=== PATIENT | male | born 1985 | race Hispanic/Latino ===

== ENCOUNTER 2019-12-12 09:04 | Inpatient (IN) | payer OTHER ==
[2019-12-12] MEDS ORDERED: Naloxone HCl 0.4 mg/ml Vial ONE (09:09)
[2019-12-12] MEDS ORDERED: Ketamine 50 MG/ML (10ML VIAL) ONE (09:19)
[2019-12-12] MEDS ORDERED: Succinylcholine Chloride 20 MG/ML 10 ml SYRINGE FS ONE ×3 (09:19→10:08)
[2019-12-12] MEDS ORDERED: Propofol 1,000 MG/100 ML VIAL IV ONE ×2 (09:27→12:49)
[2019-12-12] MEDS ORDERED: levETIRAcetam In NaCl (Iso-Os) 200 ML ONE (09:36)
[2019-12-12] MEDS ORDERED: Magnesium 2 GM/50 ML BAG (IN WATER) ONE (09:36)
[2019-12-12] MEDS ORDERED: Fentanyl 100 MCG/2 ML VIAL ONE (09:37)
[2019-12-12] MEDS ORDERED: Ondansetron PF 4 MG/2 ML Vial ONE (09:39)
[2019-12-12 10:06] LABS: #Basophils 0.1 thou/uL (0.0-0.2); #Lymphocytes 1.9 thou/uL (1.20-3.40); #Monocytes 0.8 thou/uL (0.11-0.59); #Neutrophils 16.2 thou/uL (1.40-6.50); %Basophils 0.3 % (0.0-1.0); %Eosinophils 0.2 % (0.0-10.0); %Lymphocytes 9.9 % (21.0-51.0); %Monocytes 4.2 % (0.0-10.0); %Neutrophils 85.4 % (42.0-75.0); Hemoglobin 14.1 g/dL (14.0-18.0); Mean Corpuscular HGB CONC 34.3 g/dL (32.0-36.0); Mean Corpuscular Hemoglobin 31.2 pg (27.0-31.0); Mean Corpuscular Volume 90.9 fL (78.0-98.0); Mean Platelet Volume 8.6 fL (7.4-10.4); Platelet Count 277 thou/uL (130-400); RBC Distribution Width 12.5 % (11.5-14.5); Red Blood Cell (RBC) Count 4.52 mill/uL (4.70-6.10); White Blood Cell (WBC) Count 18.9 thou/uL (4.8-10.8)
[2019-12-12] MEDS ORDERED: Labetalol HCl 100 MG/20 ML VIAL ONE (10:07)
[2019-12-12] MEDS ORDERED: fentaNYL Citrate/PF 2,000 MCG in Sodium Chloride 0.9% 60 ML IV SCH (10:15)
[2019-12-12 10:19] LABS: Acetaminophen Less than 6.0 mcg/mL (10.0-30.0); Alcohol Less than 10 mg/dL (Less than 10); CK (CPK) 294 U/L (30-200); Salicylate Less than 8.0 mg/dL (15.0-30.0)
[2019-12-12 10:21] LABS: ALT (SGPT) 56 U/L (8-55); AST (SGOT) 36 U/L (5-34); Albumin 4.1 g/dL (3.5-5.0); Alkaline Phosphatase 82 U/L (40-110); Anion Gap 16 mmol/L (10-20); BUN (Urea Nitrogen) 20 mg/dL (8.9-20.6); Bilirubin, Total 0.6 mg/dL (0.2-1.2); Calc. Creatinine Clearance 0 mL/min (70-130); Calcium 9.1 mg/dL (7.8-10.44); Carbon Dioxide 26 mmol/L (22-29); Chloride 100 mmol/L (98-107); Estimated GFR-MDRD 58; Globulin 4.2 g/dL (2.4-3.5); Glucose 192 mg/dL (70-105); Potassium 3.1 mmol/L (3.5-5.1); Protein, Total 8.3 g/dL (6.0-8.3); Sodium 139 mmol/L (136-145)
[2019-12-12 10:35] LABS: Bilirubin Negative (Negative); Blood, Urine 1+ (Negative); Clarity Turbid (Clear); Glucose, Urine (Dipstick) 70 mg/dL (Negative); Ketone, Urine Trace mg/dL (Negative); Leukocyte Negative Leu/uL (Negative); Nitrite Negative (Negative); Protein, Urine (Dipstick) 600 mg/dL (Neg-Trace); Specific Gravity, Urine 1.024 (1.002-1.036); Squamous Epithelial 0-3 HPF (0-3); Urobilinogen 3 mg/dL (Less than 2)
[2019-12-12 10:40] LABS: Amphetamine Not Detected (NotDetected); Barbiturates Screen Not Detected (NotDetected); Benzodiazepine Screen Not Detected (NotDetected); Cocaine Metabolite Screen Not Detected (NotDetected); Medtox Control Line Valid? VALID (VALID); Medtox Reader # READER 1; Methadone Not Detected (NotDetected); Methamphetamine Not Detected (NotDetected); Opiate Screen Not Detected (NotDetected); Oxycodone Screen Not Detected (NotDetected); Phencyclidine (PCP) Not Detected (NotDetected); THC/Cannabinoid Screen Not Detected (NotDetected); Tricyclic Screen Not Detected (NotDetected)
[2019-12-12 10:41] LABS: CKMB 3.1 ng/mL (0-6.6)
[2019-12-12 10:48] LABS: Bacteria/HPF None Seen HPF (None Seen); Calcium Oxalate Crystals 1+ HPF (None Seen)
--- NOTE | 2019-12-12 10:49 | RAD ---
EXAM: CHEST ONE VIEW HISTORY: Post intubation COMPARISON: None FINDINGS: Endotracheal tube is noted in place with the tip overlying the T4 vertebral body and above the level of the hilda. Nasogastric tube is noted in place which courses in the left upper quadrant, the tip is not imaged. The heart is magnified by projection and depth of inspiration. There is suggestion of mild widening of the mediastinum which may be attributable to technique and depth of inspiration, but repeat chest x-ray is recommended. There are patchy areas of increased density seen in the medial aspect right upper lung zone and at the left lung base which could be related to areas of volume loss. However, given history of trauma, areas of contusion cannot be excluded. No pleural fluid or pn eumothorax is appreciated on this supine chest x-ray.. No obvious fracture is seen. IMPRESSION: 1. Suggested widening of the mediastinum which may be factor of technique and depth of inspiration. R epeat chest x-ray versus CT scan thorax is recommended. 2. Patchy parenchymal densities medial aspect right upper lung zone and at the left lung base and to a lesser extent left perihilar region. These findings may be related to areas of atelectasis. Contusion is a possibility given history of trauma. 3. No pneumothorax or pleural effusion is evident. 4. Endotracheal tube and nasogastric tubes noted in place.
[2019-12-12] MEDS ORDERED: levETIRAcetam 500 MG/100 ML PREMIX BAG ONE (10:53)
--- NOTE | 2019-12-12 11:05 | CT ---
CT HEAD WITHOUT IV CONTRAST COMPARISON: None HISTORY: Decerebrated posturing on seen. Responsive only to pain. TECHNIQUE: Axial CT imaging at 5 mm intervals from vertex through skull base without contrast FINDINGS: There is increased density seen within the christopher measuring 2.8 cm x 1.6 cm compatible with hemorrhage within the christopher. There is mild adjacent edema. There is effacement of the fourth ventricle. No hemorrhage is seen within the cerebral hemispheres bilaterally. There is no evidence of hydrocepha amanda. No acute infarction or midline shift is seen. Skull base has a normal CT appearance. Visualized paranasal sinuses are clear. Osseous structures appear intact.Nasogastric tube is noted in place. On the welder gun image, there is rivka dence of a tracheostomy tube in place. IMPRESSION: 1. 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 There is no evidence of hydrocephalus. 2. Above findings discussed Dr. Miguel in the emergency department on 12/12/2019 at 1102 hours.
[2019-12-12] MEDS ORDERED: niCARdipine 20MG In NaCl 20 MG/200 ML BAG ONE ×2 (11:09→13:42)
--- NOTE | 2019-12-12 11:13 | CT ---
EXAM: CT cervical spine PROVIDED CLINICAL HISTORY: Patient found down with decerebrate posturing on seen. Responsive only to pain. Possible seizure. TECHNIQUE: Contiguous axial CT images are obtained through the cervical spine from the skull base to the T2 leve l. Sagittal and coronal reformatted images are provided. COMPARISON: None FINDINGS: There is partial visualization of a tracheostomy tube terminating in the trachea. Partial visualizati on of a nasogastric tube is noted in place. Visualized upper lung zones demonstrate area of consolidation in the medial right upper lung zone incompletely imaged. This could be related to atele ctasis or aspiration pneumonitis. Pneumonia is a possibility. There are additional minimal groundglass opacities in the right upper lung zone as well. Minimal atelectasis seen in the visualize d left lung apex. No fracture or traumatic subluxation is seen involving the cervical spine. As noted on head CT obtained prior to this examination, there is a large area of hemorrhage within th e central christopher with effacement of the fourth ventricle. There is fluid seen within the posterior nasopharynx and oropharynx likely related to placement trach eostomy device and endotracheal tube. No prevertebral soft tissue swelling apparent. IMPRESSION: 1. Incompletely visualized area of consolidation medial right upper lung zone with additional patchy groundglass densities in the visualized right lung apex. These findings are likely attributable to pneumonia or aspiration pneumonitis. Atelectasis is a possibility. Contusion is thought less likely. 2. Tracheostomy device and nasogastric tube in place. 3. No fracture or subluxation involving the cervical spine. 4. Central pontine hemorrhage..
[2019-12-12 11:25] LABS: SARS-CoV-2 NAA Rapid Test Not Detected (NotDetected)
[2019-12-12 11:33] LABS: INR-International Normal Ratio 1.1; PTT 31.9 sec (22.9-36.1)
[2019-12-12] MEDS ORDERED: Ondansetron PF 4 MG/2 ML Vial IVP PRN (12:15)
[2019-12-12] MEDS ORDERED: Docusate 100 MG CAP PO PRN (12:15)
[2019-12-12] MEDS ORDERED: Milk Of Magnesia 30 ML UDCUP PO PRN (12:15)
[2019-12-12 12:32] LABS: Actual Bicarbonate (HCO3a) 23.4 mEq/L (22-28); Base Excess (BEa) -1.1 mEq/L (-2.0 to +3.0); CO2 Tension 38.6 mmHg (35.0-45.0); Carboxyhemoglobin (COHb) 0.1 gm% (0.0-3.0)
[2019-12-12 12:33] LABS: Analyzer IN Cardio ER; Calcium, Ionized (arterial) 1.13 mmol/L (1.12-1.30); Potassium - ABG Lab 3.39 mmol/L (3.70-5.30); Puncture Site LRA
[2019-12-12] MEDS ORDERED: Ertapenem 1 GM in Sodium Chloride 0.9% 100 ML IVPB SCH (13:15)
[2019-12-12] MEDS ORDERED: Electrolyte Replacement Protoc 1 EACH EACH FS ONE (13:24)
[2019-12-12] MEDS ORDERED: DC Sedation Protocol FS ONE (13:24)
[2019-12-12] MEDS ORDERED: Electrolyte Replacement Protocol FS PRN (13:45)
--- NOTE | 2019-12-12 14:05 | CON ---
DATE OF CONSULTATION: 12/12/2019 CONSULTING PHYSICIAN: [facility]. REASON FOR CONSULTATION: The patient is on a ventilator. HISTORY OF PRESENT ILLNESS: This patient is a 34-year-old male, who has apparently found unresponsive by his father this morning. Initially, he was having some seizure-type activity. He was given some Ativan. He was brought to the ER. He was obtunded. They tried to intubate him, but could not get oropharyngeal airway and the patient ended up having to have a cricothyrotomy with subsequent passage of a size 6 endotracheal tube. This was later revised by the General Surgery Team. The patient was initially very hypertensive. He has been placed on a nicardipine drip. Unfortunately, CT scan has demonstrated a very large hemorrhage in his christopher. PAST MEDICAL HISTORY: Hypertension. PAST SURGICAL HISTORY: Unremarkable. SOCIAL HISTORY: Unremarkable. ALLERGIES: NONE. MEDICATIONS: Prior to admission, he takes some type of antihypertensive. REVIEW OF SYSTEMS: Cannot be obtained because the patient is obtunded. PHYSICAL EXAMINATION: VITAL SIGNS: Temperature is 98; pulse 75; blood pressure 149/80, on nicardipine drip; and O2 saturation 100%. NEUROLOGICAL: The patient has a completely unresponsive exam. His pupils are 2 mm, pinpoint, unreactive to light. He has no ocular movements. He has no blink reflex. He has no gag reflex. He has no response to pain in any of the extremities. No reflexive activity. He has no spontaneous respirations. HEENT: Otherwise, unremarkable. NECK: Remarkable for the cricothyrotomy site. LUNGS: Clear. CARDIAC: S1 and S2, regular. ABDOMEN: Obese. EXTREMITIES: No edema. LABORATORY DATA: Sodium 139, potassium 3.1, chloride 100, CO2 of 26, BUN 20, creatinine 1.4, and glucose 192. CPK 294, troponin 0.031. TSH 0.61. PH of 7.40, pCO2 of 38, pO2 of 64 on SIMV rate 24, tidal volume 500, PEEP 10, pressure support 10, and FiO2 of 100%. White blood cell count 18.9, hematocrit 41, and platelet count 277. Tox screen negative. COVID test negative. I reviewed CT. His chest x-ray shows no evidence of trauma. There may be a subtle right upper lobe and left lower lobe infiltrate. ASSESSMENT: 1. Pontine hemorrhage. 2. 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 3. Status post need for cricothyrotomy for airway. 4. Hypertension. PLAN: He has been started on IV antibiotics. He will remain on mechanical ventilation. He probably need a cerebral blood flow study tomorrow to better assess, but I do not think he is likely to survive this anoxic event. Job ID: [id number]
[2019-12-12] MEDS ORDERED: DISCONTINUE PREVIOUS NARCOTIC PAIN MEDICATIONS AND BENZODIAZEPINES FS SCH (14:15)
[2019-12-12] MEDS ORDERED: Fentanyl BOLUS 250 ML IVPB PRN (14:15)
[2019-12-12] MEDS ORDERED: Propofol BOLUS 1,000 MG/100 ML VIAL IV PRN (14:15)
[2019-12-12] MEDS ORDERED: Potassium Chloride 20 MEQ TAB PER TUBE SCH (14:30)
[2019-12-12] MEDS: Sodium Chloride 0.9% 1,000 ML IV SCH (14:33)
--- NOTE | 2019-12-12 15:26 | CON ---
NEUROLOGY CONSULTATION DATE OF CONSULTATION: 12/12/2019 REASON FOR CONSULTATION: Altered mental status. HISTORY OF PRESENT ILLNESS: Mr. Alanis Kay is a 34-year-old male with history significant for hypertension, who was found down by his father unresponsive this morning. Initially, there was a concern that he had some seizure-like activity on presentation and was given Ativan and brought to the emergency room for further evaluation. He was found obtunded at that time, but they were unable to intubate him because he could not get the oropharyngeal airway and he ended up having cricothyrotomy with subsequent endotracheal tube placement. The patient is unable to provide the history. History is obtained from review of the medical records and also from the who is at bedside. The patient was initially hypertensive and was started on nicardipine drip, and head CT was done, which shows a large hemorrhage in the christopher. REVIEW OF SYSTEMS: Unobtainable due to the patient's medical status. PAST MEDICAL HISTORY: Hypertension. PAST SURGICAL HISTORY: Unremarkable. SOCIAL HISTORY: . Lives with his and 13-year-old son. He works as a local company flatbed truck driver. No documented history of alcohol or drug abuse. ALLERGIES: NKDA PHYSICAL EXAMINATION: VITAL SIGNS: Blood pressure 140/80, pulse 80, respiratory rate 18. CVS: Regular rate and rhythm. CHEST: Clear. ABDOMEN: Soft. NECK: Supple. NEUROLOGIC: Mental status; the patient is intubated and does not follow commands or maintain eye contact. Cranial nerves; pupils 2 mm, round, nonreactive to light. Face symmetric. Tongue midline. Corneals negative. Gag negative. Cough negative. Motor; muscle tone and bulk are normal. Strength, no spontaneous movement of all 4 extremities seen. Sensory, no withdrawal of all 4 extremities to nailbed pressure. Cerebellar, could not be assessed due to the patient's condition. Gait, deferred due to the patient's medical condition. DIAGNOSTIC STUDIES: Data reviewed. I reviewed the head CT, which shows pontine hemorrhage. Other labs were reviewed. ASSESSMENT AND PLAN: Mr. Russell Kay is consulted for altered mental status. The patient has absent brainstem reflexes and long-tract signs, which means the chances of functional poor, recovery grave. Continue neuro checks every 2 hours. Continue medical management per primary team and Pulmonology. The patient is scheduled for cerebral blood flow study tomorrow to assess further prognosis. However, the chances of function, meaningful recovery remain grave based on his present exam. Consider EEG for anoxic brain injury pattern. Plan and findings were discussed with the and the nursing staff in detail. Thank you for the consult. Job ID: [id number] MTDD
[2019-12-12] MEDS: niCARdipine 25 MG in Sodium Chloride 0.9% 250 ML 240 ML IVPB PRN ×3 (15:49→19:26)
--- NOTE | 2019-12-12 17:13 | PRG ---
DATE OF SERVICE: 12/12/2019 I personally interviewed and examined the patient, agreed with documentation of Corbin Molina PA-C, dated 12/12/2019. Briefly, Russell Kay is a 34-year-old obese young man with hypertension and acute neurological decline. He was brought to our emergency department, where airway management was very difficult. A cricothyroidotomy was done and then he was sent for scanning of the brain. The brain scan revealed intracerebral hemorrhage in a very unfortunate location. This was the lower midbrain and upper and middle christopher. He did not develop hydrocephalus as of the first scan. Since that scan and his emergency department evaluation, he has been sent to the ICU. He has not made neurological recovery. On examination, there are pinpoint pupils. The pupils are so small, it is difficult to tell whether they react. There is sluggish corneal reflex on both sides. There is absent doll's eyes reflex. There is a gag and he is breathing over the ventilator. To painful stimulation, he does not want to draw any of his 4 extremities. There is no motion. I had a long discussion with the family sitting outside the hospital and informed them that there is a very poor prognosis with regard to returning to independence. The likely/best case scenario is survival with a marked decrease in independence. It is likely he will be dependent on others for feeding (perhaps feeding tube, tracheostomy care, and mobilization). Ascending and descending pathways through the christopher have been permanently damaged. Other pathways have been stretched and the proportion of speech can only be determined in the months to years that follow. Most likely, he will be discharged to a jail with continued aggressive care. A followup CT scan of the brain will be done tomorrow. Should he develop hydrocephalus, we will revisit with the family whether they would want an external ventricular drain placed or no further intervention. If they want a drain placed, there is a chance that he would become shunt dependent and that would be an operation, we would do at a later date. We briefly discussed all of these things with the family just to prepare them for what comes in the following days to weeks. (15 minutes). Job ID: [id number]
[2019-12-12] MEDS: Labetalol HCl 100 MG/20 ML VIAL SLOW IVP PRN (17:19)
--- NOTE | 2019-12-12 17:27 | CON ---
DATE OF CONSULTATION: 12/12/2019 CHIEF COMPLAINT: Evaluation of unresponsiveness. HISTORY OF PRESENT ILLNESS: Mr. Thapa is a 34-year-old gentleman, who presents to the ED with altered mental status and found by his father down and unresponsive. 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 When EMS arrived, patient was unresponsive and having seizure- like activity. He was given Ativan prior to transportation of the patient to the ED. When he arrived to the emergency room, he was given labetalol for his high blood pressure and was trached because they were unable to intubate him due to his size. Head CT indicated a pontine bleed. It is unconfirmed, but patient is believed not to be on any blood thinners. REVIEW OF SYSTEMS: Unable to obtain review of systems due to patient's unresponsiveness. PAST MEDICAL HISTORY: Unable to confirm with patient. SURGICAL HISTORY: Unable to confirm with patient. SOCIAL HISTORY: Unable to confirm with patient. MEDICATIONS: Unknown. Unable to obtain. ALLERGIES: NO KNOWN ALLERGIES. UNABLE TO CONFIRM WITH PATIENT. PHYSICAL EXAMINATION: VITAL SIGNS: BP 210/136, pulse 82, respiratory rate 26, and temperature 99.8. HEENT: Head, atraumatic, normocephalic. Eyes, pinpoint. Pupils with minimal reactivity. NECK: Normal. NEUROLOGIC: Patient is obtunded on exam. He is not awake or alert. There is no posturing with painful stimuli in any of his extremities. LABORATORY DATA: WBC 18.9, platelets 277. PT 15, INR 1.1, and PTT 31.9. Sodium 139. Toxicology screen, no illicit drugs are noted. Head CT, pontine bleed. ASSESSMENT: 1. Pontine hemorrhage. 2. Unresponsiveness with altered mental status. PLAN: Repeat the CT of the brain tomorrow morning. Supportive care. No intracranial surgery at this time. We will have him followup in 2 to 3 weeks in our clinic and repeat the scan prior to the visit. We will also get an MRI of the brain in 1 to 3 months, hopefully if recovers. Job ID: [id number] MTDD
--- NOTE | 2019-12-12 17:42 | CON ---
DATE OF CONSULTATION: 12/12/2019 CHIEF COMPLAINT: Evaluation of unresponsiveness. HISTORY OF PRESENT ILLNESS: Mr. Thapa is a 34-year-old gentleman, who presents to the ED with altered mental status and found by his father down and unresponsive. 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 When EMS arrived, patient was unresponsive and having seizure-like activity. He was given Ativan prior to transportation of the patient to the ED. When he arrived to the emergency room, he was given labetalol for his high blood pressure and was trached because they were unable to intubate him due to his size. Head CT indicated a pontine bleed. It is unconfirmed, but patient is believed not to be on any blood thinners. REVIEW OF SYSTEMS: Unable to obtain review of systems due to patient's unresponsiveness. PAST MEDICAL HISTORY: Unable to confirm with patient. SURGICAL HISTORY: Unable to confirm with patient. SOCIAL HISTORY: Unable to confirm with patient. MEDICATIONS: Unknown. Unable to obtain. ALLERGIES: NO KNOWN ALLERGIES. UNABLE TO CONFIRM WITH PATIENT. PHYSICAL EXAMINATION: VITAL SIGNS: BP 210/136, pulse 82, respiratory rate 26, and temperature 99.8. HEENT: Head, atraumatic, normocephalic. Eyes, pinpoint. Pupils with minimal reactivity. NECK: Normal. NEUROLOGIC: Patient is obtunded on exam. He is not awake or alert. There is no posturing with painful stimuli in any of his extremities. LABORATORY DATA: WBC 18.9, platelets 277. PT 15, INR 1.1, and PTT 31.9. Sodium 139. Toxicology screen, no illicit drugs are noted. Head CT, pontine bleed. ASSESSMENT: 1. Pontine hemorrhage. 2. Unresponsiveness with altered mental status. PLAN: Repeat the CT of the brain tomorrow morning. Supportive care. No intracranial surgery at this time. We will have him followup in 2 to 3 weeks in our clinic and repeat the scan prior to the visit. We will also get an MRI of the brain in 1 to 3 months, hopefully if recovers. Job ID: [id number]
--- NOTE | 2019-12-12 18:15 | CON ---
DATE OF CONSULTATION: CHIEF COMPLAINT: The patient was found unresponsive. HISTORY OF PRESENT ILLNESS: The patient is a 34-year-old male, with past medical history of hypertension, who was found to be unresponsive by his father this morning inside his vehicle. The patient was brought to the ER by EMS. Some shaking activity was noted and he was given Ativan. In the ER, the patient was completely unresponsive and several trials of oropharyngeal intubation were unsuccessful and the patient subsequently underwent cricothyroidotomy by Anesthesia and Surgical Team. His systolic blood pressure was greater than 200 and he was started on a nicardipine drip. CT scan of the brain without contrast revealed large point hemorrhage. PAST MEDICAL HISTORY: As noted above. PAST SURGICAL HISTORY: Unable to obtain due to altered mental status. REVIEW OF SYSTEMS: Negative, except as noted in the HPI. ALLERGIES: NONE KNOWN. PHYSICAL EXAMINATION: GENERAL: The patient is currently intubated and sedated. HEENT: His pupils are pinpoint bilaterally. Head is normocephalic and atraumatic. CHEST: Auscultation reveals crackles bilaterally. ABDOMEN: Soft and bowel sounds are audible. CARDIOVASCULAR: Examination revealed normal S1, S2. No murmurs, rubs, or gallops. EXTREMITIES: Did not show any edema. NEUROLOGIC EXAMINATION: Cannot be accurately obtained due to sedation. ASSESSMENT: 1. Acute pontine hemorrhagic cerebrovascular accident. 2. Altered mental status due to #1. 3. Intubated for airway protection. 4. Right upper lobe infiltrates with possible pneumonia. 5. Leukocytosis and possible sepsis. 6. Hypertensive emergency. PLAN: The patient will be admitted to the intensive care unit. His cricothyroidectomy will likely be transformed into a tracheostomy at a later date if the patient survived this event. He is on ertapenem for possible sepsis and pneumonia. Continue nicardipine drip to maintain systolic blood pressure less than 150 systolic. The patient is on Keppra for possible seizure related to his acute CVA. Pulmonology, Neurosurgery, and ENT on board. SCDs for DVT prophylaxis. No pharmacologic prophylaxis due to intracranial hemorrhage. Management of mechanical ventilation and sedation per Pulmonology and Critical Care Team. Job ID: [id number]
[2019-12-12] MEDS: niCARdipine 50 MG in Sodium Chloride 0.9% 250 ML 230 ML IVPB PRN (21:19)
[2019-12-12] MEDS: fentaNYL Citrate/PF 2,000 MCG in Sodium Chloride 0.9% 60 ML IV SCH (21:30)
[2019-12-13] MEDS: Acetaminophen 325 MG TAB PO PRN ×3 (00:24→21:53)
[2019-12-13] MEDS: niCARdipine 50 MG in Sodium Chloride 0.9% 250 ML 230 ML IVPB PRN ×4 (01:11→22:02)
[2019-12-13] MEDS: Sodium Chloride 0.9% 1,000 ML IV SCH ×2 (02:51→16:34)
[2019-12-13 04:22] LABS: Anion Gap 16 mmol/L (10-20); BUN (Urea Nitrogen) 30 mg/dL (8.9-20.6); Calc. Creatinine Clearance 66 mL/min (70-130); Calcium 7.9 mg/dL (7.8-10.44); Carbon Dioxide 24 mmol/L (22-29); Chloride 103 mmol/L (98-107); Estimated GFR-MDRD 22; Glucose 141 mg/dL (70-105); Potassium 4.2 mmol/L (3.5-5.1); Sodium 139 mmol/L (136-145)
[2019-12-13 04:23] LABS: Band 27 % (5-11); Hemoglobin 13.5 g/dL (14.0-18.0); Hypochromia SLIGHT = 6-15 cells (100X) (0-5/hpf); Lymphocytes 6 % (21-51); MDiff Complete? YES; Mean Corpuscular HGB CONC 33.5 g/dL (32.0-36.0); Mean Corpuscular Hemoglobin 31.1 pg (27.0-31.0); Mean Corpuscular Volume 92.6 fL (78.0-98.0); Mean Platelet Volume 8.4 fL (7.4-10.4); Metamyelocyte 3 % (0-0); Monocytes 3 % (0-10); Neutrophil 61 % (42-75); Platelet Count 285 thou/uL (130-400); Platelet Morphology Comment Appears Adequate; RBC Distribution Width 12.8 % (11.5-14.5); Red Blood Cell (RBC) Count 4.35 mill/uL (4.70-6.10); White Blood Cell (WBC) Count 28.2 thou/uL (4.8-10.8)
[2019-12-13] MEDS: Propofol 1,000 MG/100 ML VIAL IV PRN (06:38)
[2019-12-13 07:06] LABS: Actual Bicarbonate (HCO3a) 28.1 mEq/L (22-28); Base Excess (BEa) -1.2 mEq/L (-2.0 to +3.0); Calcium, Ionized (arterial) 1.08 mmol/L (1.12-1.30); Carboxyhemoglobin (COHb) 0.7 gm% (0.0-3.0); Hemoglobin (Hb) 15.6 g/dL (14.0-18.0); Potassium - ABG Lab 4.05 mmol/L (3.70-5.30)
[2019-12-13 07:23] LABS: CO2 Tension 67.4 mmHg (35.0-45.0); O2 Tension (PaO2), arterial 53.9 mmHg (80.0-100.0); Puncture Site RRAD; pH, Arterial 7.24 (7.35-7.45)
[2019-12-13] MEDS: Pantoprazole 40 MG VIAL IVP SCH (09:12)
[2019-12-13] MEDS: Piperacillin/Tazobactam 2.25 GM in Sodium Chloride 0.9% 100 ML IVPB SCH ×2 (09:12→16:31)
--- NOTE | 2019-12-13 09:58 | CT ---
PRELIMINARY REPORT/[facility]/EMERGENCY AFTER HOURS PROCEDURE: EXAM: CT Head Without Intravenous Contrast. CLINICAL HISTORY: F/u pontine bleed TECHNIQUE: Axial computed tomography images of the head/brain without intravenous contrast. COMPARISON: December 12, 2019 FINDINGS: BRAIN: Acute pontine hemorrhage noted on prior study is again seen, grossly unchanged. Some effaceme nt of the fourth ventricle and aqueduct again noted which appears slightly less prominent on the curr ent study. VENTRICLES: No hydrocephalus. ORBITS: The orbits are unremarkable. SOFT TISSUES: No significant facial or scalp soft tissue swelling evident. No radiopaque foreign body is seen. BONES: No acute skull fracture. IMPRESSION: Pontine hematoma about the same with a slight decrease in mass-effect. ELECTRONICALLY SIGNED BY: Coribn Rodriguez MD Dec 13, 2019 4:24:14 AM CDT FINAL REPORT EMERGENT AFTER HOURS CT OF BRAIN PERFORMED WITHOUT CONTRAST ENHANCEMENT: HISTORY: Followup of pontine hemorrhage. COMPARISON: Prior day's exam. FINDINGS: The hemorrhage along the more posterior aspect of the christopher region is a stable finding as compared to the prior examination. Ventricles are unchanged in size. No mass effect. IMPRESSION: 1. Stable pontine hemorrhage. 2. This report is in agreement with the temporary report issued by [facility]. POS: OFF
--- NOTE | 2019-12-13 10:11 | PRG ---
DATE OF SERVICE: 12/13/2019 35 minutes of critical care time. SUBJECTIVE: The patient remains on mechanical ventilation through a cricothyrotomy. He is unresponsive to painful stimuli, but does have spontaneous respirations. OBJECTIVE: VITAL SIGNS: Temperature is 103, pulse 108, blood pressure 140/93. 24-hour intake 2785, output 930. HEENT: Pupils pinpoint, difficult to tell if they react. Oropharynx clear. NECK: He had air leaking around his cricothyrotomy. LUNGS: Clear. CARDIAC: S1 and S2. Slightly tachycardic. ABDOMEN: Obese, soft, nontender. EXTREMITIES: No edema. LABORATORY DATA: Sodium 139, potassium 4.2, chloride 103, CO2 of 24, BUN 30, creatinine 3.2, glucose 141. Troponin 0.038. pH 7.24, pCO2 of 67, PO2 of 53 on a SIMV rate 20, tidal volume of 500, PEEP 10, pressure support 10, and FiO2 of 100%. White blood cell count 28.2, hematocrit 40, platelet count 285. His COVID test was negative. Head CT continued to show the pontine bleed. ASSESSMENT: 1. Status post pontine bleed secondary to severe hypertension. 2. Acute respiratory failure requiring mechanical ventilation through tracheostomy. PLAN: The patient is currently undergoing EEG evaluation. He will remain on supportive care with mechanical ventilation. I have added saline to the Bivona cuffed tube so that we can get a better seal and better ventilation. His respiratory rate has been increased. He will be treated with antipyretic medication for his fever. Job ID: [id number]
--- NOTE | 2019-12-13 10:33 | PRG ---
DATE OF SERVICE: 12/13/2019 I saw Mr. Alanis Kay in his ICU room this morning. He is admitted for intracerebral hemorrhage in the brainstem. Since yesterday, he has been on propofol until the early hours of this morning and then it was stopped. No events have been reported. Among the electronically recorded vital signs, I do not see any fevers. Blood pressures have been in the 110s to 130s since his admission. The examination is similar yesterday, although he has a decreased corneal reflex on the right. Preserved corneal reflex on the left. No doll's eyes. Pinpoint pupils. A gag and breathing over the ventilator. There is no motion in the extremities to stimulus. Sodium was 141, the last time it was checked. Video EEG has been done. There is brain activity. 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 This is a difficult situation to communicate the family. His sister realizes that he could remain conscious, but completely disconnected from his body. Some degree of connection could reform if there are fiber tracts that are stretched and not torn, but I doubt he is going to return to independence. Going forward, if want to be aggressive, we will continue to monitor for hydrocephalus and consider putting in the EVD or shunt should it develop. Permanent tracheostomy and permanent feeding tube should be contemplated if we are going to be aggressive. If the family elects not to be aggressive, then those measures do not need to be instituted. We will continue to follow along. (15 min) Job ID: [id number] MTDD
--- NOTE | 2019-12-13 16:05 | PDOC.NEUPN ---
- Subjective Encounter Date: 12/13/19 Subjective: Patient continues to be unresponsive. EEG negative for seizure activity. - Objective Vital Signs & Weight: Vital Signs (12 hours) Temp Pulse Resp Pulse Ox 12/13/19 15:07 87 12/13/19 15:00 98.8 F 12/13/19 14:00 99.1 F 28 H 12/13/19 13:00 100.8 F H 12/13/19 12:00 102.0 F H 28 H 12/13/19 11:00 103.2 F H 12/13/19 10:29 107 H 12/13/19 10:00 28 H 12/13/19 08:00 103.0 F H 28 H 96 12/13/19 07:26 109 H 12/13/19 07:00 103.1 F H 12/13/19 06:00 20 12/13/19 05:00 100.8 F H Weight Weight 316 lb 2.286 oz Most Recent Monitor Data Heart Rate from ECG 88 NIBP 147/85 NIBP BP-Mean 105 Respiration from ECG 0 SpO2 87 I&O: 12/12/19 12/13/19 12/14/19 06:59 06:59 06:59 Intake Total 2785 Output Total 930 150 Balance 1855 -150 Result Diagrams: 12/13/19 03:32 12/13/19 03:32 Radiology Reviewed by me: Yes EKG Reviewed by me: Yes ROS - Review of Systems ROS unobtainable: due to endotracheal tube - Medication Medications: Active Medications Generic Name Dose Route Start Last Admin Trade Name Freq PRN Reason Stop Dose Admin Acetaminophen 650 mg 12/12/19 12:15 12/13/19 05:28 Acetaminophen 325 Mg Tab PO 650 mg Q6H PRN Administration Fever > 101 or Headache Sodium Chloride 1,000 mls @ 75 mls/hr 12/12/19 12:15 12/13/19 02:51 Normal Saline 0.9% IV Not Given .[id number] CHRIS Levetiracetam 500 mg/ Device 100 mls @ 200 mls/hr 12/12/19 21:00 12/13/19 09:11 IVPB 100 mls BID CHRIS Administration Fentanyl Citrate 2,000 mcg/ 100 mls @ 0 mls/hr 12/12/19 14:15 12/12/19 21:30 Sodium Chloride IV 01/11/20 14:15 100 mls INF CHRIS Administration Protocol Per Protocol Nicardipine HCl 50 mg/ Sodium 250 mls @ 0 mls/hr 12/12/19 20:46 12/13/19 01:11 Chloride IVPB 250 mls INF PRN Administration SBP > 140 Protocol Titrate Piperacillin Sod/Tazobactam 100 mls @ 200 mls/hr 12/13/19 09:00 12/13/19 09:12 Sod 2.25 gm/ Sodium Chloride IVPB 100 mls 0100,0900,1700 CHRIS Administration Labetalol HCl 10 mg 12/12/19 12:15 12/12/19 17:19 Labetalol Hcl 100 Mg/20 Ml Vial SLOW IVP 10 mg Q2H PRN Administration SBP > 140 Pantoprazole Sodium 40 mg 12/13/19 09:00 12/13/19 09:12 Pantoprazole 40 Mg Vial IVP 40 mg DAILY CHRIS Administration Propofol 1,000 mg 12/12/19 14:15 12/13/19 06:38 Propofol 1,000 Mg/100 Ml Vial IV 01/11/20 14:15 1,000 mg INF PRN Administration TO ACHIEVE GOAL RASS Protocol - Exam General Appearance: ill appearing Eye - other findings: pupils 2 mm non reactive corneals neg gag neg cough neg ENT: normocephalic atraumatic, no oropharyngeal lesions Neck: supple Respiratory: CTAB Cardiovascular: RRR Gastrointestinal: soft Extremities: no cyanosis Skin: normal turgor Neurological: no new deficit Neurological - other findings: withdrwas all 4 extremities to nailbed pressure TOES upgoing bilaterally Musculoskeletal - other findings: no spontaneous movements of all 4 extremities PSYCH: not oriented Results - Labs Result Diagrams: 12/13/19 03:32 12/13/19 03:32 Lab results: WBC 28.2 thou/uL (4.8-10.8) H 12/13/19 03:32 Hgb 13.5 g/dL (14.0-18.0) L 12/13/19 03:32 Hct 40.3 % (42.0-52.0) L 12/13/19 03:32 MCV 92.6 fL (78.0-98.0) 12/13/19 03:32 Plt Count 285 thou/uL (130-400) 12/13/19 03:32 Neutrophils % 85.4 % (42.0-75.0) H 12/12/19 09:49 Band Neuts % (Manual) 27 % (5-11) H 12/13/19 03:32 ABG pH 7.24 (7.35-7.45) L* 12/13/19 06:55 ABG pCO2 67.4 mmHg (35.0-45.0) H* 12/13/19 06:55 ABG pO2 53.9 mmHg (80.0-100.0) L* 12/13/19 06:55 Sodium 139 mmol/L (136-145) 12/13/19 03:32 Potassium 4.2 mmol/L (3.5-5.1) 12/13/19 03:32 Chloride 103 mmol/L (98-107) 12/13/19 03:32 Carbon Dioxide 24 mmol/L (22-29) 12/13/19 03:32 BUN 30 mg/dL (8.9-20.6) H 12/13/19 03:32 Creatinine 3.25 mg/dL (0.7-1.3) H 12/13/19 03:32 Glucose 141 mg/dL (70-105) H 12/13/19 03:32 Calcium 7.9 mg/dL (7.8-10.44) 12/13/19 03:32 Total Bilirubin 0.6 mg/dL (0.2-1.2) 12/12/19 09:49 AST 36 U/L (5-34) H 12/12/19 09:49 ALT 56 U/L (8-55) H 12/12/19 09:49 Alkaline Phosphatase 82 U/L (40-110) 12/12/19 09:49 Creatine Kinase 294 U/L (30-200) H 12/12/19 09:49 CK-MB (CK-2) 3.1 ng/mL (0-6.6) 12/12/19 09:49 Troponin I 0.038 ng/mL (< 0.028) H 12/12/19 09:49 Serum Total Protein 8.3 g/dL (6.0-8.3) 12/12/19 09:49 Albumin 4.1 g/dL (3.5-5.0) 12/12/19 09:49 Urine Ketones Trace mg/dL (Negative) A 12/12/19 10:04 Urine Blood 1+ (Negative) A 12/12/19 10:04 Urine Nitrite Negative (Negative) 12/12/19 10:04 Ur Leukocyte Esterase Negative Shahram/uL (Negative) 12/12/19 10:04 Urine RBC 4-6 HPF (0-3) A 12/12/19 10:04 Urine WBC 4-6 HPF (0-3) A 12/12/19 10:04 Ur Squamous Epith Cells 0-3 HPF (0-3) 12/12/19 10:04 Urine Bacteria None Seen HPF (None Seen) 12/12/19 10:04 - Radiology Interpretation MRI - head Status: image reviewed by me, report reviewed by me Additional Comment: large central pontine hemorrhage PN A/P (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 Clinical exam changed since yesterday . Propofol off since 7 am. He still has absent brainstem reflexes. Pupils 2 mm nonreactive, corneals, gag and cough negative, Partially preserved long tract signs. No spontaneous movements of all 4 extremities but withdrawal elicited on nailbed pressure. Babinski positive bilaterally. Per nuring staff, he is breathing over vent. EEG reviewed and was negative for seizure activity . 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 Continue Keppra 500 mg IV Q12 for seizute prophylaxis. Ativan 2 mg IV for seizure greater than 2 minutes. Neurochecks every 2 hours. Observe seizure precautions. Strict control of BP. Avoid antiplatelets and anticoagulants due to further risk of bleed. Continue medical management per neurosurgery, medicine and pulmonology. Plan discussed with the nursing staff and the family member.
--- NOTE | 2019-12-13 16:59 | PDOC.HOSPP ---
- Subjective Encounter Date: 12/13/19 Encounter Time: 12:55 Subjective: Pt is stable on the vent. He is not responsive to commands. - Objective Vital Signs & Weight: Vital Signs (12 hours) Temp Pulse Resp Pulse Ox 12/13/19 16:00 30 H 12/13/19 15:07 87 12/13/19 15:00 98.8 F 12/13/19 14:00 99.1 F 28 H 12/13/19 13:00 100.8 F H 12/13/19 12:00 102.0 F H 28 H 12/13/19 11:00 103.2 F H 12/13/19 10:29 107 H 12/13/19 10:00 28 H 12/13/19 08:00 103.0 F H 28 H 96 12/13/19 07:26 109 H 12/13/19 07:00 103.1 F H 12/13/19 06:00 20 12/13/19 05:00 100.8 F H Weight Weight 316 lb 2.286 oz Most Recent Monitor Data Heart Rate from ECG 91 NIBP 143/78 NIBP BP-Mean 99 Respiration from ECG 13 SpO2 88 I&O: 12/12/19 12/13/19 12/14/19 06:59 06:59 06:59 Intake Total 2785 Output Total 930 195 Balance 1855 -195 Result Diagrams: 12/13/19 03:32 12/13/19 03:32 Hospitalist ROS - Review of Systems ROS unobtainable: due to mental status - Medication Medications: Active Medications Generic Name Dose Route Start Last Admin Trade Name Freq PRN Reason Stop Dose Admin Acetaminophen 650 mg 12/12/19 12:15 12/13/19 05:28 Acetaminophen 325 Mg Tab PO 650 mg Q6H PRN Administration Fever > 101 or Headache Sodium Chloride 1,000 mls @ 75 mls/hr 12/12/19 12:15 12/13/19 16:34 Normal Saline 0.9% IV 1,000 mls .[id number] CHRIS Administration Levetiracetam 500 mg/ Device 100 mls @ 200 mls/hr 12/12/19 21:00 12/13/19 09:11 IVPB 100 mls BID CHRIS Administration Fentanyl Citrate 2,000 mcg/ 100 mls @ 0 mls/hr 12/12/19 14:15 12/12/19 21:30 Sodium Chloride IV 01/11/20 14:15 100 mls INF CHRIS Administration Protocol Per Protocol Nicardipine HCl 50 mg/ Sodium 250 mls @ 0 mls/hr 12/12/19 20:46 12/13/19 16:32 Chloride IVPB 250 mls INF PRN Administration SBP > 140 Protocol Titrate Piperacillin Sod/Tazobactam 100 mls @ 200 mls/hr 12/13/19 09:00 12/13/19 16:31 Sod 2.25 gm/ Sodium Chloride IVPB 100 mls 0100,0900,1700 CHRIS Administration Labetalol HCl 10 mg 12/12/19 12:15 12/12/19 17:19 Labetalol Hcl 100 Mg/20 Ml Vial SLOW IVP 10 mg Q2H PRN Administration SBP > 140 Pantoprazole Sodium 40 mg 12/13/19 09:00 12/13/19 09:12 Pantoprazole 40 Mg Vial IVP 40 mg DAILY CHRIS Administration Propofol 1,000 mg 12/12/19 14:15 12/13/19 06:38 Propofol 1,000 Mg/100 Ml Vial IV 01/11/20 14:15 1,000 mg INF PRN Administration TO ACHIEVE GOAL RASS Protocol - Exam General Appearance: ill appearing General - other findings: Pt is intubated, not sedated but does not respond to command. Eye: anicteric sclera ENT: normocephalic atraumatic, no oropharyngeal lesions ENT - other findings: Trach noted Neck: symmetric, no JVD, no thyromegaly Heart: RRR, no murmur, no gallops, no rubs Respiratory: CTAB, no wheezes, no rales Gastrointestinal: soft, non-tender, non-distended, normal bowel sounds Extremities: no cyanosis, no clubbing, no edema Skin: normal turgor, no lesions Neurological - other findings: Non responsive to commands. Withdraws from touch of foot. Musculoskeletal: no muscle wasting Psychiatric: not oriented, somnolent, lethargic Hosp A/P (1) AMS (altered mental status) Code(s): R41.82 - ALTERED MENTAL STATUS, UNSPECIFIED Status: Acute Plan: Pt is not responding to commands off sedation. 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 Prognosis is poor. Will f/u with further neuro recs. (3) Pontine hemorrhage Code(s): I61.3 - NONTRAUMATIC INTRACEREBRAL HEMORRHAGE IN BRAIN STEM Status: Acute Plan: Note on CT scan. provide supportive care. (4) Respiratory failure Code(s): J96.90 - RESPIRATORY FAILURE, UNSP, UNSP W HYPOXIA OR HYPERCAPNIA Status: Acute Qualifiers: Chronicity: acute Respiratory failure complication: hypoxia Qualified Code(s): J96.01 - Acute respiratory failure with hypoxia Plan: Cont vent support via trach per Pulm. (5) Seizure Code(s): R56.9 - UNSPECIFIED CONVULSIONS Status: Acute Plan: No seizures noted, cont prophylactic seizure meds. - Plan DVT proph w/SCDs PPx: SCDs. CODE: Full. Poor prognosis. Dispo: Cont current mgt.
--- NOTE | 2019-12-13 20:18 | OP ---
DATE OF PROCEDURE: 12/12/2019 PREOPERATIVE DIAGNOSIS: Emergency airway potential compromise. PROCEDURE PERFORMED: Emergency tracheostomy. INDICATIONS: This is a 34-year-old male who was found down in a truck on the side of the road, agonal breathing. They were unable to intubate and they did a bag-valve mask. He was brought to the ER where they were having difficulty ventilating, and emergently, he had a cricothyroidotomy. They only had a 6-mm endotracheal tube in there, so they asked for a tracheostomy. FINDINGS: 7-mm Bivona tracheostomy tube placed. DESCRIPTION OF PROCEDURE: On an emergency basis, the patient was oxygenated maximally, suctioned, and then the tracheal bougie was inserted through the existing endotracheal tube. The balloon was deflated, it was removed. The 7-Sudanese Bivona was inserted. I was able to kind of twist it a little bit and get it to pop through the membrane into the trachea, then was able to inflate the balloon and connect to the ventilator. We got good breath sounds bilateral, it was secured. The initial skin incision that had been made was hemorrhaging, so Gelfoam was inserted circumferentially around this as well as a sterile bandage. The patient tolerated the procedure well. Job ID: [id number]
[2019-12-14] MEDS: Piperacillin/Tazobactam 2.25 GM in Sodium Chloride 0.9% 100 ML IVPB SCH ×3 (01:24→17:18)
[2019-12-14] MEDS: Labetalol HCl 100 MG/20 ML VIAL SLOW IVP PRN ×2 (02:16→14:51)
[2019-12-14] MEDS: niCARdipine 50 MG in Sodium Chloride 0.9% 250 ML 230 ML IVPB PRN ×3 (03:19→10:45)
[2019-12-14 03:44] LABS: Band 20 % (5-11); Hemoglobin 11.4 g/dL (14.0-18.0); Lymphocytes 10 % (21-51); MDiff Complete? YES; Mean Corpuscular HGB CONC 34.5 g/dL (32.0-36.0); Mean Corpuscular Hemoglobin 31.7 pg (27.0-31.0); Mean Corpuscular Volume 91.9 fL (78.0-98.0); Mean Platelet Volume 9.3 fL (7.4-10.4); Metamyelocyte 3 % (0-0); Monocytes 4 % (0-10); Neutrophil 63 % (42-75); Platelet Count 228 thou/uL (130-400); Platelet Morphology Comment Appears Adequate; RBC Distribution Width 12.5 % (11.5-14.5); White Blood Cell (WBC) Count 19.3 thou/uL (4.8-10.8)
[2019-12-14 04:04] LABS: Anion Gap 14 mmol/L (10-20); BUN (Urea Nitrogen) 45 mg/dL (8.9-20.6); Calc. Creatinine Clearance 74 mL/min (70-130); Calcium 7.9 mg/dL (7.8-10.44); Carbon Dioxide 19 mmol/L (22-29); Chloride 109 mmol/L (98-107); Estimated GFR-MDRD 25; Glucose 118 mg/dL (70-105); Potassium 3.3 mmol/L (3.5-5.1); Sodium 139 mmol/L (136-145)
[2019-12-14 06:49] LABS: Actual Bicarbonate (HCO3a) 23.9 mEq/L (22-28); Base Excess (BEa) 0.4 mEq/L (-2.0 to +3.0); CO2 Tension 34.5 mmHg (35.0-45.0); Calcium, Ionized (arterial) 1.09 mmol/L (1.12-1.30); Carboxyhemoglobin (COHb) 0.1 gm% (0.0-3.0); Potassium - ABG Lab 3.12 mmol/L (3.70-5.30); pH, Arterial 7.46 (7.35-7.45)
[2019-12-14] MEDS ORDERED: Potassium Chloride 20 MEQ in Premix Bag 1 BAG IVPB SCH (07:00)
[2019-12-14 07:14] LABS: O2 Tension (PaO2), arterial 51.3 mmHg (80.0-100.0)
[2019-12-14 07:15] LABS: ALV-art Gradient 618.575 mmHg (0-20); Puncture Site RR
--- NOTE | 2019-12-14 07:54 | PDOC.HOSPP ---
- Subjective Encounter Date: 12/14/19 Encounter Time: 07:49 Subjective: intubated, unresponsive - Objective Vital Signs & Weight: Vital Signs (12 hours) Temp Pulse Resp BP Pulse Ox 12/14/19 06:00 30 H 12/14/19 04:57 93 12/14/19 04:00 98.9 F 34 H 12/14/19 03:09 83 12/14/19 02:16 91 155/83 H 12/14/19 02:00 28 H 12/14/19 01:20 93 12/14/19 00:00 98.9 F 28 H 12/13/19 22:13 103 H 12/13/19 22:00 28 H 12/13/19 20:00 99.5 F 28 H 90 L Weight Weight 328 lb 0.765 oz Most Recent Monitor Data Heart Rate from ECG 89 NIBP 146/96 NIBP BP-Mean 112 Respiration from ECG 24 SpO2 93 I&O: 12/13/19 12/14/19 12/15/19 06:59 06:59 06:59 Intake Total 2785 3278 Output Total 930 1440 Balance 1855 1838 Result Diagrams: 12/14/19 03:19 12/14/19 03:19 Hospitalist ROS - Medication Medications: Active Medications Generic Name Dose Route Start Last Admin Trade Name Freq PRN Reason Stop Dose Admin Acetaminophen 650 mg 12/12/19 12:15 12/13/19 21:53 Acetaminophen 325 Mg Tab PO 650 mg Q6H PRN Administration Fever > 101 or Headache Sodium Chloride 1,000 mls @ 75 mls/hr 12/12/19 12:15 12/13/19 16:34 Normal Saline 0.9% IV 1,000 mls .[id number] CHRIS Administration Levetiracetam 500 mg/ Device 100 mls @ 200 mls/hr 12/12/19 21:00 12/13/19 21:45 IVPB 100 mls BID CHRIS Administration Fentanyl Citrate 2,000 mcg/ 100 mls @ 0 mls/hr 12/12/19 14:15 12/12/19 21:30 Sodium Chloride IV 01/11/20 14:15 100 mls INF CHRIS Administration Protocol Per Protocol Nicardipine HCl 50 mg/ Sodium 250 mls @ 0 mls/hr 12/12/19 20:46 12/14/19 06:09 Chloride IVPB 250 mls INF PRN Administration SBP > 140 Protocol Titrate Piperacillin Sod/Tazobactam 100 mls @ 200 mls/hr 12/13/19 09:00 12/14/19 01:24 Sod 2.25 gm/ Sodium Chloride IVPB 100 mls 0100,0900,1700 CHRIS Administration Labetalol HCl 10 mg 12/12/19 12:15 12/14/19 02:16 Labetalol Hcl 100 Mg/20 Ml Vial SLOW IVP 10 mg Q2H PRN Administration SBP > 140 Pantoprazole Sodium 40 mg 12/13/19 09:00 12/13/19 09:12 Pantoprazole 40 Mg Vial IVP 40 mg DAILY CHRIS Administration Propofol 1,000 mg 12/12/19 14:15 12/13/19 06:38 Propofol 1,000 Mg/100 Ml Vial IV 01/11/20 14:15 1,000 mg INF PRN Administration TO ACHIEVE GOAL RASS Protocol - Exam Neck: no JVD Heart: RRR, no murmur Respiratory - other findings: coarse BS bilat Gastrointestinal: soft, non-tender, normal bowel sounds Extremities: 1+ LE edema Neurological: no focal deficits Hosp A/P (1) Encephalopathy acute Code(s): G93.40 - ENCEPHALOPATHY, UNSPECIFIED Status: Acute (2) Hypertensive crisis Code(s): I16.9 - HYPERTENSIVE CRISIS, UNSPECIFIED Status: Acute (3) Acute respiratory failure with hypoxemia Code(s): J96.01 - ACUTE RESPIRATORY FAILURE WITH HYPOXIA Status: Acute (4) Acute renal failure Status: Acute Qualifiers: Acute renal failure type: unspecified Qualified Code(s): N17.9 - Acute kidney failure, unspecified (5) Pontine hemorrhage Code(s): I61.3 - NONTRAUMATIC INTRACEREBRAL HEMORRHAGE IN BRAIN STEM Status: Acute - Plan post emergent tracheostomy resp failure requiring mech ventilation cont iv antibx cont iv seizure meds on iv cardene monitor renal fcn, etc discuss with regional company truck driver
--- NOTE | 2019-12-14 07:55 | PRG ---
DATE OF SERVICE: 12/14/2019 I saw Mr. Alanis Kay in his ICU room this morning. No events have been reported overnight. The vitals look relatively stable. There is no fever recorded. On examination, he has a corneal reflex on both sides. He has pinpoint pupils. He does not have a doll's eyes. He does gag. He breathes over the ventilator. To painful stimulus today, he has extensor posturing. Mr. Alanis Kay had a very tiny improvement in his neurological examination, but he is still deeply affected by this pontine hemorrhage. He has extensor posturing, which he did have before. The ring needs to be removed from his left hand before the finger and skin become necrotic. We will continue to follow the case. A followup CT scan of the brain can be done today and tomorrow. (15min) Job ID: [id number] MTDD
--- NOTE | 2019-12-14 08:52 | RAD ---
CHEST 1 VIEW: INDICATION: History of pneumonia. COMPARISON: Prior exam dated 12/12/2019. FINDINGS: There is worsening airspace disease bilaterally, particularly in the right upper lobe, right lower lo be and left lower lobe suspicious for worsening pneumonia. Tracheostomy tube is in place. There is a feeding tube in place. There is a feeding tube in place. No pneumothorax is evident. IMPRESSION: 1. Worsening bilateral pneumonia. 2. Interval placement of a tracheostomy tube and feeding tube. POS: [place]
--- NOTE | 2019-12-14 09:10 | CT ---
CT HEAD WITHOUT IV CONTRAST COMPARISON: 12/13/2019 and 12/12/2019 HISTORY: Follow-up pontine hemorrhage. TECHNIQUE: Axial CT imaging at 5 mm intervals from vertex through skull base without contrast FINDINGS: Again noted is area of increased density seen in the posterior aspect of the christopher compatible with hem orrhage with associated adjacent edema. Hemorrhage has not significantly changed when compared to prior exams. Again there does appear to be slight mass effect on the fourth ventricle. No other areas of hemorrhage are seen. No acute cortical infarct infarction is seen. Nasogastric tube remains in place. There is opacification of the ethmoidal air cells with air-fluid l evels in each maxillary antrum and sphenoid sinus and left frontal sinus. Osseous structures appear intact. IMPRESSION: 1. Overall stable pontine hemorrhage with adjacent edema. There is slight mass effect on the fourth v entricle, but this does appear slightly improved from prior study. Continued follow-up is recommended to ensure expected evolutionary changes in pontine hemorrhage.
[2019-12-14] MEDS ORDERED: Vecuronium 10 MG VIAL IVP ONE (09:11)
[2019-12-14] MEDS ORDERED: Vecuronium 10 MG VIAL ONE (09:13)
[2019-12-14] MEDS ORDERED: Furosemide 40 MG/4 ML VIAL SLOW IVP SCH (09:15)
--- NOTE | 2019-12-14 09:36 | PRG ---
DATE OF SERVICE: 12/14/2019 35 minutes of critical care time. SUBJECTIVE: The patient remains intubated on mechanical ventilation. OBJECTIVE: VITAL SINGS: On exam, temperature 99.7, pulse 96, blood pressure 146/85, and O2 saturation 96%. NEUROLOGIC: Vastly improved. He withdraws all 4 extremities. He has a gag reflex. I thought he was almost squeezing my right hand. HEENT: Otherwise, unremarkable. NECK: Trach in good position. LUNGS: Coarse breath sounds. CARDIOVASCULAR: S1 and S2. Regular. ABDOMEN: Obese, soft, and nontender. EXTREMITIES: Edematous. LABORATORY DATA: Sodium 139, potassium 3.3, chloride 109, CO2 of 19, BUN 45, creatinine 2.8, and glucose 118. White blood cell count 19.3, hematocrit 33.1, and platelet count 228. PH 7.46, pCO2 of 34, pO2 of 51, on SIMV rate of 28, tidal volume 500, PEEP 10, pressure support 10, and FiO2 of 100%. He has some tenacious secretions coming out of his tracheostomy tube. His x-ray shows bilateral infiltrates. Head CT shows pontine hemorrhage. ASSESSMENT: 1. Acute respiratory failure requiring mechanical ventilation. 2. Pontine brain hemorrhage. 3. Fluid overload. 4. Morbid obesity. PLAN: 1. Bronchoscopy to clear out secretions in hopes of improving his oxygenation. 2. Send fluid for culture. 3. Continue antibiotics dose diuretics. 4. Paralyze for bronchoscopy such as not to aggravate coughing and cause worsening of his brain hemorrhage. 5. Initiate tube feeds. 6. Replace potassium. Job ID: [id number]
--- NOTE | 2019-12-14 09:54 | EEG ---
DATE OF SERVICE: 12/13/2019 ATTENDING PHYSICIAN: Tavia Jones MD This EEG was performed using 24-channel [employer] video digital EEG machine with 24-disk electrodes. This was a routine EEG recording. Digital analysis of the EEG was done for spike and seizure detection which revealed no abnormalities. BACKGROUND: The posterior background rhythm was not observed. HYPERVENTILATION: Not performed. PHOTIC STIMULATION: No significant response seen with photic stimulation. SLEEP: No stage change was observed. EEG DIAGNOSES: 1. Generalized irregular theta activity with superimposed beta. 2. Absence of posterior background rhythm. CLINICAL INTERPRETATION: This EEG is consistent with moderate generalized nonspecific cerebral dysfunction. Job ID: [id number]
--- NOTE | 2019-12-14 10:02 | OP ---
DATE OF PROCEDURE: 12/14/2019 PROCEDURE PERFORMED: Bronchoscopy. PREOPERATIVE DIAGNOSIS: Copious secretions. POSTOPERATIVE DIAGNOSIS: Copious secretions. ANESTHESIA: The patient was given Norcuron 10 mg IV one. DESCRIPTION OF PROCEDURE: The patient was on 100% oxygen through the ventilator. A 2.2 Ambu bronchoscope was placed down his tracheostomy through an adapter. The patient had purulent secretions in all lobes of both lungs. These were lavaged with saline and aspirated. The color was chocolate brown. He tolerated the procedure well except for some transient hypoxemia. Job ID: [id number]
[2019-12-14] MEDS: Pantoprazole 40 MG VIAL IVP SCH (10:03)
--- NOTE | 2019-12-14 14:00 | PDOC.PALCO ---
Palliative Care Consult - Consult Details Requesting Physician: Dr Rodriguez Reason for Consult: goals of care, assistance with communication prognosis/disease Family Members Present: Kristen / Austint sister - Pertinent HPI Mr Thapa is a 34 year old male with a known history of hypertension. He is a straight cutter and was found unresponsive by his father, who activated EMS. Initially he was only responsive to pain, with subsequent jerking and posturing that was suspicious for seizures. Given Ativan that mitigated symptoms, however patient was found to also be hypoxic. Secondary to difficulty maintaining a secure airway cricothyroidotomy was done for mechanical ventilation and brain scan identified intracerebral hemorrhage/pontine hemorrhage. Admitted to CCU for medical management. - Pertinent PMH Hypertension, obesity - Social History Smoking Status: Unknown if ever smoked Drug Use History: none Living Situation: independent - Medications MAR Reviewed: Yes - Allergies Allergies/Adverse Reactions: Allergies Allergy/AdvReac Type Severity Reaction Status Date / Time No Allergy Information Allergy Unverified 12/12/19 10:04 Available - Subjective Mechanical ventilation via trach, off sedation, no purposeful movement. Dr Rodriguez preformed a bronchoscopy this morning secondary to copious secretions. Purulent secretions were removed. - ROS Non Response: due to mental status - Objective Vital Signs: Vital Signs - Most Recent Temp Pulse Resp BP Pulse Ox 100.1 F H 101 H 37 H 121/74 90 L 12/14/19 13:00 12/14/19 10:47 12/14/19 10:00 12/14/19 10:47 12/13/19 20:00 Palliative Performance Scale: 20 - Physical Exam Constitutional: encephalitic, ill appearing HEENT: moist MMs, sclera anicteric Deviation from normal: Pin point, Deviation from normal: Secretions jonas trach, adventicious to left, diminished Cardiovascular: RRR Gastrointestinal: soft, non-tender Deviation from normal: Obese Genitourinary: ling catheter Deviation from normal: No purposeful movement, gag reflex Skin: no lesions, no rash - Problem List (1) Acute renal failure Current Visit: Yes Status: Acute Qualifiers: Acute renal failure type: unspecified Qualified Code(s): N17.9 - Acute kidney failure, unspecified (2) Encephalopathy acute Code(s): G93.40 - ENCEPHALOPATHY, UNSPECIFIED Current Visit: Yes Status: Acute (3) Hypertensive crisis Code(s): I16.9 - HYPERTENSIVE CRISIS, UNSPECIFIED Current Visit: Yes Status: Acute (4) 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 He has a younger brother as well and both parents are living and [place] speaking only. His sister had several questions related to transferring her brother to [place], insurance, prognosis, and his son who is 14 visiting. Also requesting family meeting. Answered above questions, will place case management consult for assistance with insurance and transition as he is private pay. Teaching in relation to Pontine Hemorrhage, locked in state, potential complications secondary to assault on brain and decreased functional state. Reminded patient sister that she and her parents/family are to be the "voice" for Mr Thapa and act on behalf of what he would wish, not their own desires. In the conversation Kristen stated that her brother recently told her that he would never desire to live in a "vegetative state" and would want to "be let go". Attempting to arrange a family meeting for 9 or 10 am Saturday. Communicated with Dr Rodriguez, Dr Webster, Dr Westbrook, and Lindsey Molina PA-C [90] minutes spent on this encounter with >50% of the time in counseling and coordination of care. Thank you for this very appropriate consult.
[2019-12-14] MEDS: Sodium Chloride 0.9% 1,000 ML IV SCH (19:18)
[2019-12-14] MEDS: Morphine 2 MG/ML VIAL SLOW IVP PRN (23:58)
[2019-12-15] MEDS: Labetalol HCl 100 MG/20 ML VIAL SLOW IVP PRN ×3 (00:02→15:05)
[2019-12-15] MEDS: Piperacillin/Tazobactam 2.25 GM in Sodium Chloride 0.9% 100 ML IVPB SCH ×3 (00:26→16:04)
[2019-12-15] MEDS: Lorazepam 2 MG/ML VIAL SLOW IVP PRN ×5 (00:27→19:27)
[2019-12-15] MEDS: Morphine 2 MG/ML VIAL SLOW IVP PRN ×4 (03:49→20:52)
[2019-12-15 04:23] LABS: Anion Gap 17 mmol/L (10-20); BUN (Urea Nitrogen) 52 mg/dL (8.9-20.6); Calc. Creatinine Clearance 92 mL/min (70-130); Calcium 8.2 mg/dL (7.8-10.44); Carbon Dioxide 18 mmol/L (22-29); Chloride 112 mmol/L (98-107); Estimated GFR-MDRD 31; Glucose 127 mg/dL (70-105); Potassium 4.1 mmol/L (3.5-5.1); Sodium 143 mmol/L (136-145)
[2019-12-15 04:47] LABS: Band 9 % (5-11); Hypochromia SLIGHT = 6-15 cells (100X) (0-5/hpf); Lymphocytes 17 % (21-51); MDiff Complete? YES; Mean Corpuscular HGB CONC 32.3 g/dL (32.0-36.0); Mean Corpuscular Hemoglobin 29.9 pg (27.0-31.0); Mean Corpuscular Volume 92.7 fL (78.0-98.0); Mean Platelet Volume 8.5 fL (7.4-10.4); Metamyelocyte 2 % (0-0); Monocytes 3 % (0-10); Neutrophil 69 % (42-75); Platelet Count 223 thou/uL (130-400); Platelet Morphology Comment Appears Adequate; RBC Distribution Width 12.6 % (11.5-14.5); Red Blood Cell (RBC) Count 3.67 mill/uL (4.70-6.10)
[2019-12-15 07:23] LABS: Actual Bicarbonate (HCO3a) 22.9 mEq/L (22-28); Base Excess (BEa) -0.8 mEq/L (-2.0 to +3.0); CO2 Tension 34.7 mmHg (35.0-45.0); Carboxyhemoglobin (COHb) 0.3 gm% (0.0-3.0); Hemoglobin (Hb) 11.7 g/dL (14.0-18.0); Potassium - ABG Lab 3.37 mmol/L (3.70-5.30); pH, Arterial 7.44 (7.35-7.45)
[2019-12-15 07:26] LABS: O2 Tension (PaO2), arterial 58.1 mmHg (80.0-100.0); Puncture Site L.R.
[2019-12-15 07:27] LABS: ALV-art Gradient 611.525 mmHg (0-20)
--- NOTE | 2019-12-15 07:52 | PRG ---
DATE OF SERVICE: 12/15/2019 I saw Mr. Alanis Kay in the ICU this morning. No events have been reported overnight and he has a new CT to review this morning. Highest temperature I see recorded in the last 24 hours is 100.2 degrees Fahrenheit. This fever curve is down from the 12 of December. Blood pressures have been in the 140s to 150s. On examination, there is a corneal reflex. The pupils are pinpoint, but reactive. The doll's eyes are absent, but he does gag and breathe over the ventilator. On extremity examination, he is now extending the arms, but he has some purposeful withdrawal in the lower extremities. Today, CT scan does not show significant hydrocephalus. The clot is the same size as it has been before. Mr. Alanis Kay has made a subtle, but real improvement from the weekend. Sensory information from the legs is making it to the brain and some motor information is returning. The leg reaction is not triple flexion mediated at the level of spinal cord, but more of a purposeful reaction indicating some connection. Undoubtedly, he will have some permanent neurological deficit, but there has been slight improvement since the weekend. There is no surgical intervention that is warranted so far. We will get another CT scan of the brain tomorrow and in the absence of any developing hydrocephalus, we will stop scanning thereafter. We will continue to follow the case. A permanent feeding apparatus and a permanent tracheostomy would be considered if the family wants to continue. If this is a cricothyroidotomy, it is not a permanent solution. We will continue to follow the case. (15 min) Job ID: [id number] MTDD
--- NOTE | 2019-12-15 08:34 | CT ---
PRELIMINARY REPORT/[facility]/EMERGENCY AFTER HOURS PROCEDURE: EXAM: CT Head Without Intravenous Contrast. CLINICAL HISTORY: F/U pontine bleed TECHNIQUE: Axial computed tomography images of the head/brain without intravenous contrast. COMPARISON: December 14, 2019 FINDINGS: BRAIN: Pontine infarct again noted, not significantly changed in size or appearance in the interval. Stable mass-effect on the fourth ventricle and aqueduct. VENTRICLES: No hydrocephalus. IMPRESSION: Stable pontine hemorrhage. ELECTRONICALLY SIGNED BY: Corbin Rodriguez MD Dec 15, 2019 4:49:21 AM CDT This report is intended for review by the ordering physician only, in accordance of law. If you recei ve this report in error, please call [facility] at [phone]. FINAL REPORT CT BRAIN WITHOUT CONTRAST: I agree with the preliminary report given by Dr. Corbin Rodriguez [facility]. POS: OFF
--- NOTE | 2019-12-15 08:48 | RAD ---
PORTABLE CHEST: HISTORY: Pneumonia followup. COMPARISON: 12/14/2019. FINDINGS: There are bilateral confluent infiltrates. Right upper lobe and right lower lobe infiltrates with le ft mid and lower lung field infiltrates. Tracheostomy device. IMPRESSION: Bilateral infiltrates without evidence of significant change. POS: AGW
[2019-12-15] MEDS ORDERED: Furosemide 40 MG/4 ML VIAL SLOW IVP SCH (09:30)
[2019-12-15] MEDS: Pantoprazole 40 MG VIAL IVP SCH (09:36)
[2019-12-15] MEDS ORDERED: Furosemide 40 MG/4 ML VIAL ONE (09:41)
--- NOTE | 2019-12-15 09:45 | PRG ---
DATE OF SERVICE: 12/15/2019 35 minutes of critical care time. SUBJECTIVE: The patient remains intubated, on mechanical ventilation. PHYSICAL EXAMINATION: VITAL SIGNS: His pulse is 90; blood pressure 144/93; O2 saturation 99%; respiratory rate 31; temperature 100.1, it has been as high as 100.2. HEENT: Unchanged. NECK: Trach in place. LUNGS: Coarse breath sounds. CARDIAC: S1, S2. Regular. ABDOMEN: Soft and nontender. EXTREMITIES: Edematous. LABORATORY DATA: White blood cell count 16, hematocrit 34, and platelet count 223. PH 7.44, pCO2 of 34, pO2 of 58 on SIMV rate 28, tidal volume 500, PEEP 13, pressure support 10, and FiO2 of 100%. Sodium 143, potassium 4.1, chloride 112, CO2 of 18, BUN 52, creatinine 2.4, and glucose 127. His x-ray shows bilateral pulmonary congestion, right greater than left; bilateral pleural effusions. Head CT is unchanged. ASSESSMENT: 1. Acute respiratory failure, requiring mechanical ventilation. 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 3. Fluid overload. 4. Morbid obesity. PLAN: I will try to diurese the patient again. He is continued on antibiotics for aspiration coverage. He is not weanable from mechanical ventilation and probably never will be. When he becomes more stable and a feeding tube needs to be placed with continued care. His long-term prognosis is dismal. Job ID: [id number]
[2019-12-15] MEDS: Acetaminophen 325 MG TAB PO PRN ×3 (09:48→21:59)
--- NOTE | 2019-12-15 09:50 | PDOC.HOSPP ---
- Subjective Encounter Date: 12/15/19 Encounter Time: 09:38 Subjective: intubated, mech ventilation, unresponsive - Objective Vital Signs & Weight: Vital Signs (12 hours) Temp Pulse Resp BP 12/15/19 07:08 86 140/92 H 12/15/19 05:59 28 H 12/15/19 04:00 28 H 12/15/19 03:36 92 155/92 H 12/15/19 03:00 100.1 F H 12/15/19 02:32 82 152/99 H 12/15/19 02:00 28 H 12/15/19 00:02 98 170/95 H 12/15/19 00:00 100.2 F H 36 H 12/14/19 22:00 28 H 12/14/19 21:58 81 149/87 H Weight Admit Weight 328 lb Weight 319 lb 10.724 oz Most Recent Monitor Data Heart Rate from ECG 86 NIBP 150/91 NIBP BP-Mean 110 Respiration from ECG 29 SpO2 96 I&O: 12/14/19 12/15/19 12/16/19 06:59 06:59 06:59 Intake Total 3278 1941 Output Total 1440 2240 Balance 1838 -299 Result Diagrams: 12/15/19 03:55 12/15/19 03:55 Radiology Reviewed by me: Yes (cxr- trach, bilat infiltrates) Hospitalist ROS - Medication Medications: Active Medications Generic Name Dose Route Start Last Admin Trade Name Freq PRN Reason Stop Dose Admin Acetaminophen 650 mg 12/12/19 12:15 12/13/19 21:53 Acetaminophen 325 Mg Tab PO 650 mg Q6H PRN Administration Fever > 101 or Headache Levetiracetam 500 mg/ Device 100 mls @ 200 mls/hr 12/12/19 21:00 12/14/19 20:27 IVPB 100 mls BID CHRIS Administration Fentanyl Citrate 2,000 mcg/ 100 mls @ 0 mls/hr 12/12/19 14:15 12/12/19 21:30 Sodium Chloride IV 01/11/20 14:15 100 mls INF CHRIS Administration Protocol Per Protocol Nicardipine HCl 50 mg/ Sodium 250 mls @ 0 mls/hr 12/12/19 20:46 12/14/19 10:45 Chloride IVPB 250 mls INF PRN Administration SBP > 140 Protocol Titrate Piperacillin Sod/Tazobactam 100 mls @ 200 mls/hr 12/13/19 09:00 12/15/19 00:26 Sod 2.25 gm/ Sodium Chloride IVPB 100 mls 0100,0900,1700 CHRIS Administration Labetalol HCl 10 mg 12/12/19 12:15 12/15/19 03:36 Labetalol Hcl 100 Mg/20 Ml Vial SLOW IVP 10 mg Q2H PRN Administration SBP > 140 Lorazepam 2 mg 12/12/19 14:15 12/15/19 04:32 Lorazepam 2 Mg/Ml Vial SLOW IVP 01/11/20 14:15 2 mg Q1H PRN Administration Breakthrough agitation Morphine Sulfate 2 mg 12/12/19 14:15 12/15/19 03:49 Morphine 2 Mg/Ml Vial SLOW IVP 01/11/20 14:15 2 mg Q1H PRN Administration Breakthrough Pain/Agitation Pantoprazole Sodium 40 mg 12/13/19 09:00 12/14/19 10:03 Pantoprazole 40 Mg Vial IVP 40 mg DAILY CHRIS Administration Propofol 1,000 mg 12/12/19 14:15 12/13/19 06:38 Propofol 1,000 Mg/100 Ml Vial IV 01/11/20 14:15 1,000 mg INF PRN Administration TO ACHIEVE GOAL RASS Protocol - Exam Neck: no JVD Heart: RRR, no murmur Respiratory: CTAB Gastrointestinal: soft, non-tender Extremities: 1+ LE edema Neurological - other findings: posturing, pinpoint pupils, non-focal reflex exam Hosp A/P (1) Encephalopathy acute Code(s): G93.40 - ENCEPHALOPATHY, UNSPECIFIED Status: Acute (2) Hypertensive crisis Code(s): I16.9 - HYPERTENSIVE CRISIS, UNSPECIFIED Status: Acute (3) Acute respiratory failure with hypoxemia Code(s): J96.01 - ACUTE RESPIRATORY FAILURE WITH HYPOXIA Status: Acute (4) Acute renal failure Status: Acute Qualifiers: Acute renal failure type: unspecified Qualified Code(s): N17.9 - Acute kidney failure, unspecified (5) Pontine hemorrhage Code(s): I61.3 - NONTRAUMATIC INTRACEREBRAL HEMORRHAGE IN BRAIN STEM Status: Acute (6) Aspiration pneumonia Code(s): J69.0 - PNEUMONITIS DUE TO INHALATION OF FOOD AND VOMIT Status: Acute - Plan post emergent tracheostomy resp failure requiring mech ventilation cont iv antibx cont iv seizure meds on iv cardene monitor renal fcn, etc discuss with political theory professor
--- NOTE | 2019-12-15 11:57 | EEG ---
DATE OF SERVICE: 12/15/2019 ATTENDING: Tavia Jones MD This EEG was performed using 24-channel Vhoto video digital EEG machine with 24 disk electrodes. This was an extended 2 hours 4 minutes of inpatient video EEG recording. Digital analysis of the EEG was done for spike and seizure detection, which revealed no abnormalities. BACKGROUND: The posterior background rhythm was not observed. HYPERVENTILATION: Not performed. PHOTIC STIMULATION: No significant response seen with photic stimulation. SLEEP: No stage change was observed. EEG DIAGNOSES: 1. Generalized irregular delta theta activity seen throughout the recording. 2. Absence of posterior background rhythm. CLINICAL INTERPRETATION: This EEG is consistent with moderate generalized nonspecific cerebral dysfunction. Job ID: [id number]
--- NOTE | 2019-12-15 12:18 | PDOC.NEUPN ---
- Subjective Encounter Date: 12/15/19 Subjective: Patient continues to be unresponsive. Follow up EEG negative for seizure activity. - Objective Vital Signs & Weight: Vital Signs (12 hours) Temp Pulse Resp BP 12/15/19 11:26 95 12/15/19 07:08 86 140/92 H 12/15/19 05:59 28 H 12/15/19 04:00 28 H 12/15/19 03:36 92 155/92 H 12/15/19 03:00 100.1 F H 12/15/19 02:32 82 152/99 H 12/15/19 02:00 28 H Weight Admit Weight 328 lb Weight 319 lb 10.724 oz Most Recent Monitor Data Heart Rate from ECG 86 NIBP 150/91 NIBP BP-Mean 110 Respiration from ECG 29 SpO2 96 I&O: 12/14/19 12/15/19 12/16/19 06:59 06:59 06:59 Intake Total 3278 1941 Output Total 1440 2240 Balance 1838 -299 Result Diagrams: 12/15/19 03:55 12/15/19 03:55 Radiology Reviewed by me: Yes EKG Reviewed by me: Yes ROS - Review of Systems ROS unobtainable: due to mental status - Medication Medications: Active Medications Generic Name Dose Route Start Last Admin Trade Name Freq PRN Reason Stop Dose Admin Acetaminophen 650 mg 12/12/19 12:15 12/15/19 09:48 Acetaminophen 325 Mg Tab PO 650 mg Q6H PRN Administration Fever > 101 or Headache Levetiracetam 500 mg/ Device 100 mls @ 200 mls/hr 12/12/19 21:00 12/15/19 09:35 IVPB 100 mls BID CHRIS Administration Fentanyl Citrate 2,000 mcg/ 100 mls @ 0 mls/hr 12/12/19 14:15 12/12/19 21:30 Sodium Chloride IV 01/11/20 14:15 100 mls INF CHRIS Administration Protocol Per Protocol Nicardipine HCl 50 mg/ Sodium 250 mls @ 0 mls/hr 12/12/19 20:46 12/14/19 10:45 Chloride IVPB 250 mls INF PRN Administration SBP > 140 Protocol Titrate Piperacillin Sod/Tazobactam 100 mls @ 200 mls/hr 12/13/19 09:00 10/06/20 09:36 Sod 2.25 gm/ Sodium Chloride IVPB 100 mls 0100,0900,1700 CHRIS Administration Labetalol HCl 10 mg 12/12/19 12:15 12/15/19 03:36 Labetalol Hcl 100 Mg/20 Ml Vial SLOW IVP 10 mg Q2H PRN Administration SBP > 140 Lorazepam 2 mg 12/12/19 14:15 12/15/19 04:32 Lorazepam 2 Mg/Ml Vial SLOW IVP 01/11/20 14:15 2 mg Q1H PRN Administration Breakthrough agitation Morphine Sulfate 2 mg 12/12/19 14:15 12/15/19 09:46 Morphine 2 Mg/Ml Vial SLOW IVP 01/11/20 14:15 2 mg Q1H PRN Administration Breakthrough Pain/Agitation Pantoprazole Sodium 40 mg 12/13/19 09:00 12/15/19 09:36 Pantoprazole 40 Mg Vial IVP 40 mg DAILY CHRIS Administration Propofol 1,000 mg 12/12/19 14:15 12/13/19 06:38 Propofol 1,000 Mg/100 Ml Vial IV 01/11/20 14:15 1,000 mg INF PRN Administration TO ACHIEVE GOAL RASS Protocol - Exam General Appearance: NAD Eye - other findings: pupils pinpoint sluggishly reactive, corneals positive ENT - other findings: gag and cough positive Neck: supple Respiratory: CTAB Cardiovascular: RRR Gastrointestinal: soft, non-tender Extremities: no cyanosis, no clubbing Skin: normal turgor Neurological - other findings: Withdraws all 4 extremities to nailbed pressure Musculoskeletal: normal tone, no muscle wasting PSYCH: not oriented Results - Labs Result Diagrams: 12/15/19 03:55 12/15/19 03:55 Lab results: WBC 16.0 thou/uL (4.8-10.8) H 12/15/19 03:55 Hgb 11.0 g/dL (14.0-18.0) L 12/15/19 03:55 Hct 34.1 % (42.0-52.0) L 12/15/19 03:55 MCV 92.7 fL (78.0-98.0) 12/15/19 03:55 Plt Count 223 thou/uL (130-400) 12/15/19 03:55 Neutrophils % 85.4 % (42.0-75.0) H 12/12/19 09:49 Band Neuts % (Manual) 9 % (5-11) 12/15/19 03:55 ABG pH 7.44 (7.35-7.45) 12/15/19 07:15 ABG pCO2 34.7 mmHg (35.0-45.0) L 12/15/19 07:15 ABG pO2 58.1 mmHg (80.0-100.0) L* 12/15/19 07:15 Sodium 143 mmol/L (136-145) 12/15/19 03:55 Potassium 4.1 mmol/L (3.5-5.1) 12/15/19 03:55 Chloride 112 mmol/L (98-107) H 12/15/19 03:55 Carbon Dioxide 18 mmol/L (22-29) L 12/15/19 03:55 BUN 52 mg/dL (8.9-20.6) H 12/15/19 03:55 Creatinine 2.40 mg/dL (0.7-1.3) H 12/15/19 03:55 Glucose 127 mg/dL (70-105) H 12/15/19 03:55 Calcium 8.2 mg/dL (7.8-10.44) 12/15/19 03:55 Total Bilirubin 0.6 mg/dL (0.2-1.2) 12/12/19 09:49 AST 36 U/L (5-34) H 12/12/19 09:49 ALT 56 U/L (8-55) H 12/12/19 09:49 Alkaline Phosphatase 82 U/L (40-110) 12/12/19 09:49 Creatine Kinase 294 U/L (30-200) H 12/12/19 09:49 CK-MB (CK-2) 3.1 ng/mL (0-6.6) 12/12/19 09:49 Troponin I 0.038 ng/mL (< 0.028) H 12/12/19 09:49 Serum Total Protein 8.3 g/dL (6.0-8.3) 12/12/19 09:49 Albumin 4.1 g/dL (3.5-5.0) 12/12/19 09:49 Urine Ketones Trace mg/dL (Negative) A 12/12/19 10:04 Urine Blood 1+ (Negative) A 12/12/19 10:04 Urine Nitrite Negative (Negative) 12/12/19 10:04 Ur Leukocyte Esterase Negative Shahram/uL (Negative) 12/12/19 10:04 Urine RBC 4-6 HPF (0-3) A 12/12/19 10:04 Urine WBC 4-6 HPF (0-3) A 12/12/19 10:04 Ur Squamous Epith Cells 0-3 HPF (0-3) 12/12/19 10:04 Urine Bacteria None Seen HPF (None Seen) 12/12/19 10:04 - Radiology Interpretation CT scan - head Status: image reviewed by me, report reviewed by me Additional Comment: stable pontine hemorrhage PN A/P (1) Locked in syndrome Code(s): G83.5 - LOCKED-IN STATE Status: Acute (2) Pontine hemorrhage Code(s): I61.3 - NONTRAUMATIC INTRACEREBRAL HEMORRHAGE IN BRAIN STEM Status: Acute (3) AMS (altered mental status) Code(s): R41.82 - ALTERED MENTAL STATUS, UNSPECIFIED Status: Acute (4) Seizure Code(s): R56.9 - UNSPECIFIED CONVULSIONS Status: Acute - Plan Daily Plan: DVT proph w/SCDs Consults: Palliative Care 34 year old presented with altered mental status and seizure activity. No se izures since admission. Follow up EEG today reviewed which showed slow brain wave activity without any evidence of seizures or cortical irritabilty He has brainstem reflexes now . Pupils 2 mm sluggishly reactive, corneals, gag and cough positive, Partially preserved long tract signs. No spontaneous movements of all 4 extremities but withdrawal elicited on nailbed pressure. Babinski positive bi laterally. Per nuring staff, he is breathing over vent. Minimal neurological improvement will unfortunately will not improve nursing home prognosis. 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 He can remain in persistent vegetative state Continue Keppra 500 mg IV Q12 for seizute prophylaxis. Ativan 2 mg IV for seizure greater than 2 minutes. Neurochecks every 2 hours. Observe seizure precautions. Strict control of BP and BG. Avoid antiplatelets and anticoagulants due to further risk of bleed. Continue medical management per neurosurgery, medicine and pulmonology. Palliative care team on board. Plan discussed with the nursing staff
--- NOTE | 2019-12-15 15:08 | PDOC.PALPN ---
Palliative Progress Note - Subjective Mechanical ventilation via trach. Not sedated - Objective Vital Signs: Vital Signs - Most Recent Temp Pulse Resp BP Pulse Ox 101.2 F H 96 36 H 158/108 H 92 L 12/15/19 11:00 12/15/19 14:38 12/15/19 12:00 12/15/19 14:38 12/14/19 20:00 - Physical Exam Constitutional: NAD, ill appearing HEENT: moist MMs Deviation from normal: Pin point pupils Deviation from normal: trach, dimished to bases, mildly coarse to upper Cardiovascular: RRR Gastrointestinal: soft Deviation from normal: Obese Genitourinary: ling catheter Musculoskeletal: edema present Deviation from normal: No purposeful movement Skin: cap refill <2 seconds Deviation from normal: non responsive - Assessment (1) Acute renal failure Current Visit: Yes Status: Acute Qualifiers: Acute renal failure type: unspecified Qualified Code(s): N17.9 - Acute kidney failure, unspecified (2) Encephalopathy acute Code(s): G93.40 - ENCEPHALOPATHY, UNSPECIFIED Current Visit: Yes Status: Acute (3) Hypertensive crisis Code(s): I16.9 - HYPERTENSIVE CRISIS, UNSPECIFIED Current Visit: Yes Status: Acute (4) Locked in syndrome Code(s): G83.5 - LOCKED-IN STATE Current Visit: Yes Status: Acute (5) Pontine hemorrhage Code(s): I61.3 - NONTRAUMATIC INTRACEREBRAL HEMORRHAGE IN BRAIN STEM Current Visit: Yes Status: Acute - Plan Plan: No seizure activity. Continues with intermittent fever. Continue to discuss with patient sister Kristen who communicates to her parents poor meaningful recovery. Family meeting arranged 12/16/2019 at 10 am to discuss Goal of Care/Permanent trach, PEG [30] minutes spent on this encounter with >50% of the time in counseling and coordination of care. - ROS Non Response: due to endotracheal tube, due to mental status
[2019-12-15] MEDS: niCARdipine 50 MG in Sodium Chloride 0.9% 250 ML 230 ML IVPB PRN ×2 (16:03→21:59)
[2019-12-15] MEDS: Propofol 1,000 MG/100 ML VIAL IV PRN (19:27)
[2019-12-16] MEDS: Piperacillin/Tazobactam 2.25 GM in Sodium Chloride 0.9% 100 ML IVPB SCH ×4 (00:28→20:45)
[2019-12-16] MEDS: Morphine 2 MG/ML VIAL SLOW IVP PRN ×6 (02:34→22:05)
[2019-12-16] MEDS: Lorazepam 2 MG/ML VIAL SLOW IVP PRN ×5 (02:35→22:07)
[2019-12-16] MEDS: Acetaminophen 325 MG TAB PO PRN ×2 (03:39→08:56)
[2019-12-16 04:12] LABS: ALT (SGPT) 37 U/L (8-55); AST (SGOT) 36 U/L (5-34); Alkaline Phosphatase 56 U/L (40-110); Anion Gap 18 mmol/L (10-20); BUN (Urea Nitrogen) 54 mg/dL (8.9-20.6); Bilirubin, Total 0.8 mg/dL (0.2-1.2); Calc. Creatinine Clearance 100 mL/min (70-130); Calcium 8.1 mg/dL (7.8-10.44); Carbon Dioxide 20 mmol/L (22-29); Chloride 113 mmol/L (98-107); Estimated GFR-MDRD 36; Globulin 3.9 g/dL (2.4-3.5); Glucose 121 mg/dL (70-105); Potassium 3.6 mmol/L (3.5-5.1); Protein, Total 6.9 g/dL (6.0-8.3); Sodium 147 mmol/L (136-145)
[2019-12-16 04:22] LABS: Base Excess (BEa) -1.2 mEq/L (-2.0 to +3.0); Calcium, Ionized (arterial) 1.08 mmol/L (1.12-1.30); Carboxyhemoglobin (COHb) 0.2 gm% (0.0-3.0); Hemoglobin (Hb) 11.9 g/dL (14.0-18.0); O2 Tension (PaO2), arterial 48.9 mmHg (80.0-100.0); Potassium - ABG Lab 3.51 mmol/L (3.70-5.30); pH, Arterial 7.37 (7.35-7.45)
[2019-12-16 04:23] LABS: Puncture Site RRA
[2019-12-16] MEDS: Vancomycin 1 GM in Premix Bag 1 BAG IVPB SCH ×2 (04:55→17:30)
[2019-12-16] MEDS ORDERED: Furosemide 40 MG/4 ML VIAL SLOW IVP SCH ×2 (05:00→12:00)
[2019-12-16 05:05] LABS: Band 22 % (5-11); Eosinophils 2 % (0-10); Hemoglobin 11.4 g/dL (14.0-18.0); Lymphocytes 20 % (21-51); MDiff Complete? YES; Mean Corpuscular HGB CONC 31.7 g/dL (32.0-36.0); Mean Corpuscular Volume 94.6 fL (78.0-98.0); Mean Platelet Volume 8.8 fL (7.4-10.4); Monocytes 6 % (0-10); Neutrophil 50 % (42-75); Platelet Count 240 thou/uL (130-400); Platelet Morphology Comment Appears Adequate; Red Blood Cell (RBC) Count 3.81 mill/uL (4.70-6.10); White Blood Cell (WBC) Count 17.2 thou/uL (4.8-10.8)
[2019-12-16] MEDS: niCARdipine 50 MG in Sodium Chloride 0.9% 250 ML 230 ML IVPB PRN (05:21)
[2019-12-16] MEDS: Propofol 1,000 MG/100 ML VIAL IV PRN ×7 (06:08→23:22)
--- NOTE | 2019-12-16 08:14 | RAD ---
PORTABLE CHEST: HISTORY: Pneumonia and CCU followup. COMPARISON: 12/15/2019. FINDINGS: There are bilateral fluffy infiltrates in the right mid and lower lung and patchy infiltrates in the left mid and lower lung. Tracheostomy device. IMPRESSION: No significant interval change. POS: AGW
--- NOTE | 2019-12-16 08:32 | PRG ---
DATE OF SERVICE: 12/16/2019 Neurosurgery progress note I saw Mr. Alanis Kay in the ICU this morning. He is back on propofol. Cultures yesterday from sputum grew out both Gram-positive and Gram-negative organisms. The vitals have been relatively stable with ventilatory support and on propofol. The neurological examination is blunted by propofol. Palliative care meeting with the family will be arranged for today. Yesterday, Mr. Alanis Kay had slight improvement with some purposeful motion in the lower extremities. Undoubtedly, he will have some portion of a disconnection syndrome where he is conscious, but unable to control his body as well as he would want to. If the family wants to press forward and see what improvement can be had, a permanent tracheostomy and gastrostomy will need to be placed and then ought to be in the care home for some time. Job ID: [id number]
--- NOTE | 2019-12-16 08:49 | PRG ---
DATE OF SERVICE: 12/16/2019 35 minutes of critical care time. SUBJECTIVE: The patient remains on mechanical ventilation, hypoxic. OBJECTIVE: VITAL SIGNS: His temperature is 101.5 with a T-max of 102, pulse 99, blood pressure 126/84, O2 saturation 96% on pressure control ventilation. Total intake for 24 hours 2366, output 2560. HEENT: Pupils are 2 mm, unreactive. Oropharynx clear. NECK: Trach in good position. Did not have a gag on suctioning today. CARDIAC: S1 and S2, regular. LUNGS: Diminished breath sounds throughout bilaterally. ABDOMEN: Obese, soft. EXTREMITIES: I cannot get him to withdrawal today. LABORATORY DATA: Sodium 147, potassium 3.6, chloride 113, CO2 of 20, BUN 54, creatinine 2.1, and glucose 121. White blood cell count 17.2, hematocrit 36, platelet count 240 with 50 neutrophils, 22% bands. PH of 7.37, pCO2 of 42, pO2 of 48 on SIMV rate 28, tidal volume 500, PEEP 13, pressure support 10, and FiO2 of 100%. His x-ray showed diffuse bilateral infiltrates, right greater than left. His previous bronch has grown out staph and E coli. The Staph did not have a sensitivity to piperacillin/tazobactam. ASSESSMENT: 1. Pneumonia secondary to aspiration. 2. Acute respiratory failure, requiring mechanical ventilation. 3. Pontine hemorrhage with grossly altered mental status and neurologic exam. 4. 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 PLAN: 1. I have added vancomycin to his antibiotic regimen of Zosyn. 2. We have changed him to pressure control ventilation with improvement in his oxygen saturation. 3. I will go ahead and add some steroids to reduce inflammation in his lungs. 4. He was COVID negative at the time of admission, and I have no reason to think that he has developed COVID pneumonia since that time. 5. Prognosis is poor secondary to the brain hemorrhage. 6. I will give an additional dose of diuretics today. Job ID: [id number]
[2019-12-16] MEDS: Pantoprazole 40 MG VIAL IVP SCH (08:56)
--- NOTE | 2019-12-16 09:42 | PDOC.HOSPP ---
- Subjective Encounter Date: 12/16/19 Encounter Time: 09:40 Subjective: intubated, unresponsive - Objective Vital Signs & Weight: Vital Signs (12 hours) Pulse Resp BP 12/16/19 07:11 100 12/16/19 06:00 45 H 12/16/19 04:00 43 H 12/16/19 02:15 97 138/97 H 12/16/19 02:00 39 H 12/16/19 00:00 37 H 12/15/19 22:18 104 H 128/80 12/15/19 22:00 32 H Weight Admit Weight 328 lb Weight 324 lb 1.272 oz Most Recent Monitor Data Heart Rate from ECG 99 NIBP 126/84 NIBP BP-Mean 98 Respiration from ECG 32 SpO2 96 I&O: 12/15/19 12/16/19 12/17/19 06:59 06:59 06:59 Intake Total 1941 2366 Output Total 2240 2560 275 Balance -299 -194 -275 Result Diagrams: 12/16/19 03:18 12/16/19 03:18 Radiology Reviewed by me: Yes (cxr- ET tube adverse R side infiltrate) Hospitalist ROS - Medication Medications: Active Medications Generic Name Dose Route Start Last Admin Trade Name Freq PRN Reason Stop Dose Admin Acetaminophen 650 mg 12/12/19 12:15 12/16/19 08:56 Acetaminophen 325 Mg Tab PO 650 mg Q6H PRN Administration Fever > 101 or Headache Levetiracetam 500 mg/ Device 100 mls @ 200 mls/hr 12/12/19 21:00 12/16/19 08:56 IVPB 100 mls BID CHRIS Administration Fentanyl Citrate 2,000 mcg/ 100 mls @ 0 mls/hr 12/12/19 14:15 12/12/19 21:30 Sodium Chloride IV 01/11/20 14:15 100 mls INF CHRIS Administration Protocol Per Protocol Nicardipine HCl 50 mg/ Sodium 250 mls @ 0 mls/hr 12/12/19 20:46 12/16/19 05:21 Chloride IVPB 250 mls INF PRN Administration SBP > 140 Protocol Titrate Piperacillin Sod/Tazobactam 100 mls @ 200 mls/hr 12/13/19 09:00 12/16/19 08:54 Sod 2.25 gm/ Sodium Chloride IVPB 100 mls 0100,0900,1700 CHRIS Administration Vancomycin HCl 1 gm/ Device 200 mls @ 200 mls/hr 12/16/19 06:00 12/16/19 04:55 IVPB 200 mls 0600,1800 CHRIS Administration Labetalol HCl 10 mg 12/12/19 12:15 12/15/19 15:05 Labetalol Hcl 100 Mg/20 Ml Vial SLOW IVP 10 mg Q2H PRN Administration SBP > 140 Lorazepam 2 mg 12/12/19 14:15 12/16/19 09:40 Lorazepam 2 Mg/Ml Vial SLOW IVP 01/11/20 14:15 2 mg Q1H PRN Administration Breakthrough agitation Morphine Sulfate 2 mg 12/12/19 14:15 12/16/19 05:38 Morphine 2 Mg/Ml Vial SLOW IVP 01/11/20 14:15 2 mg Q1H PRN Administration Breakthrough Pain/Agitation Pantoprazole Sodium 40 mg 12/13/19 09:00 12/16/19 08:56 Pantoprazole 40 Mg Vial IVP 40 mg DAILY CHRIS Administration Propofol 1,000 mg 12/12/19 14:15 12/16/19 06:08 Propofol 1,000 Mg/100 Ml Vial IV 01/11/20 14:15 1,000 mg INF PRN Administration TO ACHIEVE GOAL RASS Protocol Sodium Chloride 10 ml 12/12/19 12:15 12/16/19 08:57 Flush - Normal Saline 10 Ml Syringe IVF 10 ml PRN PRN Administration Saline Flush - Exam Neck: no JVD Heart: RRR, no murmur Respiratory - other findings: coarse BS with diffuse rhonchi Gastrointestinal: soft, non-tender, normal bowel sounds Extremities: 1+ LE edema Hosp A/P (1) Encephalopathy acute Code(s): G93.40 - ENCEPHALOPATHY, UNSPECIFIED Status: Acute (2) Hypertensive crisis Code(s): I16.9 - HYPERTENSIVE CRISIS, UNSPECIFIED Status: Acute (3) Acute respiratory failure with hypoxemia Code(s): J96.01 - ACUTE RESPIRATORY FAILURE WITH HYPOXIA Status: Acute (4) Acute renal failure Status: Acute Qualifiers: Acute renal failure type: unspecified Qualified Code(s): N17.9 - Acute kidney failure, unspecified (5) Pontine hemorrhage Code(s): I61.3 - NONTRAUMATIC INTRACEREBRAL HEMORRHAGE IN BRAIN STEM Status: Acute (6) Aspiration pneumonia Code(s): J69.0 - PNEUMONITIS DUE TO INHALATION OF FOOD AND VOMIT Status: Acute - Plan post emergent tracheostomy resp failure requiring mech ventilation cont iv antibx cont iv seizure meds on iv cardene monitor renal fcn, requing cooling blanket for 1o2 temp hyperventilates without sedation prognosis guarded discuss with material attendant
[2019-12-16] MEDS: methylPREDNISolone Sod Succ 40 MG VIAL IVP SCH ×3 (12:26→23:12)
--- NOTE | 2019-12-16 14:04 | PDOC.NEUPN ---
- Subjective Encounter Date: 12/16/19 Subjective: Patient continues to be sedated and on mechanical ventilation - Objective Vital Signs & Weight: Vital Signs (12 hours) Pulse Resp BP 12/16/19 10:31 93 117/76 12/16/19 07:11 100 12/16/19 06:00 45 H 12/16/19 04:00 43 H 12/16/19 02:15 97 138/97 H Weight Admit Weight 328 lb Weight 324 lb 1.272 oz Most Recent Monitor Data Heart Rate from ECG 87 NIBP 109/71 NIBP BP-Mean 83 Respiration from ECG 28 SpO2 93 I&O: 12/15/19 12/16/19 12/17/19 06:59 06:59 06:59 Intake Total 1941 2366 90 Output Total 7560 2564 790 Balance -082 -096 -664 Result Diagrams: 12/16/19 03:18 12/16/19 03:18 Radiology Reviewed by me: Yes EKG Reviewed by me: Yes ROS - Review of Systems ROS unobtainable: due to mental status (Intubated and sedated) - Medication Medications: Active Medications Generic Name Dose Route Start Last Admin Trade Name Freq PRN Reason Stop Dose Admin Acetaminophen 650 mg 12/12/19 12:15 12/16/19 08:56 Acetaminophen 325 Mg Tab PO 650 mg Q6H PRN Administration Fever > 101 or Headache Levetiracetam 500 mg/ Device 100 mls @ 200 mls/hr 12/12/19 21:00 12/16/19 08:56 IVPB 100 mls BID CHRIS Administration Fentanyl Citrate 2,000 mcg/ 100 mls @ 0 mls/hr 12/12/19 14:15 12/12/19 21:30 Sodium Chloride IV 01/11/20 14:15 100 mls INF CHRIS Administration Protocol Per Protocol Nicardipine HCl 50 mg/ Sodium 250 mls @ 0 mls/hr 12/12/19 20:46 12/16/19 05:21 Chloride IVPB 250 mls INF PRN Administration SBP > 140 Protocol Titrate Piperacillin Sod/Tazobactam 100 mls @ 200 mls/hr 12/13/19 09:00 12/16/19 08:54 Sod 2.25 gm/ Sodium Chloride IVPB 100 mls 0100,0900,1700 CHRIS Administration Vancomycin HCl 1 gm/ Device 200 mls @ 200 mls/hr 12/16/19 06:00 12/16/19 04:55 IVPB 200 mls 0600,1800 CHRIS Administration Labetalol HCl 10 mg 12/12/19 12:15 12/15/19 15:05 Labetalol Hcl 100 Mg/20 Ml Vial SLOW IVP 10 mg Q2H PRN Administration SBP > 140 Lorazepam 2 mg 12/12/19 14:15 12/16/19 13:28 Lorazepam 2 Mg/Ml Vial SLOW IVP 01/11/20 14:15 2 mg Q1H PRN Administration Breakthrough agitation Methylprednisolone Sodium Succinate 40 mg 12/16/19 12:00 12/16/19 12:26 Methylprednisolone Sod Succ 40 Mg Vial IVP 40 mg Q6HR CHRIS Administration Morphine Sulfate 2 mg 12/12/19 14:15 12/16/19 13:27 Morphine 2 Mg/Ml Vial SLOW IVP 01/11/20 14:15 2 mg Q1H PRN Administration Breakthrough Pain/Agitation Pantoprazole Sodium 40 mg 12/13/19 09:00 12/16/19 08:56 Pantoprazole 40 Mg Vial IVP 40 mg DAILY CHRIS Administration Propofol 1,000 mg 12/12/19 14:15 12/16/19 13:54 Propofol 1,000 Mg/100 Ml Vial IV 01/11/20 14:15 1,000 mg INF PRN Administration TO ACHIEVE GOAL RASS Protocol Sodium Chloride 10 ml 12/12/19 12:15 12/16/19 08:57 Flush - Normal Saline 10 Ml Syringe IVF 10 ml PRN PRN Administration Saline Flush - Exam General Appearance: NAD, ill appearing Eye - other findings: Pupils pinpoint 2 mm ENT: normocephalic atraumatic Neck: supple Respiratory: CTAB Cardiovascular: RRR Gastrointestinal: soft Skin: normal turgor, no lesions Neurological: no new deficit Musculoskeletal: no muscle wasting PSYCH: not oriented Results - Labs Result Diagrams: 12/16/19 03:18 12/16/19 03:18 Lab results: WBC 17.2 thou/uL (4.8-10.8) H 12/16/19 03:18 Hgb 11.4 g/dL (14.0-18.0) L 12/16/19 03:18 Hct 36.0 % (42.0-52.0) L 12/16/19 03:18 MCV 94.6 fL (78.0-98.0) 12/16/19 03:18 Plt Count 240 thou/uL (130-400) 12/16/19 03:18 Neutrophils % 85.4 % (42.0-75.0) H 12/12/19 09:49 Band Neuts % (Manual) 22 % (5-11) H 12/16/19 03:18 ABG pH 7.37 (7.35-7.45) 12/16/19 04:16 ABG pCO2 42.0 mmHg (35.0-45.0) 12/16/19 04:16 ABG pO2 48.9 mmHg (80.0-100.0) L* 12/16/19 04:16 Sodium 147 mmol/L (136-145) H 12/16/19 03:18 Potassium 3.6 mmol/L (3.5-5.1) 12/16/19 03:18 Chloride 113 mmol/L (98-107) H 12/16/19 03:18 Carbon Dioxide 20 mmol/L (22-29) L 12/16/19 03:18 BUN 54 mg/dL (8.9-20.6) H 12/16/19 03:18 Creatinine 2.15 mg/dL (0.7-1.3) H 12/16/19 03:18 Glucose 121 mg/dL (70-105) H 12/16/19 03:18 Calcium 8.1 mg/dL (7.8-10.44) 12/16/19 03:18 Total Bilirubin 0.8 mg/dL (0.2-1.2) 12/16/19 03:18 AST 36 U/L (5-34) H 12/16/19 03:18 ALT 37 U/L (8-55) 12/16/19 03:18 Alkaline Phosphatase 56 U/L (40-110) 12/16/19 03:18 Creatine Kinase 294 U/L (30-200) H 12/12/19 09:49 CK-MB (CK-2) 3.1 ng/mL (0-6.6) 12/12/19 09:49 Troponin I 0.038 ng/mL (< 0.028) H 12/12/19 09:49 Serum Total Protein 6.9 g/dL (6.0-8.3) 12/16/19 03:18 Albumin 3.0 g/dL (3.5-5.0) L 12/16/19 03:18 Urine Ketones Trace mg/dL (Negative) A 12/12/19 10:04 Urine Blood 1+ (Negative) A 12/12/19 10:04 Urine Nitrite Negative (Negative) 12/12/19 10:04 Ur Leukocyte Esterase Negative Shahram/uL (Negative) 12/12/19 10:04 Urine RBC 4-6 HPF (0-3) A 12/12/19 10:04 Urine WBC 4-6 HPF (0-3) A 12/12/19 10:04 Ur Squamous Epith Cells 0-3 HPF (0-3) 12/12/19 10:04 Urine Bacteria None Seen HPF (None Seen) 12/12/19 10:04 - Radiology Interpretation CT scan - head Status: image reviewed by me, report reviewed by me Additional Comment: 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 Prognosis discussed with the family in detail in the presence of the primary attending and the palliative care team staff) 34 year old presented with altered mental status and seizure activity. No seizures since admission. 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 He can remain in persistent vegetative state. His condition was discussed in detail with the family Continue Keppra 500 mg IV Q12 for seizute prophylaxis. Ativan 2 mg IV for seizure greater than 2 minutes. Neurochecks every 2 hours. Observe seizure precautions. Strict control of BP and BG. Avoid antiplatelets and anticoagulants due to further risk of bleed. Continue medical management per neurosurgery, medicine and pulmonology. Palliative care team on board. Prognosis was discussed in detail with the sister and the family member during the family meeting. Plan discussed with the nursing staff
--- NOTE | 2019-12-16 14:40 | PDOC.FMACP ---
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 Patient mother, sister, and two cousins via phone/ patient not decisional secondary to devastating pontine hemorrhage. Adult Nurse Practitioner used for as needed for patient mother. The diagnosis, prognosis and goals of care were discussed. Appropriate forms and documentation to accomplish the goals of care were discussed. All questions were answered. Discussed resuscitation status and transition to DNAR, discussed outcomes. Further discussed Goal of care and Trach/PEG with LTAC verses compassionate extubation. Family having difficulty making a decision and grasping the poor prognosis. Spiritual care involved in conversation. The Palliative Care Team will continue to assist with completion of forms/documentation as appropriate. Family discussing aggressive care verses comfort measures. Palliative Care will continue to assist with goal of care, family support, and education in relation to trajectory/poor prognosis and lack of meaningful recovery related to pontine hemorrhage Dr Webster and Dr Jones also present for initial aspect of conversation with family Time Spent (mins): 60
--- NOTE | 2019-12-16 14:48 | PDOC.FMACP ---
Advance Care Planning - Problem (1) Encephalopathy acute Status: Acute Code(s): G93.40 - ENCEPHALOPATHY, UNSPECIFIED (2) Hypertensive crisis Status: Acute Code(s): I16.9 - HYPERTENSIVE CRISIS, UNSPECIFIED (3) Acute respiratory failure with hypoxemia Status: Acute Code(s): J96.01 - ACUTE RESPIRATORY FAILURE WITH HYPOXIA (4) Acute renal failure Status: Acute Qualifiers: Acute renal failure type: unspecified Qualified Code(s): N17.9 - Acute kidney failure, unspecified (5) Pontine hemorrhage Status: Acute Code(s): I61.3 - NONTRAUMATIC INTRACEREBRAL HEMORRHAGE IN BRAIN STEM (6) Aspiration pneumonia Status: Acute Code(s): J69.0 - PNEUMONITIS DUE TO INHALATION OF FOOD AND VOMIT - Note Summary: Advanced Care Planning was discussed. The diagnosis, prognosis and goals of care were discussed. Appropriate forms and documentation to accomplish the goals of care were discussed. All questions were answered. The Palliative Care Team will be engaged to assist with completion of any outstanding forms that are needed. met with multiple family members. flying i instructor was involved. discussed severity of brain injury, lack of optimism for signifant improvement. continuing care would involve tracheostomy, PEG, and shelter care. Resuscitation status also discussed Time Spent (mins): 45
[2019-12-17] MEDS: Lorazepam 2 MG/ML VIAL SLOW IVP PRN ×4 (03:30→11:44)
[2019-12-17] MEDS: Morphine 2 MG/ML VIAL SLOW IVP PRN ×4 (03:38→16:25)
[2019-12-17 06:30] LABS: #Monocytes 0.4 thou/uL (0.11-0.59); %Basophils 0.1 % (0.0-1.0); %Eosinophils 0.2 % (0.0-10.0); %Lymphocytes 9.3 % (21.0-51.0); %Monocytes 3.9 % (0.0-10.0); %Neutrophils 86.5 % (42.0-75.0); Hemoglobin 10.7 g/dL (14.0-18.0); Mean Corpuscular HGB CONC 32.2 g/dL (32.0-36.0); Mean Corpuscular Hemoglobin 30.7 pg (27.0-31.0); Mean Corpuscular Volume 95.5 fL (78.0-98.0); Mean Platelet Volume 9.1 fL (7.4-10.4); Platelet Count 232 thou/uL (130-400); RBC Distribution Width 12.9 % (11.5-14.5); Red Blood Cell (RBC) Count 3.48 mill/uL (4.70-6.10); White Blood Cell (WBC) Count 10.4 thou/uL (4.8-10.8)
[2019-12-17] MEDS: Piperacillin/Tazobactam 2.25 GM in Sodium Chloride 0.9% 100 ML IVPB SCH ×3 (06:31→20:46)
[2019-12-17] MEDS: Vancomycin 1 GM in Premix Bag 1 BAG IVPB SCH (06:32)
[2019-12-17] MEDS: methylPREDNISolone Sod Succ 40 MG VIAL IVP SCH ×3 (06:32→17:12)
[2019-12-17] MEDS: Propofol 1,000 MG/100 ML VIAL IV PRN ×6 (06:40→22:21)
--- NOTE | 2019-12-17 07:10 | PRG ---
DATE OF SERVICE: 12/17/2019 I saw Mr. Alanis Kay in the ICU today. Yesterday, he was on a propofol drip complicating his neurological examination, but today there is no such sedating medication being administered while I examine him. There was a family meeting yesterday with palliative care. The mother expressed interest in taking the ventilator home with her and taking her son to her home. No other definitive plans were suggested by the family. Among the electronically recorded vital signs, I see a maximum temperature of 100.4 degrees Fahrenheit, on the 6th the maximum temperature was 102.4 degrees Fahrenheit. Blood pressures have ranged in the 110s to 140s. I find Mr. Alanis Kay's examination has deteriorated slightly. I do not get a response in the lower extremities. We are back to an exam that he had at the beginning with the lack of doll's eyes, but has present corneal reflex, gag, and breathing. Staph aureus and E. coli are growing out of his bronchioloalveolar lavage. White blood cell count 17.2 yesterday and his sodium was 147. We will continue to follow Mr. Alanis Kay. Due to neurological change, we will order CT scan for sometime today. Again, prognosis for complete independence is quite poor. Life in a diminished capacity is possible and consciousness is possible with some degree of disconnection at the level of the brainstem. (15 min) Job ID: [id number] MTDD
--- NOTE | 2019-12-17 08:03 | RAD ---
CHEST 1 VIEW: Date: 12/17/2019 INDICATION: History of pneumonia. COMPARISON: Prior exam dated 12/16/2019. FINDINGS: The air space disease diffusely throughout the right lung persists. There is worsening opacity in the left lower lobe. Cardiomegaly persists. Tracheostomy tube and gastric catheter are unchanged. No pne umothorax is evident. IMPRESSION: Worsening pneumonia. POS: BH
[2019-12-17] MEDS: Pantoprazole 40 MG VIAL IVP SCH (08:09)
[2019-12-17 08:49] LABS: Anion Gap 17 mmol/L (10-20); BUN (Urea Nitrogen) 67 mg/dL (8.9-20.6); Calc. Creatinine Clearance 92 mL/min (70-130); Calcium 8.3 mg/dL (7.8-10.44); Carbon Dioxide 24 mmol/L (22-29); Chloride 111 mmol/L (98-107); Estimated GFR-MDRD 32; Glucose 171 mg/dL (70-105); Potassium 4.1 mmol/L (3.5-5.1); Sodium 148 mmol/L (136-145)
[2019-12-17 08:50] LABS: Actual Bicarbonate (HCO3a) 23.3 mEq/L (22-28); Base Excess (BEa) -1.6 mEq/L (-2.0 to +3.0); CO2 Tension 39.8 mmHg (35.0-45.0); Carboxyhemoglobin (COHb) 0.3 gm% (0.0-3.0); Hemoglobin (Hb) 10.9 g/dL (14.0-18.0); Potassium - ABG Lab 3.76 mmol/L (3.70-5.30); pH, Arterial 7.39 (7.35-7.45)
[2019-12-17 08:52] LABS: O2 Tension (PaO2), arterial 49.4 mmHg (80.0-100.0)
[2019-12-17 08:53] LABS: Puncture Site L.R.
--- NOTE | 2019-12-17 09:42 | PDOC.HOSPP ---
- Subjective Encounter Date: 12/17/19 Encounter Time: 09:34 Subjective: unresponsive, intubated, - Objective Vital Signs & Weight: Vital Signs (12 hours) Temp Pulse Resp BP 12/17/19 09:00 97.7 F 12/17/19 08:36 66 130/92 H 12/17/19 08:00 99.5 F 28 H 12/17/19 07:00 100.0 F H 12/17/19 00:00 97.3 F L 28 H 12/16/19 23:00 98.8 F 12/16/19 22:11 93 129/83 12/16/19 22:00 100.4 F H 44 H Weight Admit Weight 328 lb Weight 324 lb 1.272 oz Most Recent Monitor Data Heart Rate from ECG 64 NIBP 127/89 NIBP BP-Mean 101 Respiration from ECG 28 SpO2 92 I&O: 12/16/19 12/17/19 12/18/19 06:59 06:59 06:59 Intake Total 2366 2119 Output Total 2560 1521 6 Balance -194 598 -6 Result Diagrams: 12/17/19 03:11 12/17/19 03:11 Radiology Reviewed by me: Yes (cxr- trach, bilat infiltrates) Hospitalist ROS - Medication Medications: Active Medications Generic Name Dose Route Start Last Admin Trade Name Freq PRN Reason Stop Dose Admin Acetaminophen 650 mg 12/12/19 12:15 12/16/19 08:56 Acetaminophen 325 Mg Tab PO 650 mg Q6H PRN Administration Fever > 101 or Headache Levetiracetam 500 mg/ Device 100 mls @ 200 mls/hr 12/12/19 21:00 12/17/19 08:09 IVPB 100 mls BID CHRIS Administration Fentanyl Citrate 2,000 mcg/ 100 mls @ 0 mls/hr 12/12/19 14:15 12/12/19 21:30 Sodium Chloride IV 01/11/20 14:15 100 mls INF CHRIS Administration Protocol Per Protocol Nicardipine HCl 50 mg/ Sodium 250 mls @ 0 mls/hr 12/12/19 20:46 12/16/19 05:21 Chloride IVPB 250 mls INF PRN Administration SBP > 140 Protocol Titrate Vancomycin HCl 1 gm/ Device 200 mls @ 200 mls/hr 12/16/19 06:00 12/17/19 06:32 IVPB 200 mls 0600,1800 CHRIS Administration Piperacillin Sod/Tazobactam 100 mls @ 200 mls/hr 12/16/19 20:00 12/17/19 06:31 Sod 2.25 gm/ Sodium Chloride IVPB 100 mls 0400,1200,2000 CHRIS Administration Labetalol HCl 10 mg 12/12/19 12:15 12/15/19 15:05 Labetalol Hcl 100 Mg/20 Ml Vial SLOW IVP 10 mg Q2H PRN Administration SBP > 140 Lorazepam 2 mg 12/12/19 14:15 12/17/19 07:33 Lorazepam 2 Mg/Ml Vial SLOW IVP 01/11/20 14:15 2 mg Q1H PRN Administration Breakthrough agitation Methylprednisolone Sodium Succinate 40 mg 12/16/19 12:00 12/17/19 06:32 Methylprednisolone Sod Succ 40 Mg Vial IVP 40 mg Q6HR CHRIS Administration Morphine Sulfate 2 mg 12/12/19 14:15 12/17/19 05:55 Morphine 2 Mg/Ml Vial SLOW IVP 01/11/20 14:15 2 mg Q1H PRN Administration Breakthrough Pain/Agitation Pantoprazole Sodium 40 mg 12/13/19 09:00 12/17/19 08:09 Pantoprazole 40 Mg Vial IVP 40 mg DAILY CHRIS Administration Propofol 1,000 mg 12/12/19 14:15 12/17/19 07:41 Propofol 1,000 Mg/100 Ml Vial IV 01/11/20 14:15 1,000 mg INF PRN Administration TO ACHIEVE GOAL RASS Protocol Sodium Chloride 10 ml 12/12/19 12:15 12/16/19 08:57 Flush - Normal Saline 10 Ml Syringe IVF 10 ml PRN PRN Administration Saline Flush - Exam Neck: no JVD Heart: RRR, no murmur Respiratory - other findings: coarse BS with rhonchi Gastrointestinal: soft, normal bowel sounds Extremities: 1+ LE edema Neurological - other findings: non-focal Hosp A/P (1) Encephalopathy acute Code(s): G93.40 - ENCEPHALOPATHY, UNSPECIFIED Status: Acute (2) Hypertensive crisis Code(s): I16.9 - HYPERTENSIVE CRISIS, UNSPECIFIED Status: Acute (3) Acute respiratory failure with hypoxemia Code(s): J96.01 - ACUTE RESPIRATORY FAILURE WITH HYPOXIA Status: Acute (4) Acute renal failure Status: Acute Qualifiers: Acute renal failure type: unspecified Qualified Code(s): N17.9 - Acute kidney failure, unspecified (5) Pontine hemorrhage Code(s): I61.3 - NONTRAUMATIC INTRACEREBRAL HEMORRHAGE IN BRAIN STEM Status: Acute (6) Aspiration pneumonia Code(s): J69.0 - PNEUMONITIS DUE TO INHALATION OF FOOD AND VOMIT Status: Acute Qualifiers: Laterality: bilateral Lung location: lower lobe of lung - Plan post emergent tracheostomy resp failure requiring mech ventilation, requiring high pressure support 100% FiO2 cont iv antibx cont iv seizure meds on iv cardene monitor renal fcn, temp labile hyperventilates without sedation prognosis guarded discuss with speeder worker
[2019-12-17] MEDS ORDERED: Furosemide 40 MG/4 ML VIAL SLOW IVP SCH (10:00)
--- NOTE | 2019-12-17 10:32 | PRG ---
DATE OF SERVICE: 12/17/2019 TIME SPENT: 35 minutes of critical time. SUBJECTIVE: The patient remains intubated on mechanical ventilation continued to have severe oxygenation issues. OBJECTIVE: VITAL SIGNS: Temperature is 100, blood pressure 127/89, heart rate 64, 24-hour intake 2119, output 1521. HEENT: Unremarkable. NECK: No JVD. LUNGS: Coarse breath sounds. CARDIAC: S1 and S2. Regular. ABDOMEN: Soft. EXTREMITIES: Edematous. LABORATORY DATA: Sodium 140, potassium 4.1, chloride 111, CO2 of 24, BUN 67, creatinine 2.3, glucose 171. White blood cell count 10.4, hematocrit 33.2, and platelet count 232. IMAGING: X-ray continues to show pulmonary vascular congestion. ABG, pH 7.39, pCO2 of 39, pO2 of 49. ASSESSMENT: 1. Aspiration pneumonia. 2. Status post pontine hemorrhage. 3. 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 PLAN: I will try to put him on BiPAP, bilevel. Continue the antibiotics. PROGNOSIS: Quite poor. Job ID: [id number]
[2019-12-17] MEDS: Acetaminophen 325 MG TAB PO PRN (16:25)
--- NOTE | 2019-12-17 16:28 | PDOC.PALPN ---
Palliative Progress Note - Subjective Trach with mechanical ventilation. Required increase in ventilatory support, back on pressure support, febrile, poor urine output. - Objective Vital Signs: Vital Signs - Most Recent Temp Pulse Resp BP Pulse Ox 99.7 F H 66 25 H 146/104 H 93 L 12/17/19 16:00 12/17/19 14:33 12/17/19 16:00 12/17/19 14:33 12/17/19 08:00 - Physical Exam Constitutional: encephalitic, ill appearing HEENT: moist MMs Respiratory: no wheezing, diminished lung sound Deviation from normal: Trach/adventicious lung sounds Cardiovascular: RRR Deviation from normal: obese Genitourinary: ling catheter Musculoskeletal: edema present Deviation from normal: no purposeful movement Skin: cap refill <2 seconds Deviation from normal: non responsive - Assessment (1) Acute renal failure Current Visit: Yes Status: Acute Qualifiers: Acute renal failure type: unspecified Qualified Code(s): N17.9 - Acute kidney failure, unspecified (2) Encephalopathy acute Code(s): G93.40 - ENCEPHALOPATHY, UNSPECIFIED Current Visit: Yes Status: Acute (3) Hypertensive crisis Code(s): I16.9 - HYPERTENSIVE CRISIS, UNSPECIFIED Current Visit: Yes Status: Acute (4) 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 They have designated Lillian as surrogate decision maker. Lengthy conversation again in relation to resuscitation status and goal of care. Discussed decline in condition today, teaching again in relation to poor meaningful recovery. Revisited that patient had expressed to Lillian recently that he would not desire to live in a "Vegetative state". Reminded her that she and her family are only to be the voice for Mr Thapa. *She is contemplating transition to DNAR status. *Discussed harm verses care and poor outcome should the need for resuscitation need to be carried out. *Further states that she does not believe that the family will elect to withdraw care. Spiritual care involved with patient, she expressed Father Moe had met with her also today for support. [60] minutes spent on this encounter with >50% of the time in counseling and coordination of care. - ROS Non Response: due to endotracheal tube, due to mental status
[2019-12-17 17:47] LABS: Vancomycin, Trough 29.9 ug/mL
[2019-12-17] MEDS: niCARdipine 50 MG in Sodium Chloride 0.9% 250 ML 230 ML IVPB PRN (18:42)
[2019-12-18] MEDS: methylPREDNISolone Sod Succ 40 MG VIAL IVP SCH ×5 (01:14→23:44)
[2019-12-18] MEDS: Propofol 1,000 MG/100 ML VIAL IV PRN ×8 (01:16→23:05)
[2019-12-18] MEDS: niCARdipine 50 MG in Sodium Chloride 0.9% 250 ML 230 ML IVPB PRN ×4 (01:41→20:18)
[2019-12-18 04:12] LABS: #Lymphocytes 1.2 thou/uL (1.20-3.40); #Monocytes 0.6 thou/uL (0.11-0.59); #Neutrophils 11.1 thou/uL (1.40-6.50); %Basophils 0.1 % (0.0-1.0); %Eosinophils 0.2 % (0.0-10.0); %Lymphocytes 9.3 % (21.0-51.0); %Monocytes 4.8 % (0.0-10.0); %Neutrophils 85.6 % (42.0-75.0); Hemoglobin 11.1 g/dL (14.0-18.0); Mean Corpuscular HGB CONC 34.5 g/dL (32.0-36.0); Mean Corpuscular Hemoglobin 31.9 pg (27.0-31.0); Mean Corpuscular Volume 92.4 fL (78.0-98.0); Mean Platelet Volume 9.7 fL (7.4-10.4); Platelet Count 252 thou/uL (130-400); RBC Distribution Width 12.7 % (11.5-14.5); Red Blood Cell (RBC) Count 3.49 mill/uL (4.70-6.10); White Blood Cell (WBC) Count 12.9 thou/uL (4.8-10.8)
[2019-12-18] MEDS: Piperacillin/Tazobactam 2.25 GM in Sodium Chloride 0.9% 100 ML IVPB SCH ×3 (04:52→20:19)
[2019-12-18 05:11] LABS: Anion Gap 18 mmol/L (10-20); BUN (Urea Nitrogen) 103 mg/dL (8.9-20.6); Calc. Creatinine Clearance 50 mL/min (70-130); Calcium 8.5 mg/dL (7.8-10.44); Carbon Dioxide 22 mmol/L (22-29); Chloride 110 mmol/L (98-107); Estimated GFR-MDRD 15; Glucose 208 mg/dL (70-105); Potassium 3.8 mmol/L (3.5-5.1); Sodium 146 mmol/L (136-145)
[2019-12-18 05:12] LABS: Vancomycin, Random 24.1 ug/mL (See Comment)
[2019-12-18] MEDS ORDERED: Vancomycin 1.5 GRAM/300 ML BAG 1.5 GM in Premix Bag 1 BAG IVPB SCH ×2 (06:00→11:00)
[2019-12-18 06:48] LABS: Base Excess (BEa) -1.9 mEq/L (-2.0 to +3.0); CO2 Tension 34.3 mmHg (35.0-45.0); Calcium, Ionized (arterial) 1.09 mmol/L (1.12-1.30); Carboxyhemoglobin (COHb) 0.2 gm% (0.0-3.0); Hemoglobin (Hb) 11.1 g/dL (14.0-18.0); pH, Arterial 7.43 (7.35-7.45)
[2019-12-18 06:59] LABS: O2 Tension (PaO2), arterial 54.1 mmHg (80.0-100.0)
[2019-12-18 07:00] LABS: ALV-art Gradient 616.025 mmHg (0-20); Puncture Site RR
--- NOTE | 2019-12-18 07:05 | PRG ---
DATE OF SERVICE: 12/18/2019 I saw Russell Kay in his ICU room this morning. Discussions are ongoing with the palliative care team and the family. Right now, it is the feeling of the family not to withdraw support and they are contemplating whether to make him DNR. Among the electronically recorded vital signs, the maximum temperature I see is 99.8 degrees Fahrenheit. Blood pressures have been in the 130s and 120s. On examination, there is less response to the stimulus applied to the extremities. There is a corneal reflex. There is a gag reflex. Pupils are small, but I believe they react. CT examination of the brain scheduled for yesterday was canceled. Mr. Alanis Kay's pontine hemorrhage which will likely disconnect the conscious brain from the remainder of the body to some extent. There may be a connection that comes back on line after the blood is resolved. However, he will have deficit that requires care for activities of daily living, almost assuredly. The amount of reconnection possible is much greater than in larger pontine hemorrhages, but I doubt that he will return to the life he knew before. The family is thinking about how they would like to proceed with care. There is no neurosurgical intervention warranted at this time. In my view, if he were to develop hydrocephalus, it would be earlier than now. If the team would like to get a CT scan of the brain and call for neurosurgical opinion on that scan in the future, we will always be available. Job ID: [id number] MTDD
[2019-12-18] MEDS: Pantoprazole 40 MG VIAL IVP SCH (08:22)
--- NOTE | 2019-12-18 09:49 | RAD ---
PORTABLE CHEST: HISTORY: Pneumonia followup. COMPARISON: Prior day's exam. FINDINGS: Heart size is enlarged. The interstitial alveolar lung changes are similar to the prior examination. Tracheostomy tube and NG tubes appear unchanged. IMPRESSION: Stable exam. POS: MARCO
--- NOTE | 2019-12-18 10:05 | PRG ---
DATE OF SERVICE: 12/18/2019 35 minutes of critical care time. SUBJECTIVE: The patient remains intubated, on mechanical ventilation. He is still requiring high amounts of O2 and he is on bilevel. OBJECTIVE: VITAL SIGNS: Temperature 97.7, pulse 63, blood pressure 130/93, O2 saturation 93%. 24-hour intake 3066, output 402. HEENT: Unchanged. NECK: Trach in good position. No gag reflex. CARDIAC: S1 and S2. Regular. ABDOMEN: Soft, obese, nontender. EXTREMITIES: Mildly edematous. LUNGS: Breath sounds diminished bilaterally. LABORATORY DATA: White blood cell count 12.9, hematocrit 32.2, and platelet count 252. PH 7.43, pCO2 of 34, pO2 of 54 on bilevel 38/15, FiO2 of 100%. Sodium 146, potassium 3.8, chloride 110, CO2 of 22, BUN 103, creatinine 4.5, and glucose 208. ASSESSMENT: 1. Locked-in syndrome. 2. Acute renal failure, now developing oliguria. 3. Acute respiratory distress syndrome. 4. Status post pontine brain hemorrhage. PLAN: 1. We are having a hard time getting him down to CT scan because he requires bilevel and cannot tolerate transport on regular ventilator. 2. Not weanable at this time. 3. We will ask Nephrology to see as the patient may need dialysis. Job ID: [id number]
[2019-12-18] MEDS: Lorazepam 2 MG/ML VIAL SLOW IVP PRN ×5 (11:49→23:44)
--- NOTE | 2019-12-18 12:06 | CON ---
DATE OF CONSULTATION: REASON FOR CONSULTATION: Acute kidney injury and oliguria. HISTORY OF PRESENT ILLNESS: This is a very pleasant 34-year-old gentleman, who presented to the hospital with pontine hemorrhage with progressive renal failure. His creatinine was 1.4 on admission and it is 4.5 today. The patient has not received any nephrotoxic medication, but has had respiratory failure. PAST MEDICAL HISTORY: Hypertension, CKD stage 3, obesity. SURGICAL HISTORY: Unremarkable. SOCIOECONOMIC HISTORY: No alcohol or drug use. FAMILY HISTORY: Negative for ESRD. ALLERGIES: REVIEWED. HOME MEDICATIONS: List reviewed. HOSPITAL MEDICATIONS: List reviewed. REVIEW OF SYSTEMS: Unobtainable. PHYSICAL EXAMINATION: On exam, the patient is resting. General: The patient is awake and alert. Vital Signs: Afebrile, pulse 75, breathing at 16, blood pressure 130/93. HEENT: Head normocephalic and atraumatic. Eyes intact, no ulcers. Nose intact, no ulcers. Ears intact, no ulcers. Neck: Supple. No JVD. Chest: Symmetrical and clear. Cardiovascular: Shows S1 and S2, no rub, no murmur. Gastrointestinal: Abdomen is soft, bowel sounds positive. Extremities: Show no edema or ulcers. Skin: Shows no rash or petechiae. Musculoskeletal: Shows no joint swelling or stiffness. Genitourinary: Shows no Rob or CVA tenderness. Neurologic: The patient is resting. LABORATORY DATA: Showed sodium 146, creatinine 4.5. ASSESSMENT AND PLAN: Acute kidney injury with chronic kidney disease with rising BUN and creatinine, most likely progression of chronic kidney disease in the setting of multiple other comorbidities. I will change the IV fluid to D5 water and plan for dialysis. His urine output and edema are getting worse. Anemia, stable. Hypertension, stable. Medication based on GFR, appropriate. Job ID: [id number]
[2019-12-18] MEDS: Dextrose 5% in Water 1,000 ML IV SCH (12:20)
[2019-12-18] MEDS: Labetalol HCl 100 MG/20 ML VIAL SLOW IVP PRN ×2 (13:29→15:15)
--- NOTE | 2019-12-18 13:49 | PDOC.PALPN ---
Palliative Progress Note - Subjective Tachypnea, mechanical ventilation via trach. Renal failure requiring dialysis. Remains non responsive, diastolic BP remains elevated. - Objective Vital Signs: Vital Signs - Most Recent Temp Pulse Resp BP Pulse Ox 99.0 F 94 25 H 165/95 H 91 L 12/17/19 18:00 12/18/19 13:29 12/18/19 06:00 12/18/19 13:29 12/17/19 20:00 - Physical Exam Constitutional: encephalitic, mild distress HEENT: moist MMs Respiratory: no wheezing, diminished lung sound, tachypnea Cardiovascular: RRR Gastrointestinal: soft, incontinent Deviation from normal: obese Genitourinary: ling catheter Musculoskeletal: edema present Deviation from normal: no purposeful movement Skin: cap refill <2 seconds, no lesions, no rash - Assessment (1) Acute renal failure Current Visit: Yes Status: Acute Qualifiers: Acute renal failure type: unspecified Qualified Code(s): N17.9 - Acute kidney failure, unspecified (2) Encephalopathy acute Code(s): G93.40 - ENCEPHALOPATHY, UNSPECIFIED Current Visit: Yes Status: Acute (3) Hypertensive crisis Code(s): I16.9 - HYPERTENSIVE CRISIS, UNSPECIFIED Current Visit: Yes Status: Acute (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 Transitioned to DNAR, document completed. Dr Dockery and Dr Rodriguez notified. Family would like to pursue dialysis. Kristen says that her parents are having a difficult time grasping the poor prognosis and "want to keep doing everything". Revisited Mr Thapa expressed wishes Palliative care and family will revisit Goal of Care Saturday12/21/2019 [40] minutes spent on this encounter with >50% of the time in counseling and coordination of care. - ROS Non Response: due to mental status
[2019-12-18] MEDS: Morphine 2 MG/ML VIAL SLOW IVP PRN ×2 (15:19→20:31)
--- NOTE | 2019-12-18 17:54 | PDOC.HOSPP ---
- Subjective Encounter Date: 12/18/19 Encounter Time: 16:00 non-verbal Subjective: Pt seen in follow-up regarding pontine hemorrhage. Patient is nonverbal. - Objective Vital Signs & Weight: Vital Signs (12 hours) Pulse Resp BP 12/18/19 14:51 85 12/18/19 13:29 94 165/95 H 12/18/19 12:18 88 12/18/19 07:56 64 12/18/19 06:00 25 H Weight Admit Weight 328 lb Weight 331 lb 2.149 oz Most Recent Monitor Data Heart Rate from ECG 88 NIBP 151/103 NIBP BP-Mean 119 Respiration from ECG 36 SpO2 87 I&O: 12/17/19 12/18/19 12/19/19 06:59 06:59 06:59 Intake Total 2119 3066 Output Total 1521 402 Balance 595 1504 Result Diagrams: 12/18/19 03:44 12/18/19 03:43 Additional Labs: I reviewed patient's labs and MAR EKG Reviewed by me: Yes (Telemetry: NSR) Hospitalist ROS - Review of Systems ROS unobtainable: due to endotracheal tube - Medication Medications: Active Medications Generic Name Dose Route Start Last Admin Trade Name Freq PRN Reason Stop Dose Admin Acetaminophen 650 mg 12/12/19 12:15 12/17/19 16:25 Acetaminophen 325 Mg Tab PO 650 mg Q6H PRN Administration Fever > 101 or Headache Levetiracetam 500 mg/ Device 100 mls @ 200 mls/hr 12/12/19 21:00 12/18/19 08:23 IVPB 100 mls BID CHRIS Administration Fentanyl Citrate 2,000 mcg/ 100 mls @ 0 mls/hr 12/12/19 14:15 12/12/19 21:30 Sodium Chloride IV 01/11/20 14:15 100 mls INF CHRIS Administration Protocol Per Protocol Nicardipine HCl 50 mg/ Sodium 250 mls @ 0 mls/hr 12/12/19 20:46 12/18/19 15:18 Chloride IVPB 250 mls INF PRN Administration SBP > 140 Protocol Titrate Piperacillin Sod/Tazobactam 100 mls @ 200 mls/hr 12/16/19 20:00 12/18/19 11:35 Sod 2.25 gm/ Sodium Chloride IVPB 100 mls 0400,1200,2000 CHRIS Administration Dextrose/Water 1,000 mls @ 30 mls/hr 12/18/19 12:15 12/18/19 12:20 D5w IV 1,000 mls .Q24H CHRIS Administration Labetalol HCl 10 mg 12/12/19 12:15 12/18/19 13:29 Labetalol Hcl 100 Mg/20 Ml Vial SLOW IVP 10 mg Q2H PRN Administration SBP > 140 Lorazepam 2 mg 12/12/19 14:15 12/18/19 17:34 Lorazepam 2 Mg/Ml Vial SLOW IVP 01/11/20 14:15 2 mg Q1H PRN Administration Breakthrough agitation Methylprednisolone Sodium Succinate 40 mg 12/16/19 12:00 12/18/19 17:34 Methylprednisolone Sod Succ 40 Mg Vial IVP 40 mg Q6HR CHRIS Administration Morphine Sulfate 2 mg 12/12/19 14:15 12/18/19 15:19 Morphine 2 Mg/Ml Vial SLOW IVP 01/11/20 14:15 2 mg Q1H PRN Administration Breakthrough Pain/Agitation Pantoprazole Sodium 40 mg 12/13/19 09:00 12/18/19 08:22 Pantoprazole 40 Mg Vial IVP 40 mg DAILY CHRIS Administration Propofol 1,000 mg 12/12/19 14:15 12/18/19 17:34 Propofol 1,000 Mg/100 Ml Vial IV 01/11/20 14:15 1,000 mg INF PRN Administration TO ACHIEVE GOAL RASS Protocol Sodium Chloride 10 ml 12/12/19 12:15 12/16/19 08:57 Flush - Normal Saline 10 Ml Syringe IVF 10 ml PRN PRN Administration Saline Flush - Exam General - other findings: Intubated, morbidly obese. 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 IN BRAIN STEM Status: Acute (2) Encephalopathy acute Code(s): G93.40 - ENCEPHALOPATHY, UNSPECIFIED Status: Acute (3) Acute respiratory failure with hypoxemia Code(s): J96.01 - ACUTE RESPIRATORY FAILURE WITH HYPOXIA Status: Acute (4) Hypertensive crisis Code(s): I16.9 - HYPERTENSIVE CRISIS, UNSPECIFIED Status: Acute (5) Acute renal failure Status: Acute Qualifiers: Acute renal failure type: unspecified Qualified Code(s): N17.9 - Acute kidney failure, unspecified (6) Aspiration pneumonia Code(s): J69.0 - PNEUMONITIS DUE TO INHALATION OF FOOD AND VOMIT Status: Acute Qualifiers: Laterality: bilateral Lung location: lower lobe of lung (7) Morbid obesity Status: Chronic - Plan Patient is currently intubated. Nephrology service consulted for oliguria and acute kidney injury. cont iv Zosyn and vancomycin. cont iv Keppra prognosis guarded Patient has been made DNAR.
[2019-12-18 20:49] LABS: Actual Bicarbonate (HCO3a) 20.9 mEq/L (22-28); Base Excess (BEa) -7.5 mEq/L (-2.0 to +3.0); Calcium, Ionized (arterial) 1.09 mmol/L (1.12-1.30); Carboxyhemoglobin (COHb) 0.4 gm% (0.0-3.0); Hemoglobin (Hb) 12.6 g/dL (14.0-18.0); Potassium - ABG Lab 4.52 mmol/L (3.70-5.30)
[2019-12-18 20:50] LABS: O2 Tension (PaO2), arterial 33.2 mmHg (80.0-100.0)
[2019-12-18 20:51] LABS: Puncture Site R RADIAL
[2019-12-18] MEDS: fentaNYL Citrate/PF 2,000 MCG in Sodium Chloride 0.9% 60 ML IV SCH (21:13)
[2019-12-18] MEDS ORDERED: Sterile Water 10 ML VIAL FS PRN (21:14)
[2019-12-18] MEDS ORDERED: Vecuronium 10 MG VIAL IV SCH (21:15)
[2019-12-19] MEDS: Morphine 2 MG/ML VIAL SLOW IVP PRN (00:08)
[2019-12-19] MEDS: Piperacillin/Tazobactam 2.25 GM in Sodium Chloride 0.9% 100 ML IVPB SCH ×3 (03:37→20:34)
[2019-12-19] MEDS: Propofol 1,000 MG/100 ML VIAL IV PRN ×5 (03:56→22:27)
[2019-12-19 04:41] LABS: BUN (Urea Nitrogen) 135 mg/dL (8.9-20.6)
[2019-12-19 04:43] LABS: Anion Gap 26 mmol/L (10-20); Calc. Creatinine Clearance 33 mL/min (70-130); Calcium 7.8 mg/dL (7.8-10.44); Carbon Dioxide 19 mmol/L (22-29); Chloride 105 mmol/L (98-107); Estimated GFR-MDRD 9; Glucose 200 mg/dL (70-105); Potassium 6.4 mmol/L (3.5-5.1); Sodium 144 mmol/L (136-145)
[2019-12-19 05:01] LABS: Hemoglobin 12.2 g/dL (14.0-18.0); Mean Corpuscular HGB CONC 32.6 g/dL (32.0-36.0); Mean Corpuscular Hemoglobin 31.1 pg (27.0-31.0); Mean Corpuscular Volume 95.4 fL (78.0-98.0); Platelet Count 351 thou/uL (130-400); RBC Distribution Width 12.9 % (11.5-14.5); Red Blood Cell (RBC) Count 3.93 mill/uL (4.70-6.10); White Blood Cell (WBC) Count 31.4 thou/uL (4.8-10.8)
[2019-12-19 05:02] LABS: Band 32 % (5-11); Eosinophils 1 % (0-10); Lymphocytes 12 % (21-51); MDiff Complete? YES; Monocytes 3 % (0-10); Myelocyte 2 % (0-0); Neutrophil 48 % (42-75); Reactive Lymphocytes 2 % (0-10)
[2019-12-19] MEDS: methylPREDNISolone Sod Succ 40 MG VIAL IVP SCH ×4 (06:09→23:10)
[2019-12-19 07:34] LABS: Actual Bicarbonate (HCO3a) 22.2 mEq/L (22-28); Base Excess (BEa) -10.3 mEq/L (-2.0 to +3.0); Calcium, Ionized (arterial) 1.02 mmol/L (1.12-1.30); Carboxyhemoglobin (COHb) 0.7 gm% (0.0-3.0); Hemoglobin (Hb) 13.5 g/dL (14.0-18.0); Potassium - ABG Lab 6.48 mmol/L (3.70-5.30)
[2019-12-19 08:11] LABS: CO2 Tension 86.9 mmHg (35.0-45.0); O2 Tension (PaO2), arterial 36.5 mmHg (80.0-100.0); pH, Arterial 7.03 (7.35-7.45)
[2019-12-19 08:12] LABS: ALV-art Gradient 567.875 mmHg (0-20); Puncture Site RRAD
[2019-12-19 08:23] LABS: Vancomycin, Random 15.7 ug/mL (See Comment)
--- NOTE | 2019-12-19 08:33 | RAD ---
Chest one view HISTORY: Pneumonia. Follow-up. COMPARISON: 12/18/2019. FINDINGS: Upper cardiac margin is now completely obscured by very dense infiltrates within each upper lobe. Infiltrate involving the left lower lobe is similar in appearance to the prior study. Mediastinum remains midline with lines and tubes unchanged in position. No evidence of pneumothorax. IMPRESSION : Severe interval worsening in consolidation of each upper lobe.
[2019-12-19] MEDS: Pantoprazole 40 MG VIAL IVP SCH (09:30)
--- NOTE | 2019-12-19 10:46 | PRG ---
DATE OF SERVICE: 12/19/2019 SUBJECTIVE: Russell Thapa is a 34-year-old gentleman, tachypneic in the 30s, hypoxemic, last night he was paralyzed, and started on a fentanyl drip. X-ray this morning shows rather extensive diffuse ground-glass opacity, both lungs. His blood gas shows severe hypoxemia. He is clearly unresponsive. OBJECTIVE: VITAL SIGNS: Pulse 85, blood pressure 101/80, saturations 70% on bilevel 100%, and respirations 25 . CHEST: No rhonchi. CARDIAC: Sinus tachycardia. ABDOMEN: Massive, soft. LABORATORY DATA: His white count is 31,000, hemoglobin and hematocrit of 12 and 37, and platelet count 351. His PO2 was 36, pCO2 of 86, and pH 7.03. His previous pH was 7.20. Creatinine is 8, BUN is 135. X-ray: Diffuse infiltrates. ASSESSMENT: 1. 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 2. Multiorgan failure. 3. Speech disorder. As per the family, he is a DNR. I am discontinuing daily lab, blood gas, and x-rays. Comfort care. . One-half hour of critical time. Job ID: [id number]
[2019-12-19] MEDS ORDERED: Vancomycin HCl 750 MG in Sodium Chloride 0.9% 250 ML 250 ML IVPB SCH (11:00)
[2019-12-19] MEDS ORDERED: Calcium Gluconate 4.6 MEQ in Sodium Chloride 0.9% 100 ML IVPB SCH ×2 (11:00→21:45)
[2019-12-19] MEDS: fentaNYL Citrate/PF 2,000 MCG in Sodium Chloride 0.9% 60 ML IV SCH (11:04)
--- NOTE | 2019-12-19 11:08 | PRG ---
DATE OF SERVICE: 12/19/2019 SUBJECTIVE: A 34-year-old gentleman being seen for acute kidney injury. The patient has developed hyperkalemia. Last night, the family had decided to defer dialysis. This morning at 8 o'clock, the family again deciding about doing dialysis. At the time of dictation at 10:30 a.m., the family still does not want to do dialysis, but is talking to other family members. The patient has developed progressive renal failure and hyperkalemia. PHYSICAL EXAMINATION: GENERAL: The patient is resting and nonresponsive. VITAL SIGNS: Show blood pressure 130/86, pulse of 83, oxygen saturation 67% on maximum oxygenation. HEAD: Normocephalic. NECK: No JVD. CHEST: Symmetrical. EXTREMITY: Shows 4+ edema. Labs show potassium is 6.4. Acute kidney injury with progressive CKD and uremia. Risks versus benefits of dialysis were discussed. Surgery consult has been placed, but the family has not decided to pursue dialysis at this time. They will call me as soon as possible. We will give calcium gluconate. Start Kayexalate and insulin and D50. Overall, prognosis is poor. This was discussed and conveyed to the family. Job ID: [id number]
[2019-12-19] MEDS ORDERED: Dextrose 50% Abboject 50 ML SYRINGE SLOW IVP PRN (14:33)
--- NOTE | 2019-12-19 14:44 | PDOC.HOSPP ---
- Subjective Encounter Date: 12/19/19 Encounter Time: 14:43 Subjective: The patient is intubated. He has no corneal or gag reflex. He does no respond to painful stimuli, but per nursing when he is weaned off the ventilator he appears to be in distress. DIscussed with sister extensively, who is HCP. She does not want him to be extubated. She does not want him to have dialysis. SHe does not want family members to see him actively dying. She wants to continue labs and chest X ray for her peace of mind that we are trying. She understands in the bigger picture, his mental status would still be poor despite his respiratory status She does want him to be comfortable otherwise and is okay with morphine prn even if it happens to make him pass - Objective Vital Signs & Weight: Vital Signs (12 hours) Pulse Resp BP Pulse Ox 12/19/19 14:00 50 H 12/19/19 12:00 50 H 12/19/19 10:05 85 12/19/19 10:00 50 H 12/19/19 08:12 84 12/19/19 08:00 50 H 67 L 12/19/19 06:00 50 H 12/19/19 04:57 84 114/78 12/19/19 04:00 50 H Weight Admit Weight 328 lb Weight 5.072 oz Most Recent Monitor Data Heart Rate from ECG 78 NIBP 128/85 NIBP BP-Mean 99 Respiration from ECG 25 SpO2 78 I&O: 12/18/19 12/19/19 12/20/19 06:59 06:59 06:59 Intake Total 3066 3357.3 344.4 Output Total 402 312 100 Balance 2664 3045.3 244.4 Result Diagrams: 12/19/19 03:55 12/19/19 03:55 Hospitalist ROS - Review of Systems Constitutional: denies: fever, chills - Medication Medications: Active Medications Generic Name Dose Route Start Last Admin Trade Name Freq PRN Reason Stop Dose Admin Acetaminophen 650 mg 12/12/19 12:15 12/17/19 16:25 Acetaminophen 325 Mg Tab PO 650 mg Q6H PRN Administration Fever > 101 or Headache Levetiracetam 500 mg/ Device 100 mls @ 200 mls/hr 12/12/19 21:00 12/19/19 09:30 IVPB 100 mls BID CHRIS Administration Fentanyl Citrate 2,000 mcg/ 100 mls @ 0 mls/hr 12/12/19 14:15 12/19/19 11:04 Sodium Chloride IV 01/11/20 14:15 100 mls INF CHRIS Administration Protocol Per Protocol Nicardipine HCl 50 mg/ Sodium 250 mls @ 0 mls/hr 12/12/19 20:46 12/18/19 20:18 Chloride IVPB 250 mls INF PRN Administration SBP > 140 Protocol Titrate Piperacillin Sod/Tazobactam 100 mls @ 200 mls/hr 12/16/19 20:00 12/19/19 11:21 Sod 2.25 gm/ Sodium Chloride IVPB 100 mls 0400,1200,2000 CHRIS Administration Dextrose/Water 1,000 mls @ 30 mls/hr 12/18/19 12:15 12/18/19 12:20 D5w IV 1,000 mls .Q24H CHRIS Administration Vancomycin HCl 750 mg/ Sodium 250 mls @ 250 mls/hr 12/19/19 11:00 12/19/19 14:23 Chloride IVPB 250 mls WILLCALL CHRIS Administration Labetalol HCl 10 mg 12/12/19 12:15 12/18/19 15:15 Labetalol Hcl 100 Mg/20 Ml Vial SLOW IVP 10 mg Q2H PRN Administration SBP > 140 Lorazepam 2 mg 12/12/19 14:15 12/18/19 23:44 Lorazepam 2 Mg/Ml Vial SLOW IVP 01/11/20 14:15 2 mg Q1H PRN Administration Breakthrough agitation Methylprednisolone Sodium Succinate 40 mg 12/16/19 12:00 12/19/19 11:21 Methylprednisolone Sod Succ 40 Mg Vial IVP 40 mg Q6HR CHRIS Administration Morphine Sulfate 2 mg 12/12/19 14:15 12/19/19 00:08 Morphine 2 Mg/Ml Vial SLOW IVP 01/11/20 14:15 2 mg Q1H PRN Administration Breakthrough Pain/Agitation Pantoprazole Sodium 40 mg 12/13/19 09:00 12/19/19 09:30 Pantoprazole 40 Mg Vial IVP 40 mg DAILY CHRIS Administration Propofol 1,000 mg 12/12/19 14:15 12/19/19 14:27 Propofol 1,000 Mg/100 Ml Vial IV 01/11/20 14:15 1,000 mg INF PRN Administration TO ACHIEVE GOAL RASS Protocol Sodium Chloride 10 ml 12/12/19 12:15 12/16/19 08:57 Flush - Normal Saline 10 Ml Syringe IVF 10 ml PRN PRN Administration Saline Flush - Exam General - other findings: intubated Eye - other findings: pinpoint pupils, sluggish reactive to light. No corneal reflex Neck: no JVD Heart: RRR, no murmur, no gallops, no rubs Respiratory: rales Respiratory - other findings: bilaterally Gastrointestinal: soft, normal bowel sounds, no rigidity, distended Extremities: no cyanosis, 2+ LE edema Skin: normal turgor, no lesions, no rashes Neurological: no new deficit Neurological - other findings: not responsive, no response to pain Musculoskeletal: normal tone, normal strength, no muscle wasting Hosp A/P - Plan Chest X ray 12/18: worsening consolidation in each upper lobe CT brain 12/11: 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 CT brain 12/13: stable pontine hemorrhage This is a 34 year old male who presetned with hypertensive emergency and admitted for hemorrhagic stroke. Intubated and has bilateral pneumonia #Acute encephalopathy secondary to hypertensive emergency with hemorrhagic stroke - presented with a BP Of 250/123. CT scan of the brain show large central pontine hemorrhage. Repeat CT 12/14 is stable - neurosurgery recommended no intervention - he is off nicardipine drip currently - he is on mild sedation, but off sedation does not follow commands. He has no corneal or gag reflex. Poor prognosis neurologically - continue keppra for seizure prophylaxis #Acute hypoxic respiratory failure secondary to bilateral pneumonia and volume overload - he is on IV vancomycin and zosyn. Will add IV levaquin. He is on 100% FiO2 with worsening acidosis on ABG today with PH 7.03 - he was on IV lasix BID. His creatinine has worsened. Dialysis was discussed and patient does not want that - continue IV steroids and IV protonix #Leukocytosis - WBC up to 31. Contiue vanc and zosyn. Add levaquin #Hyperkalemia #Acute renal failure - potassium up to 6.4. He was given insulin, dextrose, kayexelate and calcium gl uconate - will repeat potassium per sister's request Hypernatremia - resolved, sodium down to 144 Code status: DNR
[2019-12-19] MEDS ORDERED: Insulin Regular 300 UNITS/3 ML VIAL IVP SCH ×2 (14:45→21:45)
[2019-12-19] MEDS: Dextrose 5% in Water 1,000 ML IV SCH (18:24)
[2019-12-19] MEDS ORDERED: Sodium Bicarb 50 MEQ/50 ML Abboject 8.4% SYRINGE IVP SCH (21:45)
[2019-12-19] MEDS ORDERED: Dextrose 50% Abboject 50 ML SYRINGE SLOW IVP SCH (21:45)
[2019-12-20] MEDS: Propofol 1,000 MG/100 ML VIAL IV PRN ×4 (02:13→19:20)
[2019-12-20 03:56] LABS: Hemoglobin 11.3 g/dL (14.0-18.0); Mean Corpuscular HGB CONC 30.8 g/dL (32.0-36.0); Mean Corpuscular Hemoglobin 29.9 pg (27.0-31.0); Mean Corpuscular Volume 96.9 fL (78.0-98.0); Mean Platelet Volume 9.8 fL (7.4-10.4); Platelet Count 227 thou/uL (130-400); RBC Distribution Width 12.9 % (11.5-14.5); White Blood Cell (WBC) Count 29.6 thou/uL (4.8-10.8)
[2019-12-20] MEDS: Piperacillin/Tazobactam 2.25 GM in Sodium Chloride 0.9% 100 ML IVPB SCH ×3 (04:02→20:21)
[2019-12-20 04:08] LABS: ALT (SGPT) 60 U/L (8-55); AST (SGOT) 50 U/L (5-34); Alkaline Phosphatase 60 U/L (40-110); Anion Gap 31 mmol/L (10-20); Bilirubin, Total 0.8 mg/dL (0.2-1.2); Calc. Creatinine Clearance 0 mL/min (70-130); Calcium 6.9 mg/dL (7.8-10.44); Carbon Dioxide 12 mmol/L (22-29); Chloride 105 mmol/L (98-107); Estimated GFR-MDRD 8; Globulin 4.1 g/dL (2.4-3.5); Glucose 166 mg/dL (70-105); Protein, Total 7.1 g/dL (6.0-8.3); Sodium 141 mmol/L (136-145)
[2019-12-20 04:12] LABS: Potassium 6.9 mmol/L (3.5-5.1)
[2019-12-20 04:20] LABS: BUN (Urea Nitrogen) 159 mg/dL (8.9-20.6)
[2019-12-20] MEDS: methylPREDNISolone Sod Succ 40 MG VIAL IVP SCH ×4 (05:11→21:17)
[2019-12-20] MEDS: fentaNYL Citrate/PF 2,000 MCG in Sodium Chloride 0.9% 60 ML IV SCH (06:58)
[2019-12-20] MEDS ORDERED: Heparin 10,000 UNITS/ 10 ML VIAL ONE (09:05)
[2019-12-20] MEDS ORDERED: Dextrose 50% Abboject 50 ML SYRINGE SLOW IVP PRN (09:05)
[2019-12-20] MEDS ORDERED: Calcium Gluconate 4.6 MEQ in Sodium Chloride 0.9% 100 ML IVPB SCH ×2 (09:05→12:15)
[2019-12-20] MEDS ORDERED: Insulin Regular 300 UNITS/3 ML VIAL IVP SCH (09:15)
[2019-12-20] MEDS: Pantoprazole 40 MG VIAL IVP SCH (09:21)
--- NOTE | 2019-12-20 10:07 | PRG ---
DATE OF SERVICE: 12/20/2019 SUBJECTIVE: Alanis Kay this morning remains unresponsive in the ICU. He is on fentanyl and Diprivan. OBJECTIVE: VITAL SIGNS: His respiratory rate is about 30. His temperature is 97. Blood pressure 137/93, pulse 83. CHEST: Rhonchi. CARDIAC: Normal S1 and S2. No gallops. ABDOMEN: No masses. LABORATORY DATA: I discontinued all his labs. [facility] has recently ordered the lab on the patient. His white count is 29,000. His creatinine and BUN are elevated. ASSESSMENT: Multiorgan failure, renal failure, cerebrovascular accident, pontine hemorrhage, locked-in syndrome, acute respiratory distress syndrome. PLAN: 1. Comfort care. 2. Not much else to add at this time. Job ID: [id number]
[2019-12-20 10:16] LABS: Vancomycin, Random 21.7 ug/mL (See Comment)
[2019-12-20] MEDS: Dextrose 5% in Water 1,000 ML IV SCH (11:20)
[2019-12-20] MEDS ORDERED: Sodium Bicarb 50 MEQ/50 ML Abboject 8.4% SYRINGE IVP SCH (12:15)
--- NOTE | 2019-12-20 12:45 | PRG ---
DATE OF SERVICE: SUBJECTIVE: This is a 34-year-old gentleman, who I saw yesterday and the family did not want to pursue dialysis, but this morning I was called when the family decided to get dialysis again. The patient's potassium is 6.9, bicarbonate is 12, so I am seeing the patient again. PHYSICAL EXAMINATION: General: The patient is resting and comatose. Vital Signs: Afebrile, pulse 80, breathing at 25, blood pressure 140/93. HEENT: Head normocephalic and atraumatic. Eyes intact, no ulcers. Nose intact, no ulcers. Ears intact, no ulcers. Neck: Supple. No JVD. Chest: Symmetrical and clear. Cardiovascular: Shows S1 and S2, no rub, no murmur. Gastrointestinal: Abdomen is soft, bowel sounds positive. Extremities: Show no edema or ulcers. Skin: Shows no rash or petechiae. Musculoskeletal: Shows no joint swelling or stiffness. Genitourinary: Shows no Rob or CVA tenderness. Neurologic: The patient is comatose. ASSESSMENT AND RECOMMENDATION: Acute kidney injury with progressive chronic kidney disease. We will plan dialysis. Overall, the patient is a poor candidate due to underlying multiple comorbidities. Risks versus benefits of dialysis were discussed and dialysis will be initiated. Hyperkalemia, plan dialysis. Metabolic acidosis, we will give sodium bicarbonate and calcium gluconate. Uremia, plan dialysis. Overall prognosis is poor. I would recommend an ethics consult. Job ID: [id number]
--- NOTE | 2019-12-20 13:55 | RAD ---
Chest one view HISTORY: Pneumonia. Follow-up. COMPARISON: 12/19/2019. FINDINGS: Cardiac silhouette is magnified by projection. Lungs are now well and aerated. No significa nt residual infiltrate. Mediastinum is midline with tracheostomy appliance in place. IMPRESSION : Complete resolution of upper lobe infiltrates. No new abnormalities are demonstrated.
[2019-12-20 17:31] LABS: HBSAg Index 0.15 S/CO (0-0.99); Hep B Surf Ag Non-Reactive S/CO (NonReactive)
--- NOTE | 2019-12-20 18:01 | PDOC.HOSPP ---
- Subjective Encounter Date: 12/20/19 Encounter Time: 11:00 Subjective: The patient is still intubated. Does not follow any commands. Spoke to sister today who stated she had changed her mind about dialysis and wanted to try 1-2 sessions to see if it would make him more comfortable breathing luo. She understood risks of endocarditis, retroperitoneal hemorrhage , embolism and understood he would not be candidate for surgery if he were to bleed. She does not want to extubate him She understands his body is shutting down but she wants to have tried everything she could to avoid feeling guilt before giving up. I explained that mental status will not improve given severe brain bleed but she still has hope She is agreeable to keep him comfortable if here were to get worst and decline rapidliy - Objective Vital Signs & Weight: Vital Signs (12 hours) Pulse Resp Pulse Ox 12/20/19 14:27 81 12/20/19 14:00 50 H 12/20/19 12:00 50 H 12/20/19 10:23 78 12/20/19 10:00 50 H 12/20/19 08:00 50 H 84 L 12/20/19 07:43 71 12/20/19 06:00 25 H Weight Admit Weight 328 lb Weight 317 lb 7.45 oz Most Recent Monitor Data Heart Rate from ECG 81 NIBP 124/75 NIBP BP-Mean 91 Respiration from ECG 14 SpO2 87 I&O: 12/19/19 12/20/19 12/21/19 06:59 06:59 06:59 Intake Total 3357.3 2704.1 Output Total 312 1293 60 Balance 3045.3 1411.1 -60 Result Diagrams: 12/20/19 03:08 12/20/19 03:08 Additional Labs: Accuchecks 12/19/19 21:46 POC Glucose 173 H Hospitalist ROS - Review of Systems Constitutional: denies: fever, chills - Medication Medications: Active Medications Generic Name Dose Route Start Last Admin Trade Name Freq PRN Reason Stop Dose Admin Acetaminophen 650 mg 12/12/19 12:15 12/17/19 16:25 Acetaminophen 325 Mg Tab PO 650 mg Q6H PRN Administration Fever > 101 or Headache Dextrose/Water 25 gm 12/20/19 09:05 12/20/19 10:25 Dextrose 50% Abboject 50 Ml Syringe SLOW IVP 12/20/19 23:00 25 gm ONE PRN Administration Hypoglycemia Levetiracetam 500 mg/ Device 100 mls @ 200 mls/hr 12/12/19 21:00 12/20/19 09:20 IVPB 100 mls BID CHRIS Administration Fentanyl Citrate 2,000 mcg/ 100 mls @ 0 mls/hr 12/12/19 14:15 12/20/19 06:58 Sodium Chloride IV 01/11/20 14:15 100 mls INF CHRIS Administration Protocol Per Protocol Nicardipine HCl 50 mg/ Sodium 250 mls @ 0 mls/hr 12/12/19 20:46 12/18/19 20:18 Chloride IVPB 250 mls INF PRN Administration SBP > 140 Protocol Titrate Piperacillin Sod/Tazobactam 100 mls @ 200 mls/hr 12/16/19 20:00 12/20/19 11:18 Sod 2.25 gm/ Sodium Chloride IVPB 100 mls 0400,1200,2000 CHRIS Administration Dextrose/Water 1,000 mls @ 30 mls/hr 12/18/19 12:15 12/20/19 11:20 D5w IV 1,000 mls .Q24H CHRIS Administration Levofloxacin 750 mg/ Device 150 mls @ 100 mls/hr 12/19/19 15:00 12/20/19 17:50 IVPB 150 mls Q24HR CHRIS Administration Labetalol HCl 10 mg 12/12/19 12:15 12/18/19 15:15 Labetalol Hcl 100 Mg/20 Ml Vial SLOW IVP 10 mg Q2H PRN Administration SBP > 140 Lorazepam 2 mg 12/12/19 14:15 12/18/19 23:44 Lorazepam 2 Mg/Ml Vial SLOW IVP 01/11/20 14:15 2 mg Q1H PRN Administration Breakthrough agitation Methylprednisolone Sodium Succinate 40 mg 12/16/19 12:00 12/20/19 17:49 Methylprednisolone Sod Succ 40 Mg Vial IVP 40 mg Q6HR CHRIS Administration Morphine Sulfate 2 mg 12/12/19 14:15 12/19/19 00:08 Morphine 2 Mg/Ml Vial SLOW IVP 01/11/20 14:15 2 mg Q1H PRN Administration Breakthrough Pain/Agitation Pantoprazole Sodium 40 mg 12/13/19 09:00 12/20/19 09:21 Pantoprazole 40 Mg Vial IVP 40 mg DAILY CHRIS Administration Propofol 1,000 mg 12/12/19 14:15 12/20/19 13:45 Propofol 1,000 Mg/100 Ml Vial IV 01/11/20 14:15 1,000 mg INF PRN Administration TO ACHIEVE GOAL RASS Protocol Sodium Chloride 10 ml 12/12/19 12:15 12/16/19 08:57 Flush - Normal Saline 10 Ml Syringe IVF 10 ml PRN PRN Administration Saline Flush - Exam General - other findings: intubated Eye - other findings: pinpoint pupils. No corneal reflex Heart: RRR, no murmur, no gallops, no rubs Respiratory - other findings: improvement in rales Gastrointestinal: soft, non-tender, non-distended Extremities: 2+ LE edema Skin: normal turgor, no lesions, no rashes Skin - other findings: face appears pale and clammy Neurological - other findings: does not follow commands. No gag reflex Psychiatric: lethargic Hosp A/P - Plan Chest X ray 12/18: worsening consolidation in each upper lobe CT brain 12/11: 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 CT brain 12/13: stable pontine hemorrhage Chest X ray 12/19: complete resolution of upper lobe infiltrates This is a 34 year old male who presetned with hypertensive emergency and admitted for hemorrhagic stroke. Intubated and has bilateral pneumonia #Acute encephalopathy secondary to hypertensive emergency with hemorrhagic stroke - presented with a BP Of 250/123. CT scan of the brain show large central pontine hemorrhage. Repeat CT 12/14 is stable - neurosurgery recommended no intervention - he is off nicardipine drip currently - he is on mild sedation, but off sedation does not follow commands. He has no corneal or gag reflex. Poor prognosis neurologically - continue kera for seizure prophylaxis - 12/19: explained to sister he may be brain but cannot do definitive testing for that due to respiratory status #Acute hypoxic respiratory failure secondary to bilateral pneumonia and volume overload - he is on IV vancomycin and zosyn. Levaquin IV added 12/19. WBC improved to 29. Repeat chest X ray 12/19 shows complete resolution of infiltrates - will repeat ABG today . He is still on ventilator and not weanable due to mental status - wean steroids to 20 mg IV q6 hours #Hyperkalemia #Acute renal failure - potassium up to 7 this morning. He was given insulin, dextrose, kayexelate and calcium gluconate again this morning. Started on dialysis - recheck potassium after dialysis #Leukocytosis - WBC improved to 29. Continue vancomycin, zosyn and levaquin Hypernatremia - resolved, sodium down to 144 Anemia - Hb 11, likely from brain bleed and anemia of chronic disease. TSh normal Code status: DNR
--- NOTE | 2019-12-20 19:27 | OP ---
DATE OF PROCEDURE: 12/20/2019 PREOPERATIVE DIAGNOSIS: Renal failure with high potassium. POSTOPERATIVE DIAGNOSIS: Renal failure with high potassium. PROCEDURE PERFORMED: Right femoral Trialysis catheter placement. ANESTHESIA: Local. ESTIMATED BLOOD LOSS: 100 mL. COMPLICATIONS: None, although was very difficult given his body habitus. DESCRIPTION OF PROCEDURE: The patient was taken to the operating room and laid supine on the operating room table. After the right groin was shaved, prepped, and draped in a sterile fashion, local anesthetic was infiltrated over the right femoral vein. Femoral vein was cannulated using a Seldinger needle. Wire was passed under no tension. The wire was used as a guide to dilate the femoral vein at first attempt at passing the Trialysis catheter was unsuccessful given the deep nature of his vein, the angle of the wire going into the vein, so the Trialysis had to be backed to back out and the groin was dilated. The femoral vein was dilated even more. Finally, the Trialysis catheter was able to be threaded to its fullest extent. All ports were flushed and cassidy blood without difficulties, flushed with a saline solution. The Trialysis was sutured to the skin of the groin using close nylon. Sterile dressings were placed. The patient will undergo emergent immediate dialysis. Job ID: [id number]
[2019-12-20 22:15] LABS: Vancomycin, Random 14.1 ug/mL (See Comment)
[2019-12-20 23:04] LABS: Anion Gap 25 mmol/L (10-20); BUN (Urea Nitrogen) 114 mg/dL (8.9-20.6); Calc. Creatinine Clearance 35 mL/min (70-130); Calcium 7.1 mg/dL (7.8-10.44); Carbon Dioxide 18 mmol/L (22-29); Chloride 100 mmol/L (98-107); Estimated GFR-MDRD 11; Glucose 149 mg/dL (70-105); Potassium 4.4 mmol/L (3.5-5.1); Sodium 139 mmol/L (136-145)
[2019-12-20] MEDS ORDERED: Vancomycin 1 GM in Premix Bag 1 BAG IVPB SCH (23:59)
[2019-12-21] MEDS: fentaNYL Citrate/PF 2,000 MCG in Sodium Chloride 0.9% 60 ML IV SCH ×2 (03:03→21:35)
[2019-12-21] MEDS: Piperacillin/Tazobactam 2.25 GM in Sodium Chloride 0.9% 100 ML IVPB SCH (03:51)
[2019-12-21] MEDS: Propofol 1,000 MG/100 ML VIAL IV PRN ×6 (03:57→21:58)
[2019-12-21 03:58] LABS: Hemoglobin 9.1 g/dL (14.0-18.0); Mean Corpuscular HGB CONC 35.3 g/dL (32.0-36.0); Mean Corpuscular Hemoglobin 31.8 pg (27.0-31.0); Mean Corpuscular Volume 90.1 fL (78.0-98.0); Mean Platelet Volume 9.2 fL (7.4-10.4); Platelet Count 214 thou/uL (130-400); RBC Distribution Width 12.6 % (11.5-14.5); Red Blood Cell (RBC) Count 2.86 mill/uL (4.70-6.10); White Blood Cell (WBC) Count 19.6 thou/uL (4.8-10.8)
[2019-12-21 04:15] LABS: ALT (SGPT) 48 U/L (8-55); AST (SGOT) 31 U/L (5-34); Albumin 2.7 g/dL (3.5-5.0); Alkaline Phosphatase 54 U/L (40-110); Anion Gap 25 mmol/L (10-20); Bilirubin, Total 0.8 mg/dL (0.2-1.2); Calc. Creatinine Clearance 31 mL/min (70-130); Calcium 6.7 mg/dL (7.8-10.44); Carbon Dioxide 17 mmol/L (22-29); Chloride 100 mmol/L (98-107); Estimated GFR-MDRD 9; Globulin 3.2 g/dL (2.4-3.5); Glucose 170 mg/dL (70-105); Potassium 4.2 mmol/L (3.5-5.1); Protein, Total 5.9 g/dL (6.0-8.3); Sodium 138 mmol/L (136-145)
[2019-12-21 04:29] LABS: BUN (Urea Nitrogen) 118 mg/dL (8.9-20.6)
[2019-12-21] MEDS: methylPREDNISolone Sod Succ 40 MG VIAL IVP SCH ×3 (05:47→21:00)
[2019-12-21] MEDS ORDERED: Heparin 10,000 UNITS/ 10 ML VIAL ONE (08:52)
[2019-12-21] MEDS: Pantoprazole 40 MG VIAL IVP SCH (08:55)
--- NOTE | 2019-12-21 09:17 | RAD ---
XR Chest 1 View Portable History: Intubated Comparison: Radiograph prior day Findings: Tracheostomy and patient is present. Extensive airspace opacities throughout the lungs. No pneumothorax. No effusion. No acute osseous abnormality. Enteric tube tip below diaphragm although out of field of view. Impression: New severe airspace opacification throughout the lungs from the comparison examination hi story. Given this rapid increase, atypical pulmonary edema versus atelectasis is favored. ARDS is also a possibility.
--- NOTE | 2019-12-21 10:12 | PRG ---
DATE OF SERVICE: 12/21/2019 SUBJECTIVE: Alanis Kay is a 34-year-old morbidly obese gentleman, who this morning is off all sedation, but still pretty much unresponsive. He is on BiLevel. His sats are slightly improved. X-ray still shows left-sided infiltrate. He has made a DNR. Surprisingly, they agreed for dialysis, which was done yesterday. OBJECTIVE: VITAL SIGNS: His pulse is 68, his blood pressure 139/96, sats temperature 99. CHEST: No wheezing, no crackles. CARDIAC: Normal S1, S2. No gallops. ABDOMEN: Distended, soft. LABORATORY DATA: White count 19,000, H and H 9 and 28, platelet count 214. Creatinine is 6, BUN is 18, and bicarb is 17. ASSESSMENT AND PLAN: Pontine hemorrhage, locked-in syndrome, seizures, encephalopathy, respiratory failure, acute respiratory distress syndrome, renal failure. Supportive care. We discussed with family that once able to dial his vent down, he may be able to be transported for a CT of his head. He had methicillin-resistant Staphylococcus aureus in his lung, on adequate antibiotic. Antibiotics . One-half hour of critical care time. Job ID: [id number]
[2019-12-21] MEDS: Lorazepam 2 MG/ML VIAL SLOW IVP PRN ×5 (10:45→19:17)
[2019-12-21] MEDS: Cefepime 0.5 GM in Sodium Chloride 0.9% 100 ML IVPB SCH ×2 (10:53→21:58)
[2019-12-21] MEDS: Dextrose 5% in Water 1,000 ML IV SCH (10:54)
--- NOTE | 2019-12-21 11:55 | PRG ---
DATE OF SERVICE: 12/21/2019 SUBJECTIVE: The patient is seen in ICU. No family members available. The patient apparently had dialysis yesterday. Family wants to have a few more sessions of dialysis per the nurses, double checking with the family. PHYSICAL EXAMINATION: GENERAL: This is a morbidly obese male, not responding. VITAL SIGNS: Temperature 99.8, pulse 85, respirations 16, blood pressure . CV: S1 and S2 heard. RESPIRATORY: GI: Obese. MUSCULOSKELETAL: 1+ edema. NEUROLOGICAL: Not responding. LABORATORY DATA: Potassium is 4.2, BUN is 118, creatinine is 6.8. ASSESSMENT AND PLAN: 1. Acute kidney injury on chronic kidney disease with no significant improvement in renal function. BUN and creatinine are rising. Plan for dialysis if family agrees. 2. 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 3. History of hypertension. 4. Hyperkalemia, better. 5. Acidosis and morbid obesity. 6. Hypoalbuminemia. Overall prognosis is very poor. We will have dialysis today if family wishes to do so. We will follow. Job ID: [id number]
[2019-12-21] MEDS: Vancomycin 1 GM in Premix Bag 1 BAG IVPB SCH (13:22)
[2019-12-21] MEDS: Acetaminophen 325 MG TAB PO PRN (14:54)
[2019-12-21 16:08] LABS: CO2 Tension 49.3 mmHg (35.0-45.0); pH, Arterial 7.29 (7.35-7.45)
[2019-12-21 16:09] LABS: Actual Bicarbonate (HCO3a) 23.4 mEq/L (22-28); Base Excess (BEa) -3.3 mEq/L (-2.0 to +3.0); Calcium, Ionized (arterial) 0.95 mmol/L (1.12-1.30); Carboxyhemoglobin (COHb) 0.1 gm% (0.0-3.0); Hemoglobin (Hb) 11.2 g/dL (14.0-18.0); Potassium - ABG Lab 4.31 mmol/L (3.70-5.30)
[2019-12-21 16:52] LABS: O2 Tension (PaO2), arterial 55.4 mmHg (80.0-100.0)
[2019-12-21 16:53] LABS: ALV-art Gradient 489.025 mmHg (0-20); Puncture Site RRA
--- NOTE | 2019-12-21 18:18 | PDOC.HOSPP ---
- Subjective Encounter Date: 12/21/19 Encounter Time: 09:00 Subjective: The patient is unresponsive still. SEdation was weaned off and he followed no commands. He had dys-synchronous ventilation so had to be put back on sedation He did receive dialysis today. Vent settings were adjusted. Repeat ABG shows some improvement with pH to 7.2 - Objective Vital Signs & Weight: Vital Signs (12 hours) Temp Pulse Resp BP Pulse Ox 12/21/19 18:11 80 153/97 H 12/21/19 17:57 27 H 12/21/19 15:25 31 H 12/21/19 15:15 69 157/95 H 12/21/19 14:00 32 H 12/21/19 12:00 36 H 12/21/19 10:49 87 155/91 H 12/21/19 10:00 32 H 12/21/19 08:24 61 134/90 12/21/19 08:00 99.8 F H 25 H 94 L Weight Admit Weight 328 lb Weight 330 lb 11.094 oz Most Recent Monitor Data Heart Rate from ECG 82 NIBP 153/97 NIBP BP-Mean 115 Respiration from ECG 25 SpO2 96 I&O: 12/20/19 12/21/19 12/22/19 06:59 06:59 06:59 Intake Total 2704.1 1616 1148.7 Output Total 1293 240 545 Balance 1411.1 1376 603.7 Result Diagrams: 12/21/19 03:33 12/21/19 03:33 Hospitalist ROS - Medication Medications: Active Medications Generic Name Dose Route Start Last Admin Trade Name Freq PRN Reason Stop Dose Admin Acetaminophen 650 mg 12/12/19 12:15 12/21/19 14:54 Acetaminophen 325 Mg Tab PO 650 mg Q6H PRN Administration Fever > 101 or Headache Levetiracetam 500 mg/ Device 100 mls @ 200 mls/hr 12/12/19 21:00 12/21/19 08:55 IVPB 100 mls BID CHRIS Administration Fentanyl Citrate 2,000 mcg/ 100 mls @ 0 mls/hr 12/12/19 14:15 12/21/19 03:03 Sodium Chloride IV 01/11/20 14:15 100 mls INF CHRIS Administration Protocol Per Protocol Nicardipine HCl 50 mg/ Sodium 250 mls @ 0 mls/hr 12/12/19 20:46 10/09/20 20:18 Chloride IVPB 250 mls INF PRN Administration SBP > 140 Protocol Titrate Dextrose/Water 1,000 mls @ 30 mls/hr 12/18/19 12:15 12/21/19 10:54 D5w IV 1,000 mls .Q24H CHRIS Administration Levofloxacin 750 mg/ Device 150 mls @ 100 mls/hr 12/19/19 15:00 12/21/19 15: 30 IVPB 150 mls Q24HR CHRIS Administration Cefepime HCl 0.5 gm/ Sodium 100 mls @ 200 mls/hr 12/21/19 11:00 12/21/19 10:53 Chloride IVPB 100 mls Q12H CHRIS Administration Labetalol HCl 10 mg 12/12/19 12:15 12/18/19 15:15 Labetalol Hcl 100 Mg/20 Ml Vial SLOW IVP 10 mg Q2H PRN Administration SBP > 140 Lorazepam 2 mg 12/12/19 14:15 12/21/19 17:37 Lorazepam 2 Mg/Ml Vial SLOW IVP 01/11/20 14:15 2 mg Q1H PRN Administration Breakthrough agitation Methylprednisolone Sodium Succinate 20 mg 12/20/19 22:00 12/21/19 14:49 Methylprednisolone Sod Succ 40 Mg Vial IVP 20 mg Q8HR CHRIS Administration Morphine Sulfate 2 mg 12/12/19 14:15 12/19/19 00:08 Morphine 2 Mg/Ml Vial SLOW IVP 01/11/20 14:15 2 mg Q1H PRN Administration Breakthrough Pain/Agitation Pantoprazole Sodium 40 mg 12/13/19 09:00 12/21/19 08:55 Pantoprazole 40 Mg Vial IVP 40 mg DAILY CHRIS Administration Propofol 1,000 mg 12/12/19 14:15 12/21/19 14:49 Propofol 1,000 Mg/100 Ml Vial IV 01/11/20 14:15 1,000 mg INF PRN Administration TO ACHIEVE GOAL RASS Protocol Sodium Chloride 10 ml 12/12/19 12:15 12/16/19 08:57 Flush - Normal Saline 10 Ml Syringe IVF 10 ml PRN PRN Administration Saline Flush - Exam General - other findings: trach in place Eye - other findings: pinpoint pupils Neck: no JVD Heart: RRR, no murmur, no gallops, no rubs Respiratory: rales Gastrointestinal: soft, non-tender, non-distended Extremities: 2+ LE edema Skin: normal turgor, no lesions, no rashes Skin - other findings: flushed face and clammy skin Neurological - other findings: no gag or corneal reflex Musculoskeletal: normal tone, normal strength, no muscle wasting Hosp A/P - Plan Chest X ray 12/18: worsening consolidation in each upper lobe CT brain 12/11: 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 CT brain 12/13: stable pontine hemorrhage Chest X ray 12/19: complete resolution of upper lobe infiltrates Chest X Xray 12/20: new severe airspace consolidation, appears worst on left. This is a 34 year old male who presetned with hypertensive emergency and admitted for hemorrhagic stroke. Intubated and has bilateral pneumonia #Acute encephalopathy secondary to hypertensive emergency with hemorrhagic stroke - presented with a BP Of 250/123. CT scan of the brain show large central pontine hemorrhage. Repeat CT 12/14 is stable - neurosurgery recommended no intervention . Family wants to repeat CT head, but currently not stable enough to do that - continue keppra - likely is close to brain , poor prognosis #Acute hypoxic respiratory failure secondary to bilateral pneumonia and volume overload - he is on IV vancomycin and zosyn. Levaquin IV added 12/19. WBC improved to 19. Repeat chest X ray 12/19 shows complete resolution of infiltrates, but chest X ray today shows recurrence of opacity, worst on left side - bronchoscopy cultures grew MRSA and E coli (sensitive to zosyn) - antibiotics switched to cefepime by pulmonary - steroids weaned to 20 mg IV q8 hours #Acute renal failure - continue with dialysis today for comfort measures Hyperkalemia - resolved Hypernatremia - resolved, sodium down to 144 Anemia - Hb down to 9.1, possibly from brain bleed and anemia of chronic disease. TSh normal . Unable to repeat head CT today Dispo: poor prognosis, treating comfortably Code status: DNR
[2019-12-21 23:14] LABS: Vancomycin, Random 17.5 ug/mL (See Comment)
[2019-12-21] MEDS ORDERED: Vancomycin HCl 750 MG in Sodium Chloride 0.9% 250 ML 250 ML IVPB SCH (23:59)
[2019-12-22] MEDS: Propofol 1,000 MG/100 ML VIAL IV PRN ×4 (00:14→12:48)
[2019-12-22] MEDS: Lorazepam 2 MG/ML VIAL SLOW IVP PRN (01:09)
[2019-12-22] MEDS: methylPREDNISolone Sod Succ 40 MG VIAL IVP SCH ×3 (05:11→21:44)
[2019-12-22] MEDS: Labetalol HCl 100 MG/20 ML VIAL SLOW IVP PRN (08:35)
[2019-12-22] MEDS: Pantoprazole 40 MG VIAL IVP SCH (08:37)
[2019-12-22] MEDS ORDERED: Cefepime 0.5 GM, Admixture Fee 1 EACH in Sodium Chloride 0.9% 100 ML IVPB SCH (08:45)
--- NOTE | 2019-12-22 09:51 | PRG ---
DATE OF SERVICE: 12/22/2019 SUBJECTIVE: Alanis Kay is a 34-year-old gentleman, who remains on the vent, off sedation. OBJECTIVE: VITAL SIGNS: Pulse 77, blood pressure 159/98, respiratory rate 27, saturations are 95% on 85%, PEEP of 13. CHEST: Anterior rhonchi. CARDIAC: Normal S1, S2. No gallops. LABORATORY DATA: Blood gas was ordered yesterday, pO2 is 55, pCO2 85%, PEEP of 13. X-ray showed bilateral infiltrates. No additional lab was ordered. ASSESSMENT AND PLAN: Multiorgan failure, pontine hemorrhage, locked-in syndrome, renal failure, aspiration pneumonia, morbid obesity. I discussed with the patient's sister, Alanis Peterson, [phone]. She is a power of ip technology transactions attorney. They are going to come over here today to make additional recommendations. He is not weanable. Continue with supportive care. One-half hour of critical care time. Job ID: [id number]
--- NOTE | 2019-12-22 11:44 | PRG ---
DATE OF SERVICE: 12/22/2019 SUBJECTIVE: The patient is seen and examined in ICU. No family members available. The patient is not responding and he had dialysis yesterday, tolerated it well. OBJECTIVE: GENERAL: This is a morbidly obese male, not responding and ventilated. VITAL SIGNS: Temperature 100.8, pulse 76, respiratory rate 20, and blood pressure 170/99. CHEST: Clear anteriorly. CVS: S1 and S2 heard. GASTROINTESTINAL: Obese. MUSCULOSKELETAL: 1+ edema. NEUROLOGICAL: Not responsive. LABORATORY DATA: No labs done today. ASSESSMENT AND PLAN: 1. Acute kidney injury on chronic kidney disease with no significant neurological improvement and poor prognosis per Neurosurgical Team. The patient had 2 dialyses, which is not helping his mentation either and I hear that the plan is to have family meeting later this evening. 2. Pontine hemorrhage with very poor prognosis. 3. Altered mentation. 4. History of hypertension. 5. Acidosis and morbid obesity. 6. Hypoalbuminemia. It seems like his overall neurological prognosis is poor. No benefit in doing dialysis if he carries a very poor prognosis. He is tolerating dialysis so far, but no acute indication for dialysis. Monitor labs if family wishes to do. We will continue discussion with the family. We will follow the case along with other specialists. Job ID: [id number]
[2019-12-22] MEDS: fentaNYL Citrate/PF 2,000 MCG in Sodium Chloride 0.9% 60 ML IV SCH (11:46)
[2019-12-22] MEDS: Dextrose 5% in Water 1,000 ML IV SCH (14:43)
--- NOTE | 2019-12-22 15:21 | PDOC.HOSPP ---
- Subjective Encounter Date: 12/22/19 Encounter Time: 10:00 Subjective: The patient still has trach in place. He is still not responsive to commands. He has been off sedation but his respiratory rate would go up to 50 when weaned off sedation Family decided not to dialysis today. There is family meeting supposedly happening before 5 pm - Objective Vital Signs & Weight: Vital Signs (12 hours) Temp Pulse Resp BP Pulse Ox 12/22/19 14:00 100.2 F H 28 H 12/22/19 13:42 72 141/88 H 12/22/19 13:00 100.4 F H 12/22/19 12:00 25 H 12/22/19 11:00 100.8 F H 12/22/19 10:42 75 12/22/19 10:00 25 H 12/22/19 09:00 100.2 F H 12/22/19 07:40 27 H 94 L 12/22/19 07:30 77 159/98 H 12/22/19 06:00 25 H 12/22/19 04:00 99.7 F H 25 H Weight Admit Weight 328 lb Weight 328 lb 7.82 oz Most Recent Monitor Data Heart Rate from ECG 72 NIBP 140/88 NIBP BP-Mean 105 Respiration from ECG 26 SpO2 99 I&O: 12/21/19 12/22/19 12/23/19 06:59 06:59 06:59 Intake Total 1616 2344.7 Output Total 240 639 400 Balance 1376 1705.7 -400 Result Diagrams: 12/21/19 03:33 12/21/19 03:33 Hospitalist ROS - Review of Systems ROS unobtainable: due to mental status - Medication Medications: Active Medications Generic Name Dose Route Start Last Admin Trade Name Freq PRN Reason Stop Dose Admin Acetaminophen 650 mg 12/12/19 12:15 12/21/19 14:54 Acetaminophen 325 Mg Tab PO 650 mg Q6H PRN Administration Fever > 101 or Headache Levetiracetam 500 mg/ Device 100 mls @ 200 mls/hr 12/12/19 21:00 12/22/19 08:37 IVPB 100 mls BID CHRIS Administration Nicardipine HCl 50 mg/ Sodium 250 mls @ 0 mls/hr 12/12/19 20:46 12/18/19 20:18 Chloride IVPB 250 mls INF PRN Administration SBP > 140 Protocol Titrate Dextrose/Water 1,000 mls @ 30 mls/hr 12/18/19 12:15 12/22/19 14:43 D5w IV 1,000 mls .Q24H CHRIS Administration Labetalol HCl 10 mg 12/12/19 12:15 12/22/19 08:35 Labetalol Hcl 100 Mg/20 Ml Vial SLOW IVP 10 mg Q2H PRN Administration SBP > 140 Methylprednisolone Sodium Succinate 20 mg 12/20/19 22:00 12/22/19 14:43 Methylprednisolone Sod Succ 40 Mg Vial IVP 20 mg Q8HR CHRIS Administration Pantoprazole Sodium 40 mg 12/13/19 09:00 12/22/19 08:37 Pantoprazole 40 Mg Vial IVP 40 mg DAILY CHRIS Administration Propofol 1,000 mg 12/12/19 14:15 12/22/19 12:48 Propofol 1,000 Mg/100 Ml Vial IV 01/11/20 14:15 1,000 mg INF PRN Administration TO ACHIEVE GOAL RASS Protocol Sodium Chloride 10 ml 12/12/19 12:15 12/16/19 08:57 Flush - Normal Saline 10 Ml Syringe IVF 10 ml PRN PRN Administration Saline Flush - Exam General - other findings: Trach in place. Lethargic, not following commands Eye - other findings: pinpoint pupils Neck: no JVD Heart: RRR, no murmur, no gallops, no rubs Respiratory: rales Gastrointestinal: soft, distended Extremities: 2+ LE edema Skin: normal turgor, no lesions, no rashes Neurological - other findings: does not follow commands off sedation Musculoskeletal: normal tone, normal strength, no muscle wasting Hosp A/P - Plan Chest X ray 12/18: worsening consolidation in each upper lobe CT brain 12/11: 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 CT brain 12/13: stable pontine hemorrhage Chest X ray 12/19: complete resolution of upper lobe infiltrates Chest X Xray 12/20: new severe airspace consolidation, appears worst on left. This is a 34 year old male who presetned with hypertensive emergency and admitted for hemorrhagic stroke. Intubated and has bilateral pneumonia #Acute encephalopathy secondary to hypertensive emergency with hemorrhagic stroke - presented with a BP Of 250/123. CT scan of the brain show large central pontine hemorrhage. Repeat CT 12/14 is stable - neurosurgery recommended no intervention . Family wants to repeat CT head, but currently not stable enough to do that - continue keppra - he is not responsive off of sedation . Family meeting to be held regarding goals of care, appreciate palliative input - likely is close to brain , poor prognosis #Acute hypoxic respiratory failure secondary to bilateral pneumonia and volume overload #Acute respiratory acidosis - he was on vancomycin, zosyn and levaquin. Levaquin IV added 12/19. Chest X ray 12/19 showed resolution of infiltrate, but repeat chest X ray 12/20 showed new severe airspace consolidation , worst on the left - Antibiotics switched to cefepime 12/20. Bronch cultures grew MRSA and E coli sensitive to zosyn - repeat CBC today. Continue cefepime for now and steroids (20 mg IV q8 hours - very poor prognosis #Acute renal failure - received dialysis 12/19 and 12/20 - repeat BMP Hyperkalemia - resolved Hypernatremia - resolved, sodium down to 144 Anemia - Hb down to 9.1, possibly from brain bleed and anemia of chronic disease. TSh normal . Unable to repeat head CT today Dispo: poor prognosis, treating comfortably Code status: DNR
--- NOTE | 2019-12-22 18:42 | PDOC.EVN ---
Event Note - Event Note Event Note: Spoke to patient's sister about daily labs and X ray. She understands that Xray will continue to get worst without dialysis and potassium and creatinine will continue to get worst. SHe understands no changes in management will likely be made based off these results. However she would like to know for her own sanity what was occurring if he were to pass away She does not want these orders discontinued without her consent
[2019-12-22 18:58] LABS: Hemoglobin 8.8 g/dL (14.0-18.0); Mean Corpuscular HGB CONC 35.2 g/dL (32.0-36.0); Mean Corpuscular Hemoglobin 31.6 pg (27.0-31.0); Mean Corpuscular Volume 89.8 fL (78.0-98.0); Mean Platelet Volume 8.6 fL (7.4-10.4); Platelet Count 200 thou/uL (130-400); RBC Distribution Width 12.9 % (11.5-14.5); Red Blood Cell (RBC) Count 2.79 mill/uL (4.70-6.10); White Blood Cell (WBC) Count 22.1 thou/uL (4.8-10.8)
[2019-12-22 19:21] LABS: Anion Gap 29 mmol/L (10-20); Calc. Creatinine Clearance 27 mL/min (70-130); Calcium 6.3 mg/dL (7.8-10.44); Carbon Dioxide 16 mmol/L (22-29); Chloride 95 mmol/L (98-107); Estimated GFR-MDRD 8; Glucose 134 mg/dL (70-105); Potassium 5.3 mmol/L (3.5-5.1); Sodium 135 mmol/L (136-145)
[2019-12-22 19:33] LABS: BUN (Urea Nitrogen) 137 mg/dL (8.9-20.6)
--- NOTE | 2019-12-22 20:17 | RAD ---
PORTAA[place] CHEST: Date: 12/22/2019 COMPARISON: Prior day's study. HISTORY: Respiratory distress. Intubation. FINDINGS: Tracheostomy tube and NG tubes are present. The tip of the NG tube is difficult to visualize due to t echnique. There has been no definite improvement in the interstitial alveolar lung changes. The rapid ity of the change would suggest that this is at least partially related to resolving edema. IMPRESSION: Fairly pronounced improvement to the interstitial alveolar lung change suggesting some resolving artie aPam POS: MARCO
[2019-12-22] MEDS: Cefepime 0.5 GM, Admixture Fee 1 EACH in Sodium Chloride 0.9% 100 ML IVPB SCH (21:45)
[2019-12-23 04:30] LABS: Hemoglobin 8.8 g/dL (14.0-18.0); Mean Corpuscular HGB CONC 34.7 g/dL (32.0-36.0); Mean Corpuscular Volume 89.4 fL (78.0-98.0); Mean Platelet Volume 8.8 fL (7.4-10.4); Platelet Count 209 thou/uL (130-400); RBC Distribution Width 12.9 % (11.5-14.5); Red Blood Cell (RBC) Count 2.83 mill/uL (4.70-6.10); White Blood Cell (WBC) Count 20.8 thou/uL (4.8-10.8)
[2019-12-23 04:49] LABS: Anion Gap 28 mmol/L (10-20); Calc. Creatinine Clearance 24 mL/min (70-130); Calcium 6.2 mg/dL (7.8-10.44); Carbon Dioxide 17 mmol/L (22-29); Chloride 94 mmol/L (98-107); Estimated GFR-MDRD 7; Glucose 135 mg/dL (70-105); Potassium 5.6 mmol/L (3.5-5.1); Sodium 133 mmol/L (136-145)
[2019-12-23 05:01] LABS: BUN (Urea Nitrogen) 156 mg/dL (8.9-20.6)
[2019-12-23] MEDS: methylPREDNISolone Sod Succ 40 MG VIAL IVP SCH ×3 (06:30→22:35)
--- NOTE | 2019-12-23 08:07 | RAD ---
Portable frontal chest radiograph: 12/23/2019 COMPARISON: 12/22/2019 HISTORY: Ventilated patient FINDINGS: Stable enteric tube and tracheostomy tube. Stable nonspecific hazy bilateral perihilar dens ity noted, left greater than right. No large volume pleural effusion, focal consolidation, or evidence of pneumothorax. IMPRESSION: No significant interval change.
[2019-12-23] MEDS ORDERED: Heparin 10,000 UNITS/ 10 ML VIAL ONE (08:28)
[2019-12-23] MEDS ORDERED: Fentanyl BOLUS 250 ML IVPB PRN (09:21)
[2019-12-23] MEDS ORDERED: Lorazepam 2 MG/ML VIAL SLOW IVP PRN (09:22)
[2019-12-23] MEDS ORDERED: Morphine 2 MG/ML VIAL SLOW IVP PRN (09:22)
[2019-12-23] MEDS: Pantoprazole 40 MG VIAL IVP SCH (09:51)
[2019-12-23] MEDS: Labetalol HCl 100 MG/20 ML VIAL SLOW IVP PRN ×3 (09:52→16:35)
--- NOTE | 2019-12-23 10:37 | PRG ---
DATE OF SERVICE: 12/23/2019 SUBJECTIVE: Alanis Kay is a 34-year-old morbidly obese gentleman, who is status post pontine hemorrhage, status post locked-in syndrome. I spoke to the patient's sister at length, his power of prosecuting attorney. The patient is made a DNR. His x-ray looks better. They decided not to have any more dialysis done, which I clearly agree. The patient's chest x-ray is better this morning. Gases are better, pO2 of 72. OBJECTIVE: VITAL SIGNS: Blood pressure 114/82, sats 97%, switched over from BiLevel to IMV. CHEST: Decreased breath sounds. No wheezing. CARDIAC: Normal S1, S2. No gallops. LABORATORY DATA: Creatinine is 9, BUN 56. White count 20,000, potassium 5.6. X-ray shows improvement in bilateral infiltrates. ASSESSMENT AND PLAN: Locked-in syndrome, worsening renal failure, seizure disorder, and pontine hemorrhage. I have started Reglan, feeding is on hold because resedual. Comfort care. One-half hour of critical care time. Job ID: [id number] MTDD
--- NOTE | 2019-12-23 10:38 | PRG ---
DATE OF SERVICE: 12/23/2019 SUBJECTIVE: The patient was seen and examined at bedside, and I talked with the sister over the phone. The patient remains unresponsive. OBJECTIVE: GENERAL: This is a morbidly obese male, ventilated. VITAL SIGNS: Temperature 99.5, pulse 94, respiratory rate 20, blood pressure 164/100. CHEST: Clear. CV: S1 and S2 heard. GI: Obese. MUSCULOSKELETAL: 1+ edema. NEUROLOGIC: Unresponsive. LABORATORY DATA: Potassium 5.6, BUN is 156, and creatinine is 9.1. ASSESSMENT AND PLAN: 1. Acute kidney injury on chronic kidney disease stage 3, dialysis dependent. Family had discussion with the team yesterday and decided not to have any more dialysis. I did talk with the sister over the phone today and she agreed, so plan is to do no more dialysis due to his poor prognosis. 2. Pontine hemorrhage with very poor prognosis. 3. Altered mentation. 4. Acute hypoxic respiratory failure 5. Morbid obesity. 6. H/o Hypertension 7. Hyperkalemia. 8. Edema Labs are getting worse. Family wants to continue monitor labs and wishes not to have any more dialysis. Family called me back and said they would like to have one more dialysis. Plan to have HD today as tolerated. Advised the family on his prognosis and that dialysis therapy would not be beneficial for his overall clinical improvement. Job ID: [id number] [facility]IT[facility]ind[facility]
[2019-12-23] MEDS: fentaNYL Citrate/PF 2,000 MCG in Sodium Chloride 0.9% 60 ML IV SCH (11:11)
--- NOTE | 2019-12-23 11:55 | PDOC.PALPN ---
Palliative Progress Note - Subjective Intubated with mechanical ventilation, unresponsive. 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 Patient is not and his parents have designated patient sister Kristen as surrogate decision maker. - Objective Vital Signs: Vital Signs - Most Recent Temp Pulse Resp BP Pulse Ox 99.5 F 90 19 166/101 H 100 12/22/19 20:00 12/23/19 11:42 12/23/19 10:00 12/23/19 11:42 12/23/19 08:00 - Physical Exam Constitutional: ill appearing HEENT: moist MMs Respiratory: no wheezing, diminished lung sound Cardiovascular: RRR Gastrointestinal: soft Deviation from normal: obese Genitourinary: ling catheter (poor output) Musculoskeletal: edema present Deviation from normal: No purposeful movement Skin: no lesions, no rash - Assessment (1) Acute renal failure Current Visit: Yes Status: Acute Qualifiers: Acute renal failure type: unspecified Qualified Code(s): N17.9 - Acute kidney failure, unspecified (2) Encephalopathy acute Code(s): G93.40 - ENCEPHALOPATHY, UNSPECIFIED Current Visit: Yes Status: Acute (3) Hypertensive crisis Code(s): I16.9 - HYPERTENSIVE CRISIS, UNSPECIFIED Current Visit: Yes Status: Acute (4) Locked in syndrome Code(s): G83.5 - LOCKED-IN STATE Current Visit: Yes Status: Acute (5) Pontine hemorrhage Code(s): I61.3 - NONTRAUMATIC INTRACEREBRAL HEMORRHAGE IN BRAIN STEM Current Visit: Yes Status: Acute - Plan Plan: Sister confirms no further dialysis and continue with DNAR status. No desire to withdraw care, understanding of terminal situation. Emotional support and therapeutic listening. Spiritual Care involved. [25] minutes spent on this encounter with >50% of the time in counseling and coordination of care. - ROS Non Response: due to endotracheal tube, due to mental status
[2019-12-23] MEDS: Metoclopramide HCl 10 MG/2 ML VIAL IVP SCH ×2 (15:15→22:36)
[2019-12-23] MEDS: Cefepime 0.5 GM, Admixture Fee 1 EACH in Sodium Chloride 0.9% 100 ML IVPB SCH (16:35)
[2019-12-23] MEDS: Dextrose 5% in Water 1,000 ML IV SCH (18:44)
--- NOTE | 2019-12-23 19:18 | PDOC.HOSPP ---
- Subjective Encounter Date: 12/23/19 Encounter Time: 09:00 Subjective: The patient is still on trach. He does not follow commands. He was noted to have a corneal reflex on exam and mild cough reflex per nursing. His sedation was turned back on when respiratory rate went up to 50 Patient had dialysis today after mother stated she wanted dialysis Vent settings changed to SIMV per nursing - Objective Vital Signs & Weight: Vital Signs (12 hours) Pulse Resp BP Pulse Ox 12/23/19 18:49 72 12/23/19 18:00 22 H 12/23/19 16:35 71 159/99 H 12/23/19 16:00 24 H 12/23/19 15:41 61 153/101 H 12/23/19 14:00 26 H 12/23/19 13:28 81 163/101 H 12/23/19 12:00 31 H 12/23/19 11:42 90 166/101 H 12/23/19 10:32 94 175/105 H 12/23/19 10:00 19 12/23/19 09:52 102 H 188/105 H 12/23/19 08:00 25 H 100 12/23/19 07:21 67 147/97 H Weight Admit Weight 328 lb Weight 328 lb 7.82 oz Most Recent Monitor Data Heart Rate from ECG 72 NIBP 158/100 NIBP BP-Mean 119 Respiration from ECG 22 SpO2 97 I&O: 12/22/19 12/23/19 12/24/19 06:59 06:59 06:59 Intake Total 2344.7 1671 683 Output Total 639 450 Balance 1705.7 1221 683 Result Diagrams: 12/23/19 04:05 12/23/19 04:05 Hospitalist ROS - Review of Systems Constitutional: denies: fever, chills - Medication Medications: Active Medications Generic Name Dose Route Start Last Admin Trade Name Freq PRN Reason Stop Dose Admin Acetaminophen 650 mg 12/12/19 12:15 12/21/19 14:54 Acetaminophen 325 Mg Tab PO 650 mg Q6H PRN Administration Fever > 101 or Headache Levetiracetam 500 mg/ Device 100 mls @ 200 mls/hr 12/12/19 21:00 12/23/19 09:50 IVPB 100 mls BID CHRIS Administration Nicardipine HCl 50 mg/ Sodium 250 mls @ 0 mls/hr 12/12/19 20:46 12/18/19 20:18 Chloride IVPB 250 mls INF PRN Administration SBP > 140 Protocol Titrate Dextrose/Water 1,000 mls @ 30 mls/hr 12/18/19 12:15 12/23/19 18:44 D5w IV Not Given .Q24H CHRIS Cefepime HCl 0.5 gm/ 100 mls @ 200 mls/hr 12/22/19 21:00 12/23/19 16:35 Miscellaneous Medication 1 IVPB 100 mls each/ Sodium Chloride 2100 CHRIS Administration Levofloxacin 750 mg/ Device 150 mls @ 100 mls/hr 12/23/19 15:00 12/23/19 17:27 IVPB 150 mls Q2D@1500 CHRIS Administration Fentanyl Citrate 2,000 mcg/ 100 mls @ 0 mls/hr 12/23/19 09:30 12/23/19 11:11 Sodium Chloride IV 100 mls INF CHRIS Administration Protocol Per Protocol Labetalol HCl 10 mg 12/12/19 12:15 12/23/19 16:35 Labetalol Hcl 100 Mg/20 Ml Vial SLOW IVP 10 mg Q2H PRN Administration SBP > 140 Methylprednisolone Sodium Succinate 20 mg 12/23/19 09:00 12/23/19 09:51 Methylprednisolone Sod Succ 40 Mg Vial IVP 20 mg BID CHRIS Administration Metoclopramide HCl 10 mg 12/23/19 14:00 12/23/19 15:15 Metoclopramide Hcl 10 Mg/2 Ml Vial IVP 10 mg Q8HR CHRIS Administration Pantoprazole Sodium 40 mg 12/13/19 09:00 12/23/19 09:51 Pantoprazole 40 Mg Vial IVP 40 mg DAILY CHRIS Administration Propofol 1,000 mg 12/12/19 14:15 12/22/19 12:48 Propofol 1,000 Mg/100 Ml Vial IV 01/11/20 14:15 1,000 mg INF PRN Administration TO ACHIEVE GOAL RASS Protocol Sodium Chloride 10 ml 12/12/19 12:15 12/16/19 08:57 Flush - Normal Saline 10 Ml Syringe IVF 10 ml PRN PRN Administration Saline Flush - Exam General Appearance: NAD, awake alert Eye: PERRL, anicteric sclera ENT: normocephalic atraumatic, no oropharyngeal lesions Neck: no JVD Heart: RRR, no murmur, no gallops, no rubs Respiratory: CTAB, no wheezes, no rales, no ronchi Gastrointestinal: soft, distended Extremities: no cyanosis, no clubbing, no edema Skin: normal turgor, no lesions, no rashes Neurological: cranial nerve grossly intact, normal sensation to touch, no weakness Neurological - other findings: patient doesn't follow commands. Pupils pinpoint. 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 CT brain 12/13: stable pontine hemorrhage Chest X ray 12/19: complete resolution of upper lobe infiltrates Chest X Xray 12/20: new severe airspace consolidation, appears worst on left. This is a 34 year old male who presetned with hypertensive emergency and admitted for hemorrhagic stroke. Intubated and has bilateral pneumonia #Acute encephalopathy secondary to hypertensive emergency with hemorrhagic stroke - presented with a BP Of 250/123. CT scan of the brain show large central pontine hemorrhage. Repeat CT 12/14 is stable - neurosurgery recommended no intervention . - continue keppra - he is not responsive off of sedation . Family wants to continue with care for now, understands no chance patient will regain independence #Acute hypoxic respiratory failure secondary to bilateral pneumonia and volume overload #Acute respiratory acidosis - he was on vancomycin, zosyn and levaquin. Levaquin IV added 12/19. Chest X ray 12/19 showed resolution of infiltrate, but repeat chest X ray 12/20 showed new severe airspace consolidation , worst on the left. - Antibiotics switched to cefepime 12/20. Bronch cultures grew MRSA and E coli sensitive to zosyn - WBC improved to 20 - ventilator settings changed to SIMV #Acute oliguric renal failure - received dialysis 12/19 and 12/20 and dialysis today 12/22 Hyperkalemia - resolved Hypernatremia - resolved, sodium down to 144 Anemia - Hb down to 9.1, possibly from brain bleed and anemia of chronic disease. TSh normal .
[2019-12-24 04:34] LABS: Hemoglobin 9.5 g/dL (14.0-18.0); Mean Corpuscular HGB CONC 36.2 g/dL (32.0-36.0); Mean Corpuscular Volume 88.5 fL (78.0-98.0); Mean Platelet Volume 8.8 fL (7.4-10.4); Platelet Count 240 thou/uL (130-400); RBC Distribution Width 12.8 % (11.5-14.5); Red Blood Cell (RBC) Count 2.97 mill/uL (4.70-6.10); White Blood Cell (WBC) Count 21.1 thou/uL (4.8-10.8)
[2019-12-24 04:55] LABS: Anion Gap 27 mmol/L (10-20); Calc. Creatinine Clearance 28 mL/min (70-130); Calcium 6.8 mg/dL (7.8-10.44); Carbon Dioxide 18 mmol/L (22-29); Chloride 91 mmol/L (98-107); Estimated GFR-MDRD 8; Glucose 141 mg/dL (70-105); Potassium 5.4 mmol/L (3.5-5.1); Sodium 131 mmol/L (136-145)
[2019-12-24 05:07] LABS: BUN (Urea Nitrogen) 129 mg/dL (8.9-20.6)
[2019-12-24] MEDS: Dextrose 5% in Water 1,000 ML IV SCH (06:12)
[2019-12-24] MEDS: Metoclopramide HCl 10 MG/2 ML VIAL IVP SCH ×3 (06:14→21:42)
[2019-12-24] MEDS: fentaNYL Citrate/PF 2,000 MCG in Sodium Chloride 0.9% 60 ML IV SCH (06:54)
--- NOTE | 2019-12-24 07:54 | RAD ---
EXAM: Chest one view: HISTORY: Respiratory insufficiency COMPARISON: 12/23/2019 FINDINGS: NG tube and tracheostomy tubes in place. Heart size: Borderline enlarged. Lungs: Patchy bilateral interstitial and alveolar opacity changes showing little change from prior st udy. No evidence for confluent pneumonia, pleural effusion, acute edema, or pneumothorax, or other signifi cant acute process. IMPRESSION: Stable bilateral diffuse interstitial and alveolar opacity changes.
[2019-12-24] MEDS: Pantoprazole 40 MG VIAL IVP SCH (09:41)
[2019-12-24] MEDS: methylPREDNISolone Sod Succ 40 MG VIAL IVP SCH ×2 (09:41→21:42)
--- NOTE | 2019-12-24 09:50 | PRG ---
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 He is switched over to an IMV mode. He is doing well on that. OBJECTIVE: VITAL SIGNS: His blood pressure is 150/97. Saturations are 96%, temperature 100.8, respiratory rate 18. HEENT: Pupils are equal, 2 mm. CHEST: Rhonchi. No wheezing. CARDIAC: Normal S1 and S2. No gallops. ABDOMEN: Massive. LABORATORY DATA: White count 21,000, hemoglobin and hematocrit are 9 and 26. Potassium 5.4, BUN and creatinine are 129 and 7.9. ASSESSMENT AND PLAN: 1. Multiorgan failure secondary to pontine hemorrhage. 2. Respiratory failure, acute respiratory distress syndrome, better. 3. Renal failure. Family did not want any additional dialysis. Clearly, hyperkalemia is a problem. He has ileus. He is not observing any nutrition or feeding. Palliative Care was again consulted to talk to the family. Comfort care. One-half hour of critical care time. Job ID: [id number]
--- NOTE | 2019-12-24 11:43 | PRG ---
DATE OF SERVICE: 12/24/2019 SUBJECTIVE: The patient is seen and examined at bedside. The patient remains unresponsive. No family at the bedside. OBJECTIVE: GENERAL: This is a morbidly obese male, seen in ICU. VITAL SIGNS: Temperature 99.5, pulse 84, respiratory rate 18, and blood pressure 157/97. CHEST: Clear. CV: S1 and S2 heard. GI: Obese. MUSCULOSKELETAL: 1 to 2+ edema. NEUROLOGIC: Unresponsive. LABORATORY DATA: Potassium is 5.4, BUN is 129, and creatinine is 7.97. ASSESSMENT AND PLAN: 1. Acute kidney injury on chronic kidney disease stage 3, most likely end-stage renal disease, dialysis dependent, but his overall prognosis is poor. Family wished to have one more dialysis yesterday, which we had with no significant improvement in any clinical parameters. 2. Pontine hemorrhage with very poor prognosis and altered mentation. 3. Acute hypoxic respiratory failure. 4. Morbid obesity. 5. Hypertension. 6. Hyperkalemia. 7. Edema. Overall prognosis remains poor and Palliative Care and primary team trying to communicate with the family about his prognosis. I explained to the family that dialysis would not be beneficial for his overall clinical improvement, who wanted to try dialysis one more time yesterday. We will continue to follow. Job ID: [id number]
[2019-12-24] MEDS ORDERED: Acetaminophen 650 MG Suppository PR PRN (14:31)
[2019-12-24] MEDS: Labetalol HCl 100 MG/20 ML VIAL SLOW IVP PRN ×2 (14:59→23:28)
--- NOTE | 2019-12-24 18:46 | PDOC.HOSPP ---
- Subjective Encounter Date: 12/24/19 Encounter Time: 18:44 Subjective: The patient is still intubated. He doesn't follow commands . No dialysis is being performed today - Objective Vital Signs & Weight: Vital Signs (12 hours) Temp Pulse Resp BP Pulse Ox 12/24/19 16:00 101.7 F H 22 H 12/24/19 15:12 82 153/90 H 12/24/19 14:59 88 169/111 H 12/24/19 14:00 27 H 12/24/19 13:00 101.3 F H 12/24/19 12:33 88 167/105 H 12/24/19 12:00 100.7 F H 28 H 12/24/19 10:58 83 155/102 H 12/24/19 10:00 25 H 12/24/19 08:00 27 H 98 12/24/19 07:29 82 161/107 H Weight Admit Weight 328 lb Weight 328 lb 7.82 oz Most Recent Monitor Data Heart Rate from ECG 83 NIBP 160/100 NIBP BP-Mean 120 Respiration from ECG 26 SpO2 99 I&O: 12/23/19 12/24/19 12/25/19 06:59 06:59 06:59 Intake Total 1671 1367 100 Output Total 450 90 Balance 1221 1367 10 Result Diagrams: 12/24/19 04:01 12/24/19 04:01 Hospitalist ROS - Review of Systems ROS unobtainable: due to endotracheal tube - Medication Medications: Active Medications Generic Name Dose Route Start Last Admin Trade Name Freq PRN Reason Stop Dose Admin Acetaminophen 650 mg 12/12/19 12:15 12/21/19 14:54 Acetaminophen 325 Mg Tab PO 650 mg Q6H PRN Administration Fever > 101 or Headache Acetaminophen 650 mg 12/24/19 14:31 12/24/19 14:59 Acetaminophen 650 Mg Suppository [place] 650 mg Q6H PRN Administration Headache/Fever >101 Levetiracetam 500 mg/ Device 100 mls @ 200 mls/hr 12/12/19 21:00 12/24/19 09:39 IVPB 100 mls BID CHRIS Administration Nicardipine HCl 50 mg/ Sodium 250 mls @ 0 mls/hr 12/12/19 20:46 12/18/19 20:18 Chloride IVPB 250 mls INF PRN Administration SBP > 140 Protocol Titrate Dextrose/Water 1,000 mls @ 30 mls/hr 12/18/19 12:15 12/24/19 06:12 D5w IV 1,000 mls .Q24H CHRIS Administration Cefepime HCl 0.5 gm/ 100 mls @ 200 mls/hr 12/22/19 21:00 12/23/19 16:35 Miscellaneous Medication 1 IVPB 100 mls each/ Sodium Chloride 2100 CHRIS Administration Levofloxacin 750 mg/ Device 150 mls @ 100 mls/hr 12/23/19 15:00 12/23/19 17:27 IVPB 150 mls Q2D@1500 CHRIS Administration Fentanyl Citrate 2,000 mcg/ 100 mls @ 0 mls/hr 12/23/19 09:30 12/24/19 06:54 Sodium Chloride IV 100 mls INF CHRIS Administration Protocol Per Protocol Labetalol HCl 10 mg 12/12/19 12:15 12/24/19 14:59 Labetalol Hcl 100 Mg/20 Ml Vial SLOW IVP 10 mg Q2H PRN Administration SBP > 140 Methylprednisolone Sodium Succinate 20 mg 12/23/19 09:00 12/24/19 09:41 Methylprednisolone Sod Succ 40 Mg Vial IVP 20 mg BID CHRIS Administration Metoclopramide HCl 10 mg 12/23/19 14:00 12/24/19 13:54 Metoclopramide Hcl 10 Mg/2 Ml Vial IVP 10 mg Q8HR CHRIS Administration Pantoprazole Sodium 40 mg 12/13/19 09:00 12/24/19 09:41 Pantoprazole 40 Mg Vial IVP 40 mg DAILY CHRIS Administration Propofol 1,000 mg 12/12/19 14:15 12/22/19 12:48 Propofol 1,000 Mg/100 Ml Vial IV 01/11/20 14:15 1,000 mg INF PRN Administration TO ACHIEVE GOAL RASS Protocol Sodium Chloride 10 ml 12/12/19 12:15 12/16/19 08:57 Flush - Normal Saline 10 Ml Syringe IVF 10 ml PRN PRN Administration Saline Flush - Exam General Appearance: NAD, awake alert Eye: PERRL, anicteric sclera ENT: normocephalic atraumatic, no oropharyngeal lesions Neck: no JVD Heart: RRR, no murmur, no gallops, no rubs Respiratory: CTAB, no wheezes, no rales, no ronchi Gastrointestinal: soft, non-tender, non-distended, normal bowel sounds Extremities: no cyanosis, no clubbing, no edema Skin: normal turgor, no lesions, no rashes Neurological: cranial nerve grossly intact, normal sensation to touch, no weakn ess, no new deficit Musculoskeletal: normal tone, normal strength, no muscle wasting Psychiatric: normal affect, normal behavior, A&O x 3, oriented to person Hosp A/P - Plan Chest X ray 12/18: worsening consolidation in each upper lobe CT brain 12/11: 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 CT brain 12/13: stable pontine hemorrhage Chest X ray 12/19: complete resolution of upper lobe infiltrates Chest X Xray 12/20: new severe airspace consolidation, appears worst on left. This is a 34 year old male who presetned with hypertensive emergency and admitted for hemorrhagic stroke. Intubated and has bilateral pneumonia #Acute encephalopathy secondary to hypertensive emergency with hemorrhagic str mahendra - presented with a BP Of 250/123. CT scan of the brain show large central pontine hemorrhage. Repeat CT 12/14 is stable - neurosurgery recommended no intervention . - continue keppra - he is not responsive off of sedation . Family wants to continue with care for now, understands no chance patient will regain independence #Acute hypoxic respiratory failure secondary to bilateral pneumonia and volume overload #Acute respiratory acidosis - he was on vancomycin, zosyn and levaquin. Levaquin IV added 12/19. Chest X ray 12/19 showed resolution of infiltrate, but repeat chest X ray 12/20 showed new severe airspace consolidation , worst on the left. - Antibiotics switched to cefepime 12/20. Bronch cultures grew MRSA and E coli sensitive to zosyn - WBC 21 - ventilator settings changed to SIMV #Acute oliguric renal failure - received dialysis 12/19 and 12/20 and dialysis today 12/22 Hyperkalemia - resolved Hypernatremia - resolved, sodium down to 144 Anemia - Hb down to 9.1, possibly from brain bleed and anemia of chronic disease. TSh normal .
--- NOTE | 2019-12-24 20:28 | PDOC.EVN ---
Event Note - Event Note Event Note: Spoke to patient's sister. She does not want dialysis. She does want labs checked, but only once a day. She states that she wants the potassium to be treated once a day but is okay if it the levels aren't rechecked after that to make sure it has come down. She wants to continue care otherwise
[2019-12-24] MEDS ORDERED: Dextrose 50% Abboject 50 ML SYRINGE SLOW IVP SCH (21:00)
[2019-12-24] MEDS ORDERED: Insulin Regular 300 UNITS/3 ML VIAL IVP SCH (21:00)
[2019-12-24] MEDS: Acetaminophen 325 MG TAB PO PRN (21:41)
[2019-12-24] MEDS: Cefepime 0.5 GM, Admixture Fee 1 EACH in Sodium Chloride 0.9% 100 ML IVPB SCH (21:55)
[2019-12-25] MEDS: Propofol 1,000 MG/100 ML VIAL IV PRN ×3 (00:48→13:53)
[2019-12-25] MEDS: niCARdipine 50 MG in Sodium Chloride 0.9% 250 ML 230 ML IVPB PRN (02:53)
[2019-12-25] MEDS: Acetaminophen 325 MG TAB PO PRN (04:23)
[2019-12-25 04:53] LABS: Hemoglobin 9.3 g/dL (14.0-18.0); Mean Corpuscular HGB CONC 34.7 g/dL (32.0-36.0); Mean Corpuscular Hemoglobin 30.8 pg (27.0-31.0); Mean Corpuscular Volume 88.7 fL (78.0-98.0); Platelet Count 273 thou/uL (130-400); RBC Distribution Width 12.8 % (11.5-14.5); Red Blood Cell (RBC) Count 3.01 mill/uL (4.70-6.10); White Blood Cell (WBC) Count 21.8 thou/uL (4.8-10.8)
[2019-12-25 05:19] LABS: Anion Gap 34 mmol/L (10-20); Calc. Creatinine Clearance 21 mL/min (70-130); Calcium 6.2 mg/dL (7.8-10.44); Carbon Dioxide 13 mmol/L (22-29); Chloride 88 mmol/L (98-107); Estimated GFR-MDRD 6; Glucose 138 mg/dL (70-105); Sodium 128 mmol/L (136-145)
[2019-12-25 05:27] LABS: Potassium 7.4 mmol/L (3.5-5.1)
[2019-12-25 05:30] LABS: BUN (Urea Nitrogen) 168 mg/dL (8.9-20.6)
[2019-12-25] MEDS ORDERED: Insulin Regular 300 UNITS/3 ML VIAL IVP SCH (05:45)
[2019-12-25] MEDS ORDERED: Dextrose 50% Abboject 50 ML SYRINGE SLOW IVP SCH (05:45)
[2019-12-25] MEDS ORDERED: Sodium Bicarb 50 MEQ/50 ML Abboject 8.4% SYRINGE IVP SCH (05:45)
[2019-12-25] MEDS: Metoclopramide HCl 10 MG/2 ML VIAL IVP SCH ×3 (05:58→21:21)
[2019-12-25] MEDS: Dextrose 5% in Water 1,000 ML IV SCH (09:02)
[2019-12-25] MEDS: Pantoprazole 40 MG VIAL IVP SCH (09:03)
[2019-12-25] MEDS: methylPREDNISolone Sod Succ 40 MG VIAL IVP SCH ×2 (09:03→21:21)
[2019-12-25] MEDS: Labetalol HCl 100 MG/20 ML VIAL SLOW IVP PRN ×2 (09:40→16:26)
[2019-12-25] MEDS: Sodium Chloride 0.9% 1,000 ML IV SCH (09:41)
--- NOTE | 2019-12-25 10:19 | PRG ---
DATE OF SERVICE: 12/25/2019 SUBJECTIVE: Rahul Thapa is a 34-year-old morbidly obese gentleman, status post pontine hemorrhage, remains unresponsive on the vent. OBJECTIVE: VITAL SIGNS: Pulse 83, blood pressure 154/80, sats 99% on 50%, PEEP of 10, and respirations 16. He has no urine output. CHEST: Rhonchi, crackles. CARDIAC: Normal S1 and S2. No gallops. ABDOMEN: Massive. IMPRESSION: 1. Multiorgan failure. 2. Pontine hemorrhage, locked-in syndrome. 3. Renal failure. 4. Significant ileus. 5. Hypertension. PLAN: Discuss with the nurses that I am not going to order any lab and it is between the hospitalist and the family. They are doing daily lab including the potassium once a day. Regarding nutrition, he is unable to tolerate any feeding and I have started Reglan, did not have any significant bowel movement. At this stage, it is not much to offer. Clearly, his prognosis is grave. Job ID: [id number]
[2019-12-25 14:17] VITALS: BMI 52.9
--- NOTE | 2019-12-25 15:11 | PRG ---
DATE OF SERVICE: 12/25/2019 SUBJECTIVE: The patient was seen and examined at the bedside. Bedside nurse updated. No family members available. OBJECTIVE: GENERAL: This is an obese male in ICU. VITAL SIGNS: Temperature 100.9, pulse 70, respiratory rate 18, blood pressure 145/93. CHEST: Clear anteriorly. GASTROINTESTINAL: Abdomen obese. CARDIOVASCULAR SYSTEM: S1 and S2 heard. MUSCULOSKELETAL: 2+ edema. NEUROLOGIC: Unresponsive. LABORATORY DATA: Potassium 7.4, BUN 168, creatinine is 10.4. ASSESSMENT AND PLAN: 1. Acute kidney injury on chronic kidney disease, stage 3. There is no significant neurological improvement. Family wishes not to have any more dialysis. 2. Severe hyperkalemia. 3. Pontine hemorrhage. 4. Acidosis. 5. Hypertension. 6. Altered mentation. 7. Edema. Family wishes not to have any more dialysis. I will sign off. Please call back with any questions. Job ID: [id number]
--- NOTE | 2019-12-25 19:52 | PDOC.HOSPP ---
- Subjective Encounter Date: 12/25/19 Encounter Time: 10:00 Subjective: The patient is still not responsive. He does not open eyes to commands. He has mild corneal reflex. Potassium 7 this morning. Discussed with the sister. She is okay with sticking to the plan of only treating once per day. Sister states she is interested in hospice - Objective Vital Signs & Weight: Vital Signs (12 hours) Temp Pulse Resp BP Pulse Ox 12/25/19 18:24 71 128/83 12/25/19 18:00 16 12/25/19 16:26 78 146/95 H 12/25/19 16:00 100 F H 16 12/25/19 14:11 81 12/25/19 14:00 17 12/25/19 12:00 100.9 F H 18 12/25/19 10:06 76 12/25/19 10:00 16 12/25/19 09:40 82 143/95 H 12/25/19 08:00 16 12/25/19 07:59 100 Weight Admit Weight 328 lb Weight 317 lb 14.505 oz Most Recent Monitor Data Heart Rate from ECG 76 NIBP 126/82 NIBP BP-Mean 96 Respiration from ECG 21 SpO2 98 I&O: 12/24/19 12/25/19 12/26/19 06:59 06:59 06:59 Intake Total 1367 1427.5 589 Output Total 93 30 Balance 1367 1334.5 559 Result Diagrams: 12/25/19 04:10 12/25/19 04:10 Hospitalist ROS - Review of Systems Constitutional: denies: fever, chills - Medication Medications: Active Medications Generic Name Dose Route Start Last Admin Trade Name Freq PRN Reason Stop Dose Admin Acetaminophen 650 mg 12/12/19 12:15 12/25/19 04:23 Acetaminophen 325 Mg Tab PO 650 mg Q6H PRN Administration Fever > 101 or Headache Acetaminophen 650 mg 12/24/19 14:31 12/24/19 14:59 Acetaminophen 650 Mg Suppository [place] 650 mg Q6H PRN Administration Headache/Fever >101 Levetiracetam 500 mg/ Device 100 mls @ 200 mls/hr 12/12/19 21:00 12/25/19 09:02 IVPB 100 mls BID CHRIS Administration Nicardipine HCl 50 mg/ Sodium 250 mls @ 0 mls/hr 12/12/19 20:46 12/25/19 02:53 Chloride IVPB 250 mls INF PRN Administration SBP > 140 Protocol Titrate Cefepime HCl 0.5 gm/ 100 mls @ 200 mls/hr 12/22/19 21:00 12/24/19 21:55 Miscellaneous Medication 1 IVPB 100 mls each/ Sodium Chloride 2100 CHRIS Administration Levofloxacin 750 mg/ Device 150 mls @ 100 mls/hr 12/23/19 15:00 12/25/19 13:54 IVPB 150 mls Q2D@1500 CHRIS Administration Fentanyl Citrate 2,000 mcg/ 100 mls @ 0 mls/hr 12/23/19 09:30 12/24/19 06:54 Sodium Chloride IV 100 mls INF CHRIS Administration Protocol Per Protocol Sodium Chloride 1,000 mls @ 50 mls/hr 12/25/19 09:45 12/25/19 09:41 Normal Saline 0.9% IV 1,000 mls .Q20H CHRIS Administration Labetalol HCl 20 mg 12/25/19 09:32 12/25/19 16:26 Labetalol Hcl 100 Mg/20 Ml Vial SLOW IVP 20 mg Q2H PRN Administration SBP > 140 Methylprednisolone Sodium Succinate 20 mg 12/23/19 09:00 12/25/19 09:03 Methylprednisolone Sod Succ 40 Mg Vial IVP 20 mg BID CHRIS Administration Metoclopramide HCl 10 mg 12/23/19 14:00 12/25/19 14:28 Metoclopramide Hcl 10 Mg/2 Ml Vial IVP 10 mg Q8HR CHRIS Administration Pantoprazole Sodium 40 mg 12/13/19 09:00 12/25/19 09:03 Pantoprazole 40 Mg Vial IVP 40 mg DAILY CHRIS Administration Propofol 1,000 mg 12/12/19 14:15 12/25/19 13:53 Propofol 1,000 Mg/100 Ml Vial IV 01/11/20 14:15 1,000 mg INF PRN Administration TO ACHIEVE GOAL RASS Protocol Sodium Chloride 10 ml 12/12/19 12:15 12/16/19 08:57 Flush - Normal Saline 10 Ml Syringe IVF 10 ml PRN PRN Administration Saline Flush - Exam General - other findings: obtunded ENT - other findings: trach in place Heart: RRR, no murmur, no gallops, no rubs Respiratory - other findings: bilateral rales Gastrointestinal: soft, distended, diminished bowl sounds Extremities: no cyanosis, 1+ LE edema Skin: normal turgor, no rashes Hosp A/P - Plan Chest X ray 12/18: worsening consolidation in each upper lobe CT brain 12/11: 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 CT brain 12/13: stable pontine hemorrhage Chest X ray 12/19: complete resolution of upper lobe infiltrates Chest X ray 12/20: new severe airspace consolidation, appears worst on left. Chest X ray 12/23: stable bilateral diffuse infiltrates This is a 34 year old male who presetned with hypertensive emergency and admitted for hemorrhagic stroke. Intubated and has bilateral pneumonia #Acute encephalopathy secondary to hypertensive emergency with hemorrhagic stroke - presented with a BP Of 250/123. CT scan of the brain show large central pontine hemorrhage. Repeat CT 12/14 is stable - neurosurgery recommended no intervention . - continue keppra - 12/24: family to continue supportive care. Palliative care has been consulted since sister is interested in transitioning to hospice. #Acute hypoxic respiratory failure secondary to bilateral pneumonia/ARDS, pulmonary artie a #Acute respiratory acidosis - he was on vancomycin, zosyn and levaquin. Levaquin IV added 12/19. Chest X ray 12/19 showed resolution of infiltrate, but repeat chest X ray 12/20 showed new severe airspace consolidation , worst on the left. Antibiotics switched to cefepime 12/20. Bronch cultures grew MRSA and E coli sensitive to zosyn -12/24 : WBC stable at 21.8. Currently on SIMV. Continue levaquin and cefepime. Repeat Xray tomorrow, Xray from 12/23 showed bilateral diffuse infiltrates #Acute oliguric renal failure - received dialysis 12/19 and 12/20 and 12/22. Family has decided they do not want any more dialysis - creatinine is up to 15 Hyperkalemia - potassium has increased to 7. Receive insulin/dextrose. Recheck tomorrow. Hyponatremia -sodium down to 128, likely from fluid overload. Supportive care Anemia -stable at 9.3. Disposition: will attempt to transition to inpatient hospice
[2019-12-25] MEDS: Cefepime 0.5 GM, Admixture Fee 1 EACH in Sodium Chloride 0.9% 100 ML IVPB SCH (21:13)
[2019-12-26] MEDS: Labetalol HCl 100 MG/20 ML VIAL SLOW IVP PRN (00:57)
[2019-12-26] MEDS: Propofol 1,000 MG/100 ML VIAL IV PRN ×3 (04:00→20:32)
[2019-12-26 04:46] LABS: Anion Gap 37 mmol/L (10-20); Band 7 % (5-11); Calc. Creatinine Clearance 18 mL/min (70-130); Calcium 5.9 mg/dL (7.8-10.44); Carbon Dioxide 12 mmol/L (22-29); Chloride 86 mmol/L (98-107); Estimated GFR-MDRD 5; Glucose 127 mg/dL (70-105); Lymphocytes 7 % (21-51); MDiff Complete? YES; Mean Corpuscular HGB CONC 33.5 g/dL (32.0-36.0); Mean Corpuscular Volume 89.5 fL (78.0-98.0); Mean Platelet Volume 9.9 fL (7.4-10.4); Metamyelocyte 3 % (0-0); Monocytes 5 % (0-10); Neutrophil 78 % (42-75); Platelet Count 296 thou/uL (130-400); Platelet Morphology Comment Appears Adequate; Potassium 9.2 mmol/L (3.5-5.1); RBC Distribution Width 13.3 % (11.5-14.5); RBC Morphology Normal; Red Blood Cell (RBC) Count 2.98 mill/uL (4.70-6.10); Sodium 126 mmol/L (136-145); White Blood Cell (WBC) Count 24.9 thou/uL (4.8-10.8)
[2019-12-26 04:47] LABS: BUN (Urea Nitrogen) 204 mg/dL (8.9-20.6)
[2019-12-26] MEDS: Sodium Chloride 0.9% 1,000 ML IV SCH (05:37)
[2019-12-26] MEDS: Metoclopramide HCl 10 MG/2 ML VIAL IVP SCH ×3 (05:41→22:25)
[2019-12-26] MEDS ORDERED: Insulin Regular 300 UNITS/3 ML VIAL IVP SCH (06:00)
[2019-12-26] MEDS ORDERED: Dextrose 50% Abboject 50 ML SYRINGE SLOW IVP SCH (06:00)
[2019-12-26] MEDS ORDERED: Sodium Bicarb 50 MEQ/50 ML Abboject 8.4% SYRINGE IVP SCH (06:00)
[2019-12-26] MEDS ORDERED: Calcium Gluc 4.6 MEQ/10 ML (100 MG/ML) SLOW IVP SCH (06:00)
[2019-12-26] MEDS: methylPREDNISolone Sod Succ 40 MG VIAL IVP SCH ×2 (08:36→20:10)
[2019-12-26] MEDS: Pantoprazole 40 MG VIAL IVP SCH (08:37)
--- NOTE | 2019-12-26 14:21 | PDOC.HOSPP ---
- Subjective Encounter Date: 12/26/19 Encounter Time: 14:00 Subjective: pt is obtunded, on vent no response to verbal or painfull stimuli - Objective Vital Signs & Weight: Vital Signs (12 hours) Temp Pulse Resp 12/26/19 10:03 65 12/26/19 08:00 98.6 F 12/26/19 07:41 70 12/26/19 06:00 16 12/26/19 04:00 98.8 F 16 Weight Admit Weight 328 lb Weight 327 lb 9.71 oz Most Recent Monitor Data Heart Rate from ECG 65 NIBP 133/84 NIBP BP-Mean 100 Respiration from ECG 14 SpO2 100 I&O: 12/25/19 12/26/19 12/27/19 06:59 06:59 06:59 Intake Total 1427.5 1450 120 Output Total 93 300 45 Balance 1334.5 1150 75 Result Diagrams: 12/26/19 03:41 12/26/19 03:41 Hospitalist ROS - Medication Medications: Active Medications Generic Name Dose Route Start Last Admin Trade Name Freq PRN Reason Stop Dose Admin Acetaminophen 650 mg 12/12/19 12:15 12/25/19 04:23 Acetaminophen 325 Mg Tab PO 650 mg Q6H PRN Administration Fever > 101 or Headache Acetaminophen 650 mg 12/24/19 14:31 12/24/19 14:59 Acetaminophen 650 Mg Suppository ME 650 mg Q6H PRN Administration Headache/Fever >101 Levetiracetam 500 mg/ Device 100 mls @ 200 mls/hr 12/12/19 21:00 12/26/19 08:36 IVPB 100 mls BID CHRIS Administration Nicardipine HCl 50 mg/ Sodium 250 mls @ 0 mls/hr 12/12/19 20:46 12/25/19 02:53 Chloride IVPB 250 mls INF PRN Administration SBP > 140 Protocol Titrate Cefepime HCl 0.5 gm/ 100 mls @ 200 mls/hr 12/22/19 21:00 12/25/19 21:13 Miscellaneous Medication 1 IVPB 100 mls each/ Sodium Chloride 2100 CHRIS Administration Levofloxacin 750 mg/ Device 150 mls @ 100 mls/hr 12/23/19 15:00 12/25/19 13:54 IVPB 150 mls Q2D@1500 CHRIS Administration Fentanyl Citrate 2,000 mcg/ 100 mls @ 0 mls/hr 12/23/19 09:30 12/24/19 06:54 Sodium Chloride IV 100 mls INF CHRIS Administration Protocol Per Protocol Sodium Chloride 1,000 mls @ 50 mls/hr 12/25/19 09:45 12/26/19 05:37 Normal Saline 0.9% IV 1,000 mls .Q20H CHRIS Administration Labetalol HCl 20 mg 12/25/19 09:32 12/26/19 00:57 Labetalol Hcl 100 Mg/20 Ml Vial SLOW IVP 20 mg Q2H PRN Administration SBP > 140 Methylprednisolone Sodium Succinate 20 mg 12/23/19 09:00 12/26/19 08:36 Methylprednisolone Sod Succ 40 Mg Vial IVP 20 mg BID CHRIS Administration Metoclopramide HCl 10 mg 12/23/19 14:00 12/26/19 05:41 Metoclopramide Hcl 10 Mg/2 Ml Vial IVP 10 mg Q8HR CHRIS Administration Pantoprazole Sodium 40 mg 12/13/19 09:00 12/26/19 08:37 Pantoprazole 40 Mg Vial IVP 40 mg DAILY CHRIS Administration Propofol 1,000 mg 12/12/19 14:15 12/26/19 12:24 Propofol 1,000 Mg/100 Ml Vial IV 01/11/20 14:15 1,000 mg INF PRN Administration TO ACHIEVE GOAL RASS Protocol Sodium Chloride 10 ml 12/12/19 12:15 12/16/19 08:57 Flush - Normal Saline 10 Ml Syringe IVF 10 ml PRN PRN Administration Saline Flush - Exam General Appearance: ill appearing Eye: PERRL, anicteric sclera ENT: no oropharyngeal lesions, moist mucosa Neck: supple, no JVD Heart: RRR, no murmur Respiratory: no wheezes, rales, rhonchi Gastrointestinal: soft, normal bowel sounds, no guarding, no rigidity Extremities: no cyanosis, 2+ LE edema Hosp A/P (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 IN BRAIN STEM Status: Acute (2) Acute respiratory failure with hypoxia Code(s): J96.01 - ACUTE RESPIRATORY FAILURE WITH HYPOXIA Status: Acute (3) PNA (pneumonia) Code(s): J18.9 - PNEUMONIA, UNSPECIFIED ORGANISM Status: Acute Qualifiers: Pneumonia type: due to methicillin-sensitive Staphylococcus aureus (MSSA) Laterality: bilateral (4) Multiple organ failure Code(s): ETA1063 - Status: Acute (5) Morbid obesity with BMI of 50.0-59.9, adult Code(s): E66.01 - MORBID (SEVERE) OBESITY DUE TO EXCESS CALORIES; Z68.43 - BODY MASS INDEX [BMI] 50.0-59.9, ADULT Status: Chronic (6) Metabolic acidosis Code(s): E87.2 - ACIDOSIS Status: Acute (7) Hyperkalemia Code(s): E87.5 - HYPERKALEMIA Status: Acute (8) Acute renal failure Status: Acute Qualifiers: Acute renal failure type: unspecified Qualified Code(s): N17.9 - Acute kidney failure, unspecified (9) Encephalopathy acute Code(s): G93.40 - ENCEPHALOPATHY, UNSPECIFIED Status: Acute (10) Hypertensive crisis Code(s): I16.9 - HYPERTENSIVE CRISIS, UNSPECIFIED Status: Acute - Plan prognosis dismal, is imminent, family is aware including sister and mother extensive discussion were held with sister and mother at bedside, I have shown them the labs and imaging studies from admission till now his electrolyte abnormality and renal failure are incompatible with life, family is clearly aware they have not decided about placing him in hospice but do not want dialysis to be restarted during our discussion, sister and POA wanted her cousins x2 one is a nurse and the other a transit authority police officer to be on the call, infact she had dialled a co nference call without even asking me during the conversation. Mother at bedside consents for the call and approving for them to listen (the reason for them to be in the conversation was qoute "I need them to keep my sanity" per sister. The sister was very anxious and sometime outright rude during conversation. Patient does not have a POA signed prior to hospitalization and mother has given sister the POA, this was confirmed with mom at bedside. At the end of the conversation the sister wanted me and RN for the patient to get out of the room so they can talk as family in the conference room. I do not wish to talk again to the sister based on her behaviour during our conversation and outright rudeness at times. Also during the conversation the sister got upset that I spoke to father about his son's condition this am which I tried to tell her it was not me. Mother was very pleasant given what her son is going through. continue current meds for now including antibiotics.
--- NOTE | 2019-12-26 20:26 | PRG ---
DATE OF SERVICE: 12/26/2019 SUBJECTIVE: Russell Kay is unresponsive. OBJECTIVE: VITAL SIGNS: Respiratory rate 16, heart rate is 69, blood pressure 140/86 this evening. Intake and outputs positive at 150. LUNGS: Clear and distant. HEART: Regular rhythm and distant. S1 and S2. ABDOMEN: Soft and massive. EXTREMITIES: Without asymmetry. LABORATORY DATA: White count 24.9, hemoglobin is 9, platelets 296. Potassium is 9.2 this morning. Creatinine was 12. Apparently, family has decided to stop dialysis. IMPRESSION: brain hemorrhage with renal failure, preterminal. PLAN: Continue supportive care. Job ID: [id number]
[2019-12-26] MEDS: Cefepime 0.5 GM, Admixture Fee 1 EACH in Sodium Chloride 0.9% 100 ML IVPB SCH (20:32)
[2019-12-27 02:04] VITALS: BP 145/88
[2019-12-27] MEDS: Propofol 1,000 MG/100 ML VIAL IV PRN (02:06)
[2019-12-27] MEDS: Metoclopramide HCl 10 MG/2 ML VIAL IVP SCH (06:02)
[2019-12-27 07:39] VITALS: TEMP 98.6
[2019-12-27] MEDS: methylPREDNISolone Sod Succ 40 MG VIAL IVP SCH (08:19)
[2019-12-27] MEDS: Pantoprazole 40 MG VIAL IVP SCH (08:20)
[2019-12-27] MEDS: Sodium Chloride 0.9% 1,000 ML IV SCH (08:25)
--- NOTE | 2019-12-29 15:50 | DIS ---
DATE OF ADMISSION: 12/12/2019 DATE OF DISCHARGE: 12/27/2019 DATE OF : 12/27/2019. TIME: 9:19 a.m. PRIMARY CAUSE OF : Pontine hemorrhage, multiple organ failure both from 15 days, acute renal failure 12 days, acute respiratory failure with hypoxia 15 days. Factors contributing to cause of ; hypertensive emergency, hyperkalemia, metabolic acidosis, morbid obesity with BMI of 55. BRIEF COURSE During hospitalization: patient initially was found unresponsive by his father in his vehicle. He apparently was having some type of seizure activity. The EMS was summoned. He was given Ativan and they tried to intubate him for airway, but could not get oropharyngeal airway and they ended up having cricothyroidotomy done with passage of size 6 endotracheal tube. On arrival in ER patient, patient has had consultation with Dr. Westbrook for Neurosurgery, Dr. Salinas for General Surgery, and Dr. Rodriguez for Pulmonology and Critical Care. 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 He was admitted to ICU. Patient has had revision of his cricothyroidotomy to tracheostomy done by Dr. Salinas. He has had serial CAT scans done. His overall prognosis was very poor from onset. There was no surgical indication per Neurosurgery. Patient over the course of his stay developed acute renal failure, hyperkalemia, and metabolic acidosis. He also developed pneumonia. The family did not want dialysis initially and later wanted 2 to 3 sessions of dialysis to see if this would help him. This was done and again dialysis was stopped. Patient finally developed severe metabolic acidosis with hyperkalemia. His last potassium levels were 9.2 on the with BUN and creatinine of 204 and 12.0 and serum bicarb of 12 on the same day. His family was given complete updates on a daily basis by hospital physicians. On the with a potassium of 9.2 and bicarb of 12 with BUN and creatinine of 204 and 12 was imminent. This was explained to family by myself. He finally breathed his last at 9:19 a.m. Prior to this, he was do not attempt to resuscitate. He went into asystole. His body will be released to family per family and home per hospital protocol. Job ID: [id number] [facility]
== END 2019-12-27 09:19 | disposition expired | DRG 4 ==
LOC: ERS 09:04 → CCU 14:05
PROVIDERS: ADMIT Internal Medicine; ATTEND Internal Medicine
PROC: 0B113F4 Bypass Trachea to Cutaneous with Tracheostomy Device, Percutaneous Approach (ICD-10-PCS; principal; 2019-12-12)
PROC: 5A1955Z Respiratory Ventilation, Greater than 96 Consecutive Hours (ICD-10-PCS; 2019-12-12)
PROC: 0BH17EZ Insertion of Endotracheal Airway into Trachea, Via Natural or Artificial Opening (ICD-10-PCS; 2019-12-12)
PROC: 0B113F4 Bypass Trachea to Cutaneous with Tracheostomy Device, Percutaneous Approach (ICD-10-PCS; 2019-12-12)
PROC: 0B9M8ZZ Drainage of Bilateral Lungs, Via Natural or Artificial Opening Endoscopic (ICD-10-PCS; 2019-12-14)
PROC: 06HY33Z Insertion of Infusion Device into Lower Vein, Percutaneous Approach (ICD-10-PCS; 2019-12-20)
PROC: 5A1D70Z Performance of Urinary Filtration, Intermittent, Less than 6 Hours Per Day (ICD-10-PCS; 2019-12-20)
PROC: 5A1D70Z Performance of Urinary Filtration, Intermittent, Less than 6 Hours Per Day (ICD-10-PCS; 2019-12-21)
PROC: 5A1D70Z Performance of Urinary Filtration, Intermittent, Less than 6 Hours Per Day (ICD-10-PCS; 2019-12-23)
DX: I61.3 Nontraumatic intracerebral hemorrhage in brain stem (principal); G83.5 Locked-in state; J96.01 Acute respiratory failure with hypoxia; J69.0 Pneumonitis due to inhalation of food and vomit; A41.9 Sepsis, unspecified organism; J15.211 Pneumonia due to Methicillin susceptible Staphylococcus aureus; N17.9 Acute kidney failure, unspecified; Z68.43 Body mass index [BMI] 50.0-59.9, adult; E87.2 Acidosis; I16.1 Hypertensive emergency; E87.0 Hyperosmolality and hypernatremia; K56.7 Ileus, unspecified; G93.40 Encephalopathy, unspecified; Z66 Do not resuscitate; Z51.5 Encounter for palliative care; E87.70 Fluid overload, unspecified; E87.5 Hyperkalemia; I46.9 Cardiac arrest, cause unspecified; E66.01 Morbid (severe) obesity due to excess calories; N18.30 Chronic kidney disease, stage 3 unspecified; I12.9 Hypertensive chronic kidney disease with stage 1 through stage 4 chronic kidney disease, or unspecified chronic kidney disease; D72.829 Elevated white blood cell count, unspecified; E88.09 Other disorders of plasma-protein metabolism, not elsewhere classified; R56.9 Unspecified convulsions; Z20.828 Contact with and (suspected) exposure to other viral communicable diseases; A49.02 Methicillin resistant Staphylococcus aureus infection, unspecified site; A49.8 Other bacterial infections of unspecified site
CPT/HCPCS: 31500; 31624; 36415; 36416; 51702; 70450; 71045; 72125; 80048; 80053; 80202; 80306; 80307; 81003; 81015; 82550; 82553; 82805; 84443; 84484; 85025; 85027; 85610; 85730; 87070; 87077; 87186; 87340; 90935; 93005; 94002; 94003; 94640; 95712; 95816; 95819; 96365; 96366; 96368; 96375; 96376; 99292; C9113; G0257; J0692; J1644; J1815; J1940; J1953; J1956; J2001; J2060; J2270; J2310; J2405; J2543; J2704; J2765; J2920; J3010; J3370; J3475; J3490; J7050; U0002